=== PATIENT | female | born 1995 | race African-American/Black ===

== ENCOUNTER 2020-04-15 09:07 | Emergency (ER) | payer BC, SELFPAY ==
[2020-04-15] VITALS (15 sets, daily range): BP systolic 110–142; BP diastolic 50–79; PULSE 89–113; RESP 14–20; TEMP 36.5–37.2; O2SAT 96–100; BMI 39.8
--- NOTE | 2020-04-15 09:27 | ED_ITS ---
HPI - Dizziness General Chief Complaint: Syncope Time Seen by Provider: 04/15/20 09:17 Source: patient Mode of arrival: ambulatory Limitations: no limitations History of Present Illness HPI Narrative: 24 yo female with past medical history of PCOS, endometriosis here with 2 episodes of feeling lightheaded and she might pass out at home. She tells me she was moving around at work and coworkers told her she looked pale and then she felt lightneaded. Sat down and felt improved but second episode occcurred with standing. +vaginal bleeding for 1.5 months, varies day by day. 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 Intermittent lower abdominal cramping. Has tried multiple oral BCP but has side effects of abdominal pain and GI upset and stopped these. Tried patch but did not help with heavy bleeding so stopped that. She is currently not on any control. Has [facility] WORKER in [facility] but does not remember his name. Last saw approximately one year ago. H/o heavy bleeding requiring blood transfusion (last august/2019). MD elicited complaint: lightheadedness Onset (ago): day(s) (1 day) Timing: intermittent and episodic Severity: mild Description: lightheadedness Context: change in medication History of similar symptoms: Yes Exacerbating factors: change in body position Relieving factors: lying down Associated symptoms: abnormal vaginal bleeding Related Data Previous Rx's Medication Instructions Recorded norgestimate-ethinyl estradiol 1 tab PO DAILY #28 tab 04/15/20 [Sprintec (28)] Allergies Allergy/AdvReac Type Severity Reaction Status Date / Time acetaminophen [Percocet] Allergy Unknown Verified 06/06/17 00:00 quetiapine [From SEROQUEL] Allergy Unknown ANAPHYLAXIS Unverified 03/02/20 18:37 oxycodone [From PERCOCET] AdvReac Unknown UNKNOWN Unverified 03/02/20 18:37 percocet Allergy Unknown sweating, Uncoded 08/18/17 00:00 rapid heart beat Review of Systems Review of Systems: Yes all other systems are reviewed and are negative Constitutional: Constitutional: Reports no additional constitutional complaints, Denies body ache(s), Denies chills, Denies fever(s), Denies headache(s) and Denies weakness Eyes: Eyes: Reports no additional eye complaints and Denies change in vision ENT: Reports system reviewed and no additional complaints, except as documented, Reports dizziness, Denies headache(s), Denies nasal congestion, Denies nasal discharge and Denies neck pain Cardiovascular: Cardiovascular: Reports no additional cardiovascular complaints, Denies chest pain, Denies leg edema and Denies dyspnea Respiratory: Respiratory: Reports no additional respiratory complaints, Denies cough and Denies dyspnea Gastrointestinal: Gastrointestinal: Reports no additional gastrointestinal complaints, Denies abdominal pain, Denies diarrhea, Denies nausea and Denies vomiting Genitourinary: Genitourinary: Reports no additional female genitourinary complaints, Reports menorrhagia and Denies urinary incontinence Musculoskeletal: Musculoskeletal: Reports no additional musculoskeletal complaints, Denies back pain, Denies arthralgias, Denies joint swelling, Denies neck pain, Denies numbness and Denies tingling Integumentary/Breasts: Skin/Breast: Reports system reviewed and no additional complaints, except as docu and Denies rash Neurologic: Reports system reviewed and no additional complaints, except as documented, Denies Abnormal speech present, Reports dizziness, Denies headache(s), Denies numbness, Denies tingling and Denies weakness PMFSH Past Medical History Attestation statement: The following information was validated with the patient. Source: old records reviewed, obtained from family and nursing notes reviewed Medical History No known health problems Social History Social History Alcohol intake: never Smoking Status: Never smoker Use of substances other than those prescribed or required for medical reasons: No Advance Directives: No Advance Directives Information Provided: No Physical Exam Vital Signs: Vital Signs: Vital Signs Temp Pulse Resp BP Pulse Ox 04/15/20 17:01 98.8 F 91 16 120/72 04/15/20 16:58 98.8 F 91 16 120/72 04/15/20 15:19 98.6 F 90 18 112/64 04/15/20 15:08 98.3 F 96 14 110/62 98 04/15/20 14:34 98.3 F 96 16 117/50 L 04/15/20 14:19 97.7 F 113 H 16 142/74 H 04/15/20 11:47 98.2 F 93 14 117/64 96 04/15/20 11:04 97 04/15/20 10:53 106 H 118/74 04/15/20 10:52 100 128/76 04/15/20 09:19 98.9 F 103 H 18 124/77 100 Body Mass Index 39.8 Const: General: cooperative, healthy appearing, comfortable and no acute distress Orientation/consciousness: patient oriented x3 Limitations: no limitations HENMT: Head: Yes normal to inspection Ears: hearing grossly normal bilaterally General nose exam: Normal external nose present Face and sinus: Yes normal facial exam Mouth: Normal oral and palatal mucosa present Throat: Yes posterior oropharynx normal Eyes: General: appearance normal, both eyes and all related structures Pupils: Equal, round and reactive pupils present Neck: Neck: Yes normal visual inspection Chest: Chest palpation & inspection: normal inspection of the chest Resp: Effort & Inspection: normal respiratory effort Auscultation: clear to auscultation bilaterally Cardio: Rate: regular rate Rhythm: regular rhythm Peripheral pulses: Peripheral pulses 2+ throughout GI: Inspection: Yes normal to inspection Palpation (GI): Soft to palpation and nontender Auscultation: normal bowel sounds Back/Spine/Pelvis: Thoracic/Lumbar Spine: thoracic and lumbar spine normal to inspection Skin: General skin exam: no rashes or lesions noted Neuro: General: patient oriented x3, no focal motor deficits and normal sensation to monofilament Cranial nerves: Yes Equal, round and reactive pupils present Cognition (Neuro): normal cognition Speech: No Abnormal speech present Gait exam (Neuro): Normal gait present Motor exam (neuro): 5/5 motor strength present throughout Extrem: General: Yes normal to inspection Course Course Course Narrative: Pt here with 1.5 months of heavy vaginal bleeding, h/o same requiring blood transfusion with 2 episodes today of near syncope while working. Will need labs, UA, ur , orthostatics and pelvic exam. 1045-Hgb 6.3. Last 9.9 02/08/20. Type and screen ordered. Blood consent done. p elvic exam shows small amounts of bleeding, one clot evacuated. Pending additional labs, orthostatics. Will transfuse, d/w with [employer] WORK[employer]. 1050-Additional labs unremarkable. Orthostatics (no changes in heart rate, 15 point drop in systolic blood pressure). 1100-Discussed with Dr Cardoza, recommended hematology consult outpatient, O[employer] WORKER f/u in 1 week, starl on oral monophasic BCP. 1700-Sign out to Ysabel RAMOS pending re-check CBC post blood and discharge home. MDM - Dizziness MDM Narrative Medical decision making narrative: Considered dysfunctional uterine bleeding, ectopic , SAB, anemia, orthostatic hypotension. Medical Records Attestation: I reviewed the patient's medical records. Lab Data Attestation: I reviewed the patient's lab results. Result diagrams: 04/15/20 09:59 04/15/20 09:59 Labs: Lab Results 04/15/20 04/15/20 04/15/20 Range/Units 09:33 09:33 09:59 WBC 6.8 (4.8-10.8) X10*3/uL RBC 3.02 L (4.20-5.50) X10*6/uL Hgb 6.3 L* (12.0-16.0) g/dl Hct 22.0 L (37-47) % MCV 72.8 L (80-98) fL MCH 20.9 L (27.0-33.0) pg MCHC 28.6 L (31.0-35.0) g/dl RDW 19.0 H (11.0-16.0) % Plt Count 345 (160-400) X10*3/uL MPV 10.7 (9.4-12.3) fL Immature Gran % (Auto) 0.4 (0.0-0.4) % Neut % (Auto) 71.2 (45-73) % Lymph % (Auto) 24.3 (20-40) % [place]ke[place] % (Auto) 3.2 (2-11) % Eos % (Auto) 0.6 (0-4) % Baso % (Auto) 0.3 (0-2) % Lymph # (Auto) 1.7 (1.2-4.9) X10*3/uL [place] # (Auto) 0.2 (0.1-1.2) X10*3/uL Eos # (Auto) 0.0 (0.0-0.4) X10*3/uL Baso # (Auto) 0.0 (0.0-0.2) X10*3/uL Abs Immat Gran (auto) 0.03 (0.00-0.03) X10*3/uL Absolute Neuts (auto) 4.8 (2.0-8.3) X10*3/uL Absolute Nucleated RBC 0.000 (0.0-0.012) X10*3/uL Nucleated RBC % (auto) 0.0 (0.0-0.2) /100WBC PT (10.8-13.0) SEC INR (0.9-1.1) Sodium (135-145) mmol/L Potassium (3.3-5.1) mmol/l Chloride (96-108) mmol/L Carbon Dioxide (22-29) mmol/L Anion Gap (12-20) BUN (9-16) mg/dL Creatinine (0.5-1.4) mg/dL Estim Creat Clear Calc Estimated GFR Random Glucose (60-115) mg/dL Calcium (8.4-10.2) mg/dL Urine Color STRAW Urine Appearance CLEAR Urine pH 6.0 (5.0-8.0) Ur Specific [place] <= 1.005 (1.005-1.025) Urine Protein NEG (NEG-TRACE) MG/DL Urine Glucose (UA) NEG (NEG) MG/DL Urine Ketones NEG (NEG) MG/DL Urine Blood 3+ H (NEG) Urine Nitrite NEG (NEG) Ur Leukocyte Esterase NEG (NEG) Urine RBC 0-2 (0) /HPF Urine WBC 0-2 (0-4) /HPF Ur Squamous Epith Cells TRACE /LPF Urine Bacteria NONE /LPF Urine Test NEGATIVE (NEGATIVE) Blood Type Antibody Screen Crossmatch 04/15/20 04/15/20 04/15/20 Range/Units 09:59 09:59 11:00 WBC (4.8-10.8) X10*3/uL RBC (4.20-5.50) X10*6/uL Hgb (12.0-16.0) g/dl Hct (37-47) % MCV (80-98) fL MCH (27.0-33.0) pg MCHC (31.0-35.0) g/dl RDW (11.0-16.0) % Plt Count (160-400) X10*3/uL MPV (9.4-12.3) fL Immature Gran % (Auto) (0.0-0.4) % Neut % (Auto) (45-73) % Lymph % (Auto) (20-40) % [place]ke[place] % (Auto) (2-11) % Eos % (Auto) (0-4) % Baso % (Auto) (0-2) % Lymph # (Auto) (1.2-4.9) X10*3/uL [place] # (Auto) (0.1-1.2) X10*3/uL Eos # (Auto) (0.0-0.4) X10*3/uL Baso # (Auto) (0.0-0.2) X10*3/uL Abs Immat Gran (auto) (0.00-0.03) X10*3/uL Absolute Neuts (auto) (2.0-8.3) X10*3/uL Absolute Nucleated RBC (0.0-0.012) X10*3/uL Nucleated RBC % (auto) (0.0-0.2) /100WBC PT 11.9 (10.8-13.0) SEC INR 1.0 (0.9-1.1) Sodium 136 (135-145) mmol/L Potassium 4.2 (3.3-5.1) mmol/l Chloride 106 (96-108) mmol/L Carbon Dioxide 22 (22-29) mmol/L Anion Gap 12 (12-20) BUN 12 (9-16) mg/dL Creatinine 0.85 (0.5-1.4) mg/dL Estim Creat Clear Calc 119.6 Estimated GFR > 60 Random Glucose 104 (60-115) mg/dL Calcium 8.0 L (8.4-10.2) mg/dL Urine Color Urine Appearance Urine pH (5.0-8.0) Ur Specific [place] (1.005-1.025) Urine Protein (NEG-TRACE) MG/DL Urine Glucose (UA) (NEG) MG/DL Urine Ketones (NEG) MG/DL Urine Blood (NEG) Urine Nitrite (NEG) Ur Leukocyte Esterase (NEG) Urine RBC (0) /HPF Urine WBC (0-4) /HPF Ur Squamous Epith Cells /LPF Urine Bacteria /LPF Urine Test (NEGATIVE) Blood Type B Positive Antibody Screen NEGATIVE Crossmatch See Detail ECG Data Attestation: I personally reviewed and interpreted this ECG as follows: ECG interpretation date: 04/15/20 ECG interpretation time: 09:56 Interpretation: NSR, Normal AR, Normal QRS, Normal ST Discharge Plan Discharge Clinical Impression: Near syncope, DUB (dysfunctional uterine bleeding), Anemia Patient Disposition: Home, Self-Care Instructions: Dysfunctional Uterine Bleeding (ED), Near Syncope (ED), Anemia (ED) Additional Instructions: Follow-up with ODD JOBS DAY WORKER ( you may see your own ODD JOBS DAY WORKER or see our ODD JOBS DAY WORKER. I have attached the number for Dr Cardoza here). See them in one week. Follow-up with hematology. You need to call to make appointment. You may see [facility] for other control options but you NEED to see a OB doctor as well. See attached list for tapestry. Start control pack per recommendations. Prescriptions: New norgestimate-ethinyl estradiol [Sprintec (28)] 0.25-35 mg-mcg tablet 1 tab PO DAILY Qty: 28 RF: 0 Referrals: Jaclyn Rios MD [Physician] - 2 days Physician,None [Primary Care Provider] - 2 days Jose Cardoza MD [Physician] - 2 days Stand Alone Forms: Work/School Release Sign Out Sign Out Data: Sign Out Comment: pending repeat cbc post prbc infusion. Last updated by Verónica Driscoll NP at 04/15/20 17:17
[2020-04-15 09:41] LABS: Glucose Urine UA NEG (NEG); Leukocyte Esterase Urine NEG (NEG); Nitrite Urine NEG (NEG); Specific Gravity - Urine <= 1.005 (1.005-1.025); Urine Blood 3+ (NEG); Urine Ketones NEG (NEG); Urine Protein NEG (NEG-TRACE)
[2020-04-15 09:43] LABS: Appearance Urine CLEAR; Color Urine STRAW
[2020-04-15 09:44] LABS: UPreg QC Valid YES; Urine Pregnancy NEGATIVE (NEGATIVE)
[2020-04-15 09:50] LABS: RBC Urine 0-2 /HPF (0); Squamous Epithelial Cell Urine TRACE /LPF; WBC Urine 0-2 /HPF (0-4)
[2020-04-15 10:08] LABS: MANUAL DIFF FLAG NO
[2020-04-15 10:36] LABS: Basophils Percent Auto 0.3 % (0-2); Eosinophils Percent Auto 0.6 % (0-4); Imm Gran Abs Auto 0.03 X10*3/uL (0.00-0.03); Imm Gran Pct Auto 0.4 % (0.0-0.4); Lymphocytes Absolute Auto 1.7 X10*3/uL (1.2-4.9); Lymphocytes Percent Auto 24.3 % (20-40); Mean Corpuscular HGB Conc 28.6 g/dl (31.0-35.0); Mean Corpuscular Hemoglobin 20.9 pg (27.0-33.0); Mean Corpuscular Volume 72.8 fL (80-98); Mean Platelet Volume 10.7 fL (9.4-12.3); Monocytes Absolute Auto 0.2 X10*3/uL (0.1-1.2); Monocytes Percent Auto 3.2 % (2-11); Neutrophils Absolute Auto 4.8 X10*3/uL (2.0-8.3); Neutrophils Percent Auto 71.2 % (45-73); Platelet Count 345 X10*3/uL (160-400); Red Blood Count 3.02 X10*6/uL (4.20-5.50); White Blood Count 6.8 X10*3/uL (4.8-10.8)
[2020-04-15 10:40] LABS: Hemoglobin 6.3 g/dl (12.0-16.0); Prothrombin Time 11.9 SEC (10.8-13.0)
[2020-04-15 10:51] LABS: Anion Gap 12 (12-20); Blood Urea Nitrogen 12 mg/dL (9-16); Carbon Dioxide 22 mmol/L (22-29); Chloride 106 mmol/L (96-108); Creatinine Clr Calc Pharmacy 119.6; Estimated Glomerular Filt Rate > 60; Glucose Random 104 mg/dL (60-115); Potassium 4.2 mmol/l (3.3-5.1); Sodium 136 mmol/L (135-145)
--- NOTE | 2020-04-15 11:01 | ED_ITS ---
HPI - Female Genitourinary General Chief complaint: Syncope Time Seen by Provider: 04/15/20 09:17 Source: patient Mode of arrival: ambulatory Limitations: no limitations History of Present Illness HPI Narrative: Was called by Americo Sanches PA regarding this patient because of a month and a half history of heavy vaginal bleeding. Patient came in with near syncope to the emergency room. Her Menstrual flow today is mild. Patient has a history of blood transfusion in August of 2019. 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 No other symptoms Severity: mild Related Data Allergies Allergy/AdvReac Type Severity Reaction Status Date / Time acetaminophen [Percocet] Allergy Unknown Verified 06/06/17 00:00 quetiapine [From SEROQUEL] Allergy Unknown ANAPHYLAXIS Unverified 03/02/20 18:37 oxycodone [From PERCOCET] AdvReac Unknown UNKNOWN Unverified 03/02/20 18:37 percocet Allergy Unknown sweating, Uncoded 08/18/17 00:00 rapid heart beat Review of Systems Review of Systems: Yes all other systems are reviewed and are negative Constitutional: Constitutional: Denies headache(s) and Denies weakness ENT: Reports dizziness and Denies headache(s) Cardiovascular: Cardiovascular: Denies chest pain, Denies irregular heart rhythm, Denies dyspnea and Denies dyspnea on exertion Respiratory: Respiratory: Reports no additional respiratory complaints, Denies cough, Denies dyspnea and Denies dyspnea on exertion Gastrointestinal: Gastrointestinal: Reports no additional gastrointestinal complaints, Denies abdominal pain, Denies change in bowel habits, Denies nausea and Denies vomiting Genitourinary: Genitourinary: Reports no additional female genitourinary complaints Musculoskeletal: Musculoskeletal: Denies numbness and Denies tingling Neurologic: Reports system reviewed and no additional complaints, except as documented, Denies Abnormal speech present, Reports dizziness, Denies headache(s), Denies numbness, Denies tingling and Denies weakness PMFSH Past Medical History Medical History No known health problems Social History Social History Alcohol intake: never Smoking Status: Never smoker Use of substances other than those prescribed or required for medical reasons: No Advance Directives: No Advance Directives Information Provided: No Physical Exam Vital Signs: Vital Signs: Vital Signs Temp Pulse Resp BP Pulse Ox 04/15/20 11:04 97 04/15/20 10:53 106 H 118/74 04/15/20 10:52 100 128/76 04/15/20 09:19 98.9 F 103 H 18 124/77 100 Body Mass Index 39.8 No exam done, per RICHARD More vital signs showed orthostatic changes, pelvic exam showed mild bleeding no any evidence of active bleeding, otherwise negative Neuro: Speech: No Abnormal speech present Course Course Course Narrative: Since the patient is not in active bleeding, test is negative, hemoglobin/hematocrit is 6.3/22, recommended 2 units of packed RBCs, IV hydration, hemodynamically stabilized the patient, monophasic control pill to be started, follow-up with OBGYN early next week, follow-up with Hematology to rule hematologic disorders causing heavy bleeding, instruction to be given to the patient call back if bleeding is heavy. MDM - Female Genitourinary Lab Data Result diagrams: 04/15/20 09:59 04/15/20 09:59 Labs: Lab Results 04/15/20 04/15/20 04/15/20 Range/Units 09:33 09:33 09:59 WBC 6.8 (4.8-10.8) X10*3/uL RBC 3.02 L (4.20-5.50) X10*6/uL Hgb 6.3 L* (12.0-16.0) g/dl Hct 22.0 L (37-47) % MCV 72.8 L (80-98) fL MCH 20.9 L (27.0-33.0) pg MCHC 28.6 L (31.0-35.0) g/dl RDW 19.0 H (11.0-16.0) % Plt Count 345 (160-400) X10*3/uL MPV 10.7 (9.4-12.3) fL Immature Gran % (Auto) 0.4 (0.0-0.4) % Neut % (Auto) 71.2 (45-73) % Lymph % (Auto) 24.3 (20-40) % [place] % (Auto) 3.2 (2-11) % Eos % (Auto) 0.6 (0-4) % Baso % (Auto) 0.3 (0-2) % Lymph # (Auto) 1.7 (1.2-4.9) X10*3/uL [place] # (Auto) 0.2 (0.1-1.2) X10*3/uL Eos # (Auto) 0.0 (0.0-0.4) X10*3/uL Baso # (Auto) 0.0 (0.0-0.2) X10*3/uL Abs Immat Gran (auto) 0.03 (0.00-0.03) X10*3/uL Absolute Neuts (auto) 4.8 (2.0-8.3) X10*3/uL Absolute Nucleated RBC 0.000 (0.0-0.012) X10*3/uL Nucleated RBC % (auto) 0.0 (0.0-0.2) /100WBC PT (10.8-13.0) SEC INR (0.9-1.1) Sodium (135-145) mmol/L Potassium (3.3-5.1) mmol/l Chloride (96-108) mmol/L Carbon Dioxide (22-29) mmol/L Anion Gap (12-20) BUN (9-16) mg/dL Creatinine (0.5-1.4) mg/dL Estim Creat Clear Calc Estimated GFR Random Glucose (60-115) mg/dL Calcium (8.4-10.2) mg/dL Urine Color STRAW Urine Appearance CLEAR Urine pH 6.0 (5.0-8.0) Ur Specific [place] <= 1.005 (1.005-1.025) Urine Protein NEG (NEG-TRACE) MG/DL Urine Glucose (UA) NEG (NEG) MG/DL Urine Ketones NEG (NEG) MG/DL Urine Blood 3+ H (NEG) Urine Nitrite NEG (NEG) Ur Leukocyte Esterase NEG (NEG) Urine RBC 0-2 (0) /HPF Urine WBC 0-2 (0-4) /HPF Ur Squamous Epith Cells TRACE /LPF Urine Bacteria NONE /LPF Urine Test NEGATIVE (NEGATIVE) Crossmatch 04/15/20 04/15/20 04/15/20 Range/Units 09:59 09:59 11:00 WBC (4.8-10.8) X10*3/uL RBC (4.20-5.50) X10*6/uL Hgb (12.0-16.0) g/dl Hct (37-47) % MCV (80-98) fL MCH (27.0-33.0) pg MCHC (31.0-35.0) g/dl RDW (11.0-16.0) % Plt Count (160-400) X10*3/uL MPV (9.4-12.3) fL Immature Gran % (Auto) (0.0-0.4) % Neut % (Auto) (45-73) % Lymph % (Auto) (20-40) % [place] % (Auto) (2-11) % Eos % (Auto) (0-4) % Baso % (Auto) (0-2) % Lymph # (Auto) (1.2-4.9) X10*3/uL [place] # (Auto) (0.1-1.2) X10*3/uL Eos # (Auto) (0.0-0.4) X10*3/uL Baso # (Auto) (0.0-0.2) X10*3/uL Abs Immat Gran (auto) (0.00-0.03) X10*3/uL Absolute Neuts (auto) (2.0-8.3) X10*3/uL Absolute Nucleated RBC (0.0-0.012) X10*3/uL Nucleated RBC % (auto) (0.0-0.2) /100WBC PT 11.9 (10.8-13.0) SEC INR 1.0 (0.9-1.1) Sodium 136 (135-145) mmol/L Potassium 4.2 (3.3-5.1) mmol/l Chloride 106 (96-108) mmol/L Carbon Dioxide 22 (22-29) mmol/L Anion Gap 12 (12-20) BUN 12 (9-16) mg/dL Creatinine 0.85 (0.5-1.4) mg/dL Estim Creat Clear Calc 119.6 Estimated GFR > 60 Random Glucose 104 (60-115) mg/dL Calcium 8.0 L (8.4-10.2) mg/dL Urine Color Urine Appearance Urine pH (5.0-8.0) Ur Specific [place] (1.005-1.025) Urine Protein (NEG-TRACE) MG/DL Urine Glucose (UA) (NEG) MG/DL Urine Ketones (NEG) MG/DL Urine Blood (NEG) Urine Nitrite (NEG) Ur Leukocyte Esterase (NEG) Urine RBC (0) /HPF Urine WBC (0-4) /HPF Ur Squamous Epith Cells /LPF Urine Bacteria /LPF Urine Test (NEGATIVE) Crossmatch See Detail Discharge Plan Discharge Clinical Impression: Syncope due to orthostatic hypotension
[2020-04-15] MEDS: 0.9 % Sodium Chloride 1,000 ML 999 ML IV (11:08)
--- NOTE | 2020-04-15 18:58 | PC.NURSE ---
pt recieved first ordered unit of rbc at 1419, verified by tata perla. pt finished first unit of rbc at 1658. correlating documentation shows all required vital signs which were all within normal limits, no evidence of reaction to tranfusion. at this time, both units transfused. provider aware. repeat cbc ordered and potential dc if wnl.
--- NOTE | 2020-04-15 19:16 | PC.NURSE ---
report received from Lui Darling. pt has received both blood transfusions and post cbc being drawn at this time. pt denies pain. iv sight flushed patent and benign. pt states she is still passing dark red blood. skin warm and dry vitals stable.
[2020-04-15 19:32] LABS: MANUAL DIFF FLAG NO
[2020-04-15 19:41] LABS: Basophils Percent Auto 0.1 % (0-2); Eosinophils Absolute Auto 0.1 X10*3/uL (0.0-0.4); Eosinophils Percent Auto 0.5 % (0-4); Hematocrit 30.6 % (37-47); Hemoglobin 9.3 g/dl (12.0-16.0); Imm Gran Abs Auto 0.03 X10*3/uL (0.00-0.03); Imm Gran Pct Auto 0.3 % (0.0-0.4); Lymphocytes Absolute Auto 2.4 X10*3/uL (1.2-4.9); Lymphocytes Percent Auto 21.7 % (20-40); Mean Corpuscular HGB Conc 30.4 g/dl (31.0-35.0); Mean Corpuscular Volume 78.9 fL (80-98); Mean Platelet Volume 10.7 fL (9.4-12.3); Monocytes Absolute Auto 0.4 X10*3/uL (0.1-1.2); NRBC Pct Auto 0.2 /100WBC (0.0-0.2); Neutrophils Percent Auto 73.4 % (45-73); Platelet Count 264 X10*3/uL (160-400); Red Blood Count 3.88 X10*6/uL (4.20-5.50); Red Cell Distribution Width 22.3 % (11.0-16.0); White Blood Count 10.9 X10*3/uL (4.8-10.8)
--- NOTE | 2020-04-17 | ECG_ITS ---
Test Reason : SYNCOPE Blood Pressure : / mmHG Vent. Rate : 093 BPM Atrial Rate : 093 BPM P-R Int : 140 ms QRS Dur : 078 ms QT Int : 358 ms P-R-T Axes : 024 027 022 degrees QTc Int : 445 ms Normal sinus rhythm Normal ECG When compared with ECG of 06-JUL-2019 01:22, No significant change was found Referred By: Tomasz Scott Electronically Signed By:SANTY PANIAGUA MD
== END 2020-04-15 20:51 | disposition home or self-care (01) ==
PROVIDERS: Nurse Practitioner Family; Physician Assistant; Emergency Provider Emergency Medicine
DX: I95.1 Orthostatic hypotension (principal); Z20.828 Contact with and (suspected) exposure to other viral communicable diseases
CPT/HCPCS: 36415; 36430; 80048; 81001; 81025; 85025; 85060; 85610; 86850; 86900; 86901; 86920; 86923; 93005; 96360; 99285; P9016

== ENCOUNTER 2020-11-16 06:47 | Emergency (ER) | payer BC, SELFPAY ==
--- NOTE | ~2020-11-16 | US_ITS ---
EXAMINATION: US ABDOMEN LIMITED CLINICAL INFORMATION: Right upper quadrant pain, rule out gallbladder abnormality. COMPARISON: CT scan of the abdomen and pelvis and abdominal ultrasound dated 02/08/2020. TECHNIQUE: Real-time imaging of the right upper quadrant abdominal viscera. FINDINGS: PANCREAS: Visualized portions unremarkable. LIVER: Small anechoic cyst adjacent to the gallbladder measures 0.8 cm. GALLBLADDER: Unremarkable. COMMON BILE DUCT: Normal in caliber measuring 0.3 cm in diameter. RIGHT KIDNEY: 9.7 cm. Unremarkable. FREE FLUID: None. US/US abdomen limited IMPRESSION: 1. No significant gallbladder abnormality. 2. Small hepatic cyst adjacent to the gallbladder demonstrates benign features.
--- NOTE | 2020-11-16 07:04 | ED_ITS ---
HPI - Nausea/Vomiting/Diarrhea General Chief complaint: General Medical Stated complaint: nausea/vomiting Time Seen by Provider: 11/16/20 07:04 Source: patient Mode of arrival: ambulatory Limitations: no limitations History of Present Illness MD elicited complaint: nausea, vomiting and abdominal pain Pertinent past history: other (GERD) Onset (ago): day(s) (last night) Associated nausea: Yes Associated abdominal pain: Yes Location of pain: epigastric and RUQ Pain consistency: constant Severity: moderate Quality: stabbing Exacerbating factors: eating Relieving factors: none Context: other (started after eating BBQ and ribs) Associated symptoms: loss of appetite, malaise and nausea/vomiting Treatment prior to arrival: immodium and other OTC medicine Related Data Previous Rx's Medication Instructions Recorded norgestimate-ethinyl estradiol 1 tab PO DAILY #28 tab 04/15/20 [Sprintec (28)] famotidine [Pepcid] 20 mg PO DAILY PRN #30 tab 11/16/20 ondansetron 4 mg PO Q8H PRN #20 tab 11/16/20 Allergies Allergy/AdvReac Type Severity Reaction Status Date / Time acetaminophen [Percocet] Allergy Unknown Verified 06/06/17 00:00 quetiapine [From SEROQUEL] Allergy Unknown ANAPHYLAXIS Unverified 03/02/20 18:37 oxycodone [From PERCOCET] AdvReac Unknown UNKNOWN Unverified 03/02/20 18:37 percocet Allergy Unknown sweating, Uncoded 08/18/17 00:00 rapid heart beat Review of Systems Review of Systems: Constitutional : No Weight loss, No Fever, No Chills ENT/Mouth : No sore throat, No Rhinorrhea Eyes: No Swelling, No Redness Cardiovascular : No Chest Pain, No SOB, NoEdema Respiratory : No Cough, No Sputum, No Wheezing Gastrointestinal : Positive Nausea, Positive Vomiting, no Diarrhea, positive abdominal Pain, No Hematochezia, No Melena Genitourinary : No Dysuria, No Urinary Frequency, No Hematuria, No Urgency Musculoskeletal : No joint pain, No Myalgias, No Joint Swelling Skin : No Skin Lesions, No rash Neuro : No Weakness, No Numbness, No Dizziness, No Headache Psych : No Anxiety/Panic, No Depression Heme/Lymph: No Bruising, No Lymphadenopathy Endocrine : No Polyuria, No Polydipsia All other systems reviewed and are negative. Gastrointestinal: Gastrointestinal: Reports nausea PMFSH Past Medical History Attestation statement: The following information was validated with the patient. Medical History (Updated 11/16/20 @ 09:27 by Kisha Cook DO) Endometriosis No known health problems PCOS (polycystic ovarian syndrome) Social History Social History (Updated 11/16/20 @ 07:19 by Kisha Cook DO) Alcohol intake: never Patient Tobacco Use Status: Never used Tobacco Use of substances other than those prescribed or required for medical reasons: No Advance Directives: Yes Advance Directives Information Provided: No Advance Directives on File: No Patient : No Physical Exam Vital Signs: Vital Signs: Last Vital Signs Temp 98.2 F 11/16/20 09:19 Pulse 80 11/16/20 09:19 Resp 18 11/16/20 09:19 BP 128/84 11/16/20 09:19 Pulse Ox 99 11/16/20 09:19 Body Mass Index 42.9 Appearance: Alert. Oriented X3. No acute distress. Eyes: Pupils equal, round and reactive to light. ENT: Pharynx normal. Neck: Normal inspection. Neck supple. CVS: Normal heart rate and rhythm. Pulses normal. Respiratory: No respiratory distress. Breath sounds normal. Abdomen: Soft and moderate RUQ pain + [place] sign Skin: Skin warm and dry. Normal skin color. Normal skin turgor. Extremities: No lower extremity edema. No calf ttp Neuro: Oriented X 3. No motor deficit. No sensory deficit. Course Course Course Narrative: no acute findings, stable for DC MDM - Nausea/Vomiting/Diarrhea MDM Narrative Medical decision making narrative: 25 yo female with endometriosis/PCOS here with RUQ pain after eating BBQ at this time will need labs, IVF, IV pain medications, US to evaluate gallbadder, dispo per results and findings. Lab Data Result diagrams: 11/16/20 07:32 11/16/20 07:32 Labs: Lab Results 11/16/20 11/16/20 11/16/20 Range/Units 07:32 07:32 07:32 WBC 7.1 (4.8-10.8) X10*3/uL RBC 4.77 D (4.20-5.50) X10*6/uL Hgb 10.4 L (12.0-16.0) g/dl Hct 34.3 L (37-47) % MCV 71.9 L (80-98) fL MCH 21.8 L (27.0-33.0) pg MCHC 30.3 L (31.0-35.0) g/dl RDW 18.7 H (11.0-16.0) % Plt Count 373 D (160-400) X10*3/uL MPV 10.4 (9.4-12.3) fL Immature Gran % (Auto) 0.3 (0.0-0.4) % Neut % (Auto) 67.8 (45-73) % Lymph % (Auto) 27.1 (20-40) % [place] % (Auto) 3.7 (2-11) % Eos % (Auto) 0.8 (0-4) % Baso % (Auto) 0.3 (0-2) % Lymph # (Auto) 1.9 (1.2-4.9) X10*3/uL [place] # (Auto) 0.3 (0.1-1.2) X10*3/uL Eos # (Auto) 0.1 (0.0-0.4) X10*3/uL Baso # (Auto) 0.0 (0.0-0.2) X10*3/uL Abs Immat Gran (auto) 0.02 (0.00-0.03) X10*3/uL Absolute Neuts (auto) 4.8 (2.0-8.3) X10*3/uL Absolute Nucleated RBC 0.000 (0.0-0.012) X10*3/uL Nucleated RBC % (auto) 0.0 (0.0-0.2) /100WBC Hold Blue Top SEE NOTE Sodium 138 (135-145) mmol/L Potassium 4.4 (3.3-5.1) mmol/L Chloride 107 (96-108) mmol/L Carbon Dioxide 22 (22-29) mmol/L Anion Gap 13 (12-20) BUN 18 H (9-16) mg/dL Creatinine 0.97 (0.5-1.4) mg/dL Estim Creat Clear Calc 108.5 Estimated GFR > 60 Random Glucose 110 (60-115) mg/dL Calcium 9.1 D (8.4-10.2) mg/dL Magnesium 2.1 (1.6-2.6) mg/dL Total Bilirubin 0.6 (0.0-1.0) mg/dL Direct Bilirubin 0.2 (0.0-0.5) mg/dL AST 17 (5-31) U/L ALT 15 (0-31) U/L Alkaline Phosphatase 74 (39-117) U/L Total Protein 8.0 (6.5-8.0) g/dL Albumin 4.2 (3.5-5.0) g/dL Lipase 19 (8-78) U/L Discharge Plan Discharge Clinical Impression: Gastritis Qualifiers: Gastritis type: unspecified gastritis Chronicity: acute Gastritis bleeding: without bleeding Qualified Code(s): K29.00 - Acute gastritis without bleeding Patient Disposition: Home, Self-Care Instructions: Gastritis (ED) Additional Instructions: return to ED for any worsening symptoms or concerns Prescriptions: New famotidine [Pepcid] 20 mg tablet 20 mg PO DAILY PRN (Reason: abdominal discomfort) Qty: 30 RF: 0 ondansetron 4 mg tablet,disintegrating 4 mg PO Q8H PRN (Reason: nausea and vomiting) Qty: 20 RF: 0 No Action norgestimate-ethinyl estradiol [Sprintec (28)] 0.25-35 mg-mcg tablet 1 tab PO DAILY Qty: 28 RF: 0 Stand Alone Forms: Work/School Release
[2020-11-16 07:11] VITALS: BP 128/84; PULSE 98; RESP 16; TEMP 36.9; O2SAT 97; BMI 42.9
[2020-11-16] MEDS: 0.9 % Sodium Chloride 1,000 ML 999 ML IVCONT (07:29)
[2020-11-16] MEDS: Famotidine/PF 20 MG/2 ML VIAL IVPUSH (07:35)
[2020-11-16] MEDS: ondansetron HCL 4 MG/2 ML VIAL IVPUSH (07:35)
[2020-11-16] MEDS: Ketorolac Tromethamine 30 MG/ML VIAL IVPUSH (07:35)
[2020-11-16 07:36] LABS: MANUAL DIFF FLAG NO
[2020-11-16 07:41] LABS: Basophils Percent Auto 0.3 % (0-2); Eosinophils Absolute Auto 0.1 X10*3/uL (0.0-0.4); Eosinophils Percent Auto 0.8 % (0-4); Hematocrit 34.3 % (37-47); Hemoglobin 10.4 g/dl (12.0-16.0); Imm Gran Abs Auto 0.02 X10*3/uL (0.00-0.03); Imm Gran Pct Auto 0.3 % (0.0-0.4); Lymphocytes Absolute Auto 1.9 X10*3/uL (1.2-4.9); Lymphocytes Percent Auto 27.1 % (20-40); Mean Corpuscular HGB Conc 30.3 g/dl (31.0-35.0); Mean Corpuscular Hemoglobin 21.8 pg (27.0-33.0); Mean Corpuscular Volume 71.9 fL (80-98); Mean Platelet Volume 10.4 fL (9.4-12.3); Monocytes Absolute Auto 0.3 X10*3/uL (0.1-1.2); Monocytes Percent Auto 3.7 % (2-11); Neutrophils Absolute Auto 4.8 X10*3/uL (2.0-8.3); Neutrophils Percent Auto 67.8 % (45-73); Platelet Count 373 X10*3/uL (160-400); Red Blood Count 4.77 X10*6/uL (4.20-5.50); Red Cell Distribution Width 18.7 % (11.0-16.0); White Blood Count 7.1 X10*3/uL (4.8-10.8)
[2020-11-16 08:09] LABS: Alanine Aminotransferase 15 U/L (0-31); Albumin Level 4.2 g/dL (3.5-5.0); Alkaline Phosphatase 74 U/L (39-117); Anion Gap 13 (12-20); Aspartate Amino Transferase 17 U/L (5-31); Bilirubin Direct 0.2 mg/dL (0.0-0.5); Bilirubin Total 0.6 mg/dL (0.0-1.0); Blood Urea Nitrogen 18 mg/dL (9-16); Calcium 9.1 mg/dL (8.4-10.2); Carbon Dioxide 22 mmol/L (22-29); Chloride 107 mmol/L (96-108); Creatinine Clr Calc Pharmacy 108.5; Estimated Glomerular Filt Rate > 60; Glucose Random 110 mg/dL (60-115); Lipase 19 U/L (8-78); Magnesium 2.1 mg/dL (1.6-2.6); Potassium 4.4 mmol/L (3.3-5.1); Sodium 138 mmol/L (135-145)
[2020-11-16 09:19] VITALS: BP 128/84; PULSE 80; RESP 18; TEMP 36.8; O2SAT 99
[2020-11-16 09:29] LABS: Glucose Urine UA NEG (NEG); Leukocyte Esterase Urine NEG (NEG); Nitrite Urine NEG (NEG); Specific Gravity - Urine <= 1.005 (1.005-1.025); Urine Blood TRACE (NEG); Urine Ketones NEG (NEG); Urine Protein NEG (NEG-TRACE)
[2020-11-16 09:31] LABS: Appearance Urine CLEAR; Color Urine STRAW
[2020-11-16 09:32] LABS: UPreg QC Valid YES; Urine Pregnancy NEGATIVE (NEGATIVE)
[2020-11-16 09:40] LABS: Bacteria Urine TRACE /LPF; RBC Urine 0-2 /HPF (0); Squamous Epithelial Cell Urine TRACE /LPF; WBC Urine 0-2 /HPF (0-4)
== END 2020-11-16 09:41 | disposition home or self-care (01) ==
PROVIDERS: Emergency Provider Emergency Medicine
DX: K29.00 Acute gastritis without bleeding (principal); R10.11 Right upper quadrant pain
CPT/HCPCS: 36415; 76705; 80048; 80076; 81001; 81025; 83690; 83735; 85025; 96361; 96374; 96375; 99284; J1885; J2405

== ENCOUNTER 2020-12-11 10:09 | Emergency (ER) | payer BC, SELFPAY ==
[2020-12-11 10:24] VITALS: BP 125/68; PULSE 101; RESP 14; TEMP 37.1; O2SAT 100; BMI 42.9
--- NOTE | 2020-12-11 10:53 | ED_ITS ---
HPI - Weakness General Chief complaint: Weakness Stated complaint: weakness Time Seen by Provider: 12/11/20 10:52 Source: patient and family Mode of arrival: ambulatory Limitations: no limitations History of Present Illness HPI Narrative: 25 yo female with past medical history of PCOS, endometriosis here with feeling lightheaded and she might pass out at home since waking this morning. she has a history of irregular and heavy vaginal bleeding. She did have her menses this weekend but is unable to quantify how many pads or tampons she use. This morning her bleeding seems improved. Of note, she was seen here in this emergency department March 2020 for similar and was found to be anemic requiring 2 units of PRBCs and was discharged home on a monophasic control pill with recommendation to follow up with van owner operator and Hematology for bleeding workup. patient tells me that she did follow-up with gamma ray operator in [facility] (unknown name) and was taking a control pill till approximately 3 months ago. She discontinued this due to side effects of abdominal pain and GI upset. she has not followed up with Hematology due to concern for COVID with exposure. She did receive moderna vaccine with her 2nd injection 10/26. Related Data Previous Rx's Medication Instructions Recorded norgestimate-ethinyl estradiol 1 tab PO DAILY #28 tab 04/15/20 [Sprintec (28)] famotidine [Pepcid] 20 mg PO DAILY PRN #30 tab 11/16/20 ondansetron 4 mg PO Q8H PRN #20 tab 11/16/20 Allergies Allergy/AdvReac Type Severity Reaction Status Date / Time acetaminophen [Percocet] Allergy Unknown Verified 06/06/17 00:00 quetiapine [From SEROQUEL] Allergy Unknown ANAPHYLAXIS Unverified 03/02/20 18:37 oxycodone [From PERCOCET] AdvReac Unknown UNKNOWN Unverified 03/02/20 18:37 percocet Allergy Unknown sweating, Uncoded 08/18/17 00:00 rapid heart beat Review of Systems Review of Systems: Yes all other systems are reviewed and are negative Constitutional: Constitutional: Reports no additional constitutional complaints, Denies body ache(s), Denies chills, Denies fever(s), Denies headache(s) and Reports weakness Eyes: Eyes: Reports no additional eye complaints and Denies change in vision ENT: Reports system reviewed and no additional complaints, except as documented, Reports dizziness, Denies headache(s), Denies nasal congestion, Denies nasal discharge and Denies neck pain Cardiovascular: Cardiovascular: Reports no additional cardiovascular complaints, Denies chest pain, Denies leg edema and Denies dyspnea Respiratory: Respiratory: Reports no additional respiratory complaints, Denies cough and Denies dyspnea Gastrointestinal: Gastrointestinal: Reports no additional gastrointestinal complaints, Denies abdominal pain, Reports hematochezia, Denies diarrhea, Denies nausea and Denies vomiting Genitourinary: Genitourinary: Reports no additional female genitourinary complaints, Reports abnormal vaginal bleeding and Denies urinary incontinence Musculoskeletal: Musculoskeletal: Reports no additional musculoskeletal c omplaints, Denies back pain, Denies arthralgias, Denies joint swelling, Denies neck pain, Denies numbness and Denies tingling Integumentary/Breasts: Skin/Breast: Reports system reviewed and no additional complaints, except as docu and Denies rash Neurologic: Reports system reviewed and no additional complaints, except as documented, Denies Abnormal speech present, Reports dizziness, Denies headache(s), Denies numbness, Denies tingling and Reports weakness PMFSH Past Medical History Attestation statement: The following information was validated with the patient. Source: old records reviewed and nursing notes reviewed Medical History Endometriosis No known health problems PCOS (polycystic ovarian syndrome) Social History Social History Alcohol intake: never Patient Tobacco Use Status: Never used Tobacco Advance Directives: No Advance Directives Information Provided: No Patient : No Physical Exam Vital Signs: Vital Signs: Last Vital Signs Temp 98.2 F 12/11/20 12:33 Pulse 90 12/11/20 12:37 Resp 15 12/11/20 12:33 BP 137/86 12/11/20 12:37 Pulse Ox 100 12/11/20 12:33 Body Mass Index 42.9 Const: General: cooperative, healthy appearing, comfortable and no acute distress Orientation/consciousness: patient oriented x3 Limitations: no limitations HENMT: Head: Yes normal to inspection Ears: hearing grossly normal bilaterally General nose exam: Normal external nose present Face and sinus: Yes normal facial exam Mouth: Normal oral and palatal mucosa present Throat: Yes posterior oropharynx normal Eyes: General: appearance normal, both eyes and all related structures Pupils: Equal, round and reactive pupils present Neck: Neck: Yes normal visual inspection Chest: Chest palpation & inspection: normal inspection of the chest Resp: Effort & Inspection: normal respiratory effort Auscultation: clear to auscultation bilaterally Cardio: Rate: regular rate Rhythm: regular rhythm Peripheral pulses: Peripheral pulses 2+ throughout GI: Inspection: Yes normal to inspection Palpation (GI): Soft to palpation and nontender Auscultation: normal bowel sounds : Other: Mild amount of bright red bleeding from the cervical os. Bimanual exam- vagina & uterus: normal bimanual exam Bimanual Exam- Adnexa, other: normal adnexae Back/Spine/Pelvis: Thoracic/Lumbar Spine: thoracic and lumbar spine normal to inspection Skin: General skin exam: no rashes or lesions noted Neuro: General: patient oriented x3, no focal motor deficits and normal sensation to monofilament Cranial nerves: Yes Equal, round and reactive pupils present Cognition (Neuro): normal cognition Speech: No Abnormal speech present Gait exam (Neuro): Normal gait present Motor exam (neuro): 5/5 motor strength present throughout Extrem: General: Yes normal to inspection Course Course Course Narrative: 25-year-old female here with complaints of feeling lightheaded, dizzy with position changes for 24 hours. Does have history of heavy and irregular vaginal bleeding and had her menses over the weekend with heavy bleeding. She tells the bleeding has improved this morning but now she is concerned that she may be anemic. Will need labs, UA, urine , orthostatics vital signs, EKG, pelvic exam 1600- labs show a mild microcytic anemia of 9.3/31.9. patient baseline 10.4/34.3. pelvic exam shows a mild amount of bright red bleeding. Patient tells me she has changed her pad once while being here in the emergency department. Due to her dysfunctional uterine bleeding with anemia we discussed restarting a monophasic control but the patient tells me she is unable to tolerate this due to multiple side effects. She tells me this problem has been ongoing for quite some time and she has been seen by gamma ray operator at [facility], [facility] and [facility]. Her vitals are stable. Her orthostatics are negative. Her anemia is not much worsened from baseline and she has only a little bit of bleeding on exam. We discussed she can follow up outpatient with gynecology. She previously had been referred to hematology for workup for her bleeding. She is requesting a new referral. Reviewed worrisome signs and symptoms and when to return to the emergency department. Comfortable discharge home. MDM - Weakness Differential Diagnosis Differential diagnosis: Likely anemia Medical Records Attestation: I reviewed the patient's medical records. Lab Data Attestation: I reviewed the patient's lab results. Result diagrams: 12/11/20 12:29 12/11/20 12:29 Labs: Lab Results 12/11/20 12/11/20 12/11/20 Range/Units 12: 12: 12:46 WBC 9.6 (4.8-10.8) X10*3/uL RBC 4.29 (4.20-5.50) X10*6/uL Hgb 9.3 L (12.0-16.0) g/dl Hct 31.9 L (37-47) % MCV 74.4 L (80-98) fL MCH 21.7 L (27.0-33.0) pg MCHC 29.2 L (31.0-35.0) g/dl RDW 19.6 H (11.0-16.0) % Plt Count 331 (160-400) X10*3/uL MPV 10.0 (9.4-12.3) fL Immature Gran % (Auto) 0.3 (0.0-0.4) % Neut % (Auto) 73.1 H (45-73) % Lymph % (Auto) 23.1 (20-40) % [place] % (Auto) 3.1 (2-11) % Eos % (Auto) 0.2 (0-4) % Baso % (Auto) 0.2 (0-2) % Lymph # (Auto) 2.2 (1.2-4.9) X10*3/uL [place] # (Auto) 0.3 (0.1-1.2) X10*3/uL Eos # (Auto) 0.0 (0.0-0.4) X10*3/uL Baso # (Auto) 0.0 (0.0-0.2) X10*3/uL Abs Immat Gran (auto) 0.03 (0.00-0.03) X10*3/uL Absolute Neuts (auto) 7.0 (2.0-8.3) X10*3/uL Absolute Nucleated RBC 0.000 (0.0-0.012) X10*3/uL Nucleated RBC % (auto) 0.0 (0.0-0.2) /100WBC Sodium 140 (135-145) mmol/L Potassium 4.8 (3.3-5.1) mmol/L Chloride 108 (96-108) mmol/L Carbon Dioxide 26 (22-29) mmol/L Anion Gap 11 L (12-20) BUN 8 L D (9-16) mg/dL Creatinine 0.82 (0.5-1.4) mg/dL Estim Creat Clear Calc 128.3 Estimated GFR > 60 Random Glucose 95 (60-115) mg/dL Calcium 9.1 (8.4-10.2) mg/dL Total Bilirubin < 0.2 (0.0-1.0) mg/dL Direct Bilirubin < 0.2 (0.0-0.5) mg/dL AST 15 (5-31) U/L ALT 11 (0-31) U/L Alkaline Phosphatase 67 (39-117) U/L Total Protein 7.5 (6.5-8.0) g/dL Albumin 4.1 (3.5-5.0) g/dL Urine Color PINK Urine Appearance HAZY Urine pH 7.0 (5.0-8.0) Ur Specific [place] 1.010 (1.005-1.025) Urine Protein NEG (NEG-TRACE) MG/DL Urine Glucose (UA) NEG (NEG) MG/DL Urine Ketones NEG (NEG) MG/DL Urine Blood 3+ H (NEG) Urine Nitrite NEG (NEG) Ur Leukocyte Esterase NEG (NEG) Urine RBC 50-75 H (0) /HPF Urine WBC 0 (0-4) /HPF Ur Squamous Epith Cells 1+ /LPF Urine Bacteria NONE /LPF Urine Test (NEGATIVE) 12/11/20 Range/Units 12:46 WBC (4.8-10.8) X10*3/uL RBC (4.20-5.50) X10*6/uL Hgb (12.0-16.0) g/dl Hct (37-47) % MCV (80-98) fL MCH (27.0-33.0) pg MCHC (31.0-35.0) g/dl RDW (11.0-16.0) % Plt Count (160-400) X10*3/uL MPV (9.4-12.3) fL Immature Gran % (Auto) (0.0-0.4) % Neut % (Auto) (45-73) % Lymph % (Auto) (20-40) % [place] % (Auto) (2-11) % Eos % (Auto) (0-4) % Baso % (Auto) (0-2) % Lymph # (Auto) (1.2-4.9) X10*3/uL [place] # (Auto) (0.1-1.2) X10*3/uL Eos # (Auto) (0.0-0.4) X10*3/uL Baso # (Auto) (0.0-0.2) X10*3/uL Abs Immat Gran (auto) (0.00-0.03) X10*3/uL Absolute Neuts (auto) (2.0-8.3) X10*3/uL Absolute Nucleated RBC (0.0-0.012) X10*3/uL Nucleated RBC % (auto) (0.0-0.2) /100WBC Sodium (135-145) mmol/L Potassium (3.3-5.1) mmol/L Chloride (96-108) mmol/L Carbon Dioxide (22-29) mmol/L Anion Gap (12-20) BUN (9-16) mg/dL Creatinine (0.5-1.4) mg/dL Estim Creat Clear Calc Estimated GFR Random Glucose (60-115) mg/dL Calcium (8.4-10.2) mg/dL Total Bilirubin (0.0-1.0) mg/dL Direct Bilirubin (0.0-0.5) mg/dL AST (5-31) U/L ALT (0-31) U/L Alkaline Phosphatase (39-117) U/L Total Protein (6.5-8.0) g/dL Albumin (3.5-5.0) g/dL Urine Color Urine Appearance Urine pH (5.0-8.0) Ur Specific [place] (1.005-1.025) Urine Protein (NEG-TRACE) MG/DL Urine Glucose (UA) (NEG) MG/DL Urine Ketones (NEG) MG/DL Urine Blood (NEG) Urine Nitrite (NEG) Ur Leukocyte Esterase (NEG) Urine RBC (0) /HPF Urine WBC (0-4) /HPF Ur Squamous Epith Cells /LPF Urine Bacteria /LPF Urine Test NEGATIVE (NEGATIVE) ECG Data Attestation: I personally reviewed and interpreted this ECG as follows: ECG interpretation date: 12/11/20 ECG interpretation time: 11:30 Interpretation: normal sinus rhythm with a rate of 82, normal OR, normal QRS, normal QT Discharge Plan Discharge Clinical Impression: Vaginal bleeding, Anemia Patient Disposition: Home, Self-Care Instructions: Dysfunctional Uterine Bleeding (ED), Anemia (ED) Prescriptions: No Action famotidine [Pepcid] 20 mg tablet 20 mg PO DAILY PRN (Reason: abdominal discomfort) Qty: 30 RF: 0 ondansetron 4 mg tablet,disintegrating 4 mg PO Q8H PRN (Reason: nausea and vomiting) Qty: 20 RF: 0 norgestimate-ethinyl estradiol [Sprintec (28)] 0.25-35 mg-mcg tablet 1 tab PO DAILY Qty: 28 RF: 0 Referrals: Gordo Lerma MD [Physician] - 2 days Jose Cardoza MD [Physician] - 2 days Interventions: ED Discharge Assessment Last Done: 12/11/20 15:26 Discharge Date/Time: 12/11/20 15:00
--- NOTE | 2020-12-11 11:03 | ECG_ITS ---
Test Reason : WEAKNESS Blood Pressure : / mmHG Vent. Rate : 082 BPM Atrial Rate : 082 BPM P-R Int : 142 ms QRS Dur : 074 ms QT Int : 366 ms P-R-T Axes : 029 017 013 degrees QTc Int : 427 ms Normal sinus rhythm Normal ECG When compared to the previous EKG of No significant changes seen Referred By: Verónica Driscoll Electronically Signed By:MEGAN WELDON MD
[2020-12-11 12:33] VITALS: BP 127/80; PULSE 80; PULSE 81; RESP 15; TEMP 36.8; O2SAT 100
[2020-12-11 12:35] LABS: MANUAL DIFF FLAG NO
[2020-12-11 12:36] VITALS: BP 130/83; PULSE 81
[2020-12-11 12:37] VITALS: BP 137/86; PULSE 90
[2020-12-11 12:37] LABS: Basophils Percent Auto 0.2 % (0-2); Eosinophils Percent Auto 0.2 % (0-4); Hematocrit 31.9 % (37-47); Hemoglobin 9.3 g/dl (12.0-16.0); Imm Gran Abs Auto 0.03 X10*3/uL (0.00-0.03); Imm Gran Pct Auto 0.3 % (0.0-0.4); Lymphocytes Absolute Auto 2.2 X10*3/uL (1.2-4.9); Lymphocytes Percent Auto 23.1 % (20-40); Mean Corpuscular HGB Conc 29.2 g/dl (31.0-35.0); Mean Corpuscular Hemoglobin 21.7 pg (27.0-33.0); Mean Corpuscular Volume 74.4 fL (80-98); Monocytes Absolute Auto 0.3 X10*3/uL (0.1-1.2); Monocytes Percent Auto 3.1 % (2-11); Neutrophils Percent Auto 73.1 % (45-73); Platelet Count 331 X10*3/uL (160-400); Red Blood Count 4.29 X10*6/uL (4.20-5.50); Red Cell Distribution Width 19.6 % (11.0-16.0); White Blood Count 9.6 X10*3/uL (4.8-10.8)
[2020-12-11 12:55] LABS: Glucose Urine UA NEG (NEG); Leukocyte Esterase Urine NEG (NEG); Nitrite Urine NEG (NEG); Urine Blood 3+ (NEG); Urine Ketones NEG (NEG); Urine Protein NEG (NEG-TRACE)
[2020-12-11 13:00] LABS: Urine Pregnancy NEGATIVE (NEGATIVE)
[2020-12-11 13:01] LABS: Appearance Urine HAZY; Color Urine PINK; UPreg QC Valid YES
[2020-12-11 13:12] LABS: Anion Gap 11 (12-20)
[2020-12-11 13:13] LABS: Alanine Aminotransferase 11 U/L (0-31); Albumin Level 4.1 g/dL (3.5-5.0); Alkaline Phosphatase 67 U/L (39-117); Aspartate Amino Transferase 15 U/L (5-31); Bilirubin Direct < 0.2 mg/dL (0.0-0.5); Bilirubin Total < 0.2 mg/dL (0.0-1.0); Blood Urea Nitrogen 8 mg/dL (9-16); Calcium 9.1 mg/dL (8.4-10.2); Carbon Dioxide 26 mmol/L (22-29); Chloride 108 mmol/L (96-108); Creatinine Clr Calc Pharmacy 128.3; Estimated Glomerular Filt Rate > 60; Glucose Random 95 mg/dL (60-115); Potassium 4.8 mmol/L (3.3-5.1); Sodium 140 mmol/L (135-145); Total Protein 7.5 g/dL (6.5-8.0)
[2020-12-11 13:16] LABS: RBC Urine 50-75 /HPF (0); Squamous Epithelial Cell Urine 1+ /LPF; WBC Urine 0 /HPF (0-4)
--- NOTE | 2020-12-11 13:55 | MHC.CM.ED ---
Patient remains in ER. Per Tanesha, patient's insurance will change to Medicare/[employer] on 12/14. Spoke with Sally at [facility]. Her business office will run patient's insurance. If Medicare/As Seen on TV is active on 12/14 they have a bed to offer patient. Continue to monitor for d/c needs.
== END 2020-12-11 15:00 | disposition home or self-care (01) ==
PROVIDERS: Nurse Practitioner Family; Emergency Provider Emergency Medicine Emergency Medical Services
DX: D64.9 Anemia, unspecified (principal); N93.8 Other specified abnormal uterine and vaginal bleeding
CPT/HCPCS: 36415; 80048; 80076; 81001; 81003; 81025; 85025; 93005; 99284

== ENCOUNTER → 2020-12-13 08:39 | Outpatient (BNV) | payer BC, OTHER, SELFPAY | PROVIDERS: Visit Provider Internal Medicine | DX: D50.9 Iron deficiency anemia, unspecified (principal); Z33.1 Pregnant state, incidental | CPT/HCPCS: 99203; 99212; 99213; 99214; G2211 ==

== ENCOUNTER 2020-12-19 12:06 | Emergency (ER) | payer BC, SELFPAY ==
--- NOTE | ~2020-12-19 | US_ITS ---
EXAMINATION: PELVIC ULTRASOUND CLINICAL INFORMATION: Vaginal bleeding COMPARISON: CT abdomen pelvis 02/08/2020 and pelvic ultrasound 10/01/2017 TECHNIQUE: Both transabdominal and endovaginal scanning was performed. FINDINGS: An anteverted anteflexed uterus is present measuring 6.8 x 3.7 x 4.3 cm. A small mural uterine fibroid is present in the posterior uterine body measuring 1.1 x 1.1 x 1.0 cm (previously 1.7 x 1.2 x 1.4 cm). The fibroid does not abut the endometrial canal. The uterus otherwise appears normal. No fluid is seen in the endometrial cavity which appears normal measuring 9 mm in thickness. The right ovary measures 3.5 x 2.9 x 2.5 cm for a volume of 13.3 mL and appears unremarkable. The left ovary measures 3.5 x 2.0 x 2.2 cm for a volume of 8.1 mL and appears unremarkable. No free fluid is present in the cul-de-sac US/US pelvic and transvaginal IMPRESSION: Small mural uterine fibroid which has decreased in size since the prior exam. An etiology for the patient's vaginal bleeding has not been found.
[2020-12-19 12:49] VITALS: BP 122/67; PULSE 100; RESP 18; TEMP 36.6; O2SAT 100; BMI 41.1
[2020-12-19 16:36] LABS: MANUAL DIFF FLAG NO
[2020-12-19 16:41] LABS: Basophils Percent Auto 0.2 % (0-2); Eosinophils Absolute Auto 0.1 X10*3/uL (0.0-0.4); Eosinophils Percent Auto 0.5 % (0-4); Hematocrit 27.4 % (37-47); Hemoglobin 8.1 g/dl (12.0-16.0); Imm Gran Abs Auto 0.04 X10*3/uL (0.00-0.03); Imm Gran Pct Auto 0.4 % (0.0-0.4); Lymphocytes Absolute Auto 2.4 X10*3/uL (1.2-4.9); Lymphocytes Percent Auto 23.8 % (20-40); Mean Corpuscular HGB Conc 29.6 g/dl (31.0-35.0); Mean Corpuscular Hemoglobin 21.5 pg (27.0-33.0); Mean Corpuscular Volume 72.9 fL (80-98); Monocytes Absolute Auto 0.3 X10*3/uL (0.1-1.2); Monocytes Percent Auto 2.9 % (2-11); Neutrophils Absolute Auto 7.3 X10*3/uL (2.0-8.3); Neutrophils Percent Auto 72.2 % (45-73); Platelet Count 388 X10*3/uL (160-400); Red Blood Count 3.76 X10*6/uL (4.20-5.50); Red Cell Distribution Width 19.4 % (11.0-16.0); White Blood Count 10.2 X10*3/uL (4.8-10.8)
[2020-12-19 17:08] LABS: Alanine Aminotransferase 10 U/L (0-31); Albumin Level 4.2 g/dL (3.5-5.0); Alkaline Phosphatase 77 U/L (39-117); Anion Gap 15 (12-20); Aspartate Amino Transferase 12 U/L (5-31); Bilirubin Total 0.6 mg/dL (0.0-1.0); Blood Urea Nitrogen 7 mg/dL (9-16); Calcium 9.3 mg/dL (8.4-10.2); Carbon Dioxide 22 mmol/L (22-29); Chloride 106 mmol/L (96-108); Creatinine Clr Calc Pharmacy 115.4; Estimated Glomerular Filt Rate > 60; Glucose Random 96 mg/dL (60-115); Potassium 4.2 mmol/L (3.3-5.1); Sodium 139 mmol/L (135-145); Total Protein 7.9 g/dL (6.5-8.0)
--- NOTE | 2020-12-19 17:26 | ED_ITS ---
HPI - Female Genitourinary General Chief complaint: Vaginal Bleeding Stated complaint: vaginal bleeding Time Seen by Provider: 12/19/20 12:52 Source: patient Mode of arrival: ambulatory Limitations: no limitations History of Present Illness HPI Narrative: 25-year-old female with past medical history of dysfunctional uterine bleeding requiring blood transfusion, blood loss anemia presents with 2 weeks of heavy vaginal, shortness of breath on exertion, pallor, and fatigue. She states that this is the worst that she has felt over the past few months. She does have an appointment with OBGYN however she feels like her symptoms are so severe that she cannot wait for that appointment. She does report palpitati ons, abdominal cramping, and changes her pad approximately once an hour today. Over the past few days she has been changing her pad several times per hour. Did not have any concerns about sexually transmitted infections, denies vaginal trauma, sexual assault, chest pain or pressure, abdominal distention, dysuria, hematuria, nausea, vomiting, diarrhea, diaphoresis, and edema. MD elicited complaint: vaginal bleeding Onset (ago): week(s) Location of symptoms: vaginal Severity: severe Quality of pain: cramping Consistency: intermittent Vaginal bleeding: heavy, bright red and clots Exacerbating factors: movement Relieving factors: none Associated symptoms: shortness of breath Treatment prior to arrival: none Sexual activity: Yes Patient : No Related Data Previous Rx's Medication Instructions Recorded famotidine [Pepcid] 20 mg PO DAILY PRN #30 tab 11/16/20 Allergies Allergy/AdvReac Type Severity Reaction Status Date / Time acetaminophen [Percocet] Allergy Unknown Verified 06/06/17 00:00 quetiapine [From SEROQUEL] Allergy Unknown ANAPHYLAXIS Unverified 03/02/20 18:37 oxycodone [From PERCOCET] AdvReac Unknown UNKNOWN Unverified 03/02/20 18:37 percocet Allergy Unknown sweating, Uncoded 08/18/17 00:00 rapid heart beat Review of Systems Review of Systems: Constitutional: Positive pallor, positive fatigue, No Fever, No Chills ENT/Mouth: No sore throat, No Rhinorrhea Eyes: No Eye Pain, No Redness Cardiovascular: No Chest Pain, positive SOB on minimal exertion Respiratory: No Cough, No Sputum, No Wheezing Gastrointestinal: no Nausea, No Vomiting, No Diarrhea, positive abdominal pain, Genitourinary: positive irregular bleeding, No Dysuria, No Urinary Frequency, positive pelvic pain Musculoskeletal: No Myalgias Skin: No rash Neuro: No Weakness, No Headache Psych: No Anxiety/Panic, No Depression Heme/Lymph: No bruising, No Lymphadenopathy Endocrine: No Polyuria, No Polydipsia Yes all other systems are reviewed and are negative [facility] Past Medical History Attestation statement: The following information was validated with the patient. Source: old records reviewed Medical History Endometriosis No known health problems PCOS (polycystic ovarian syndrome) Family History Family History Mother Anemia Asthma Sister Anemia Maternal Grandmother Stroke Asthma Family/Other Heart attack Brother Asthma Maternal Aunt Asthma Paternal Grandfather Diabetes Paternal Grandmother Dementia Social History Social History Alcohol intake: former Patient Tobacco Use Status: Never used Tobacco Advance Directives: No Advance Directives Information Provided: No Patient : No Physical Exam Vital Signs: Vital Signs: Last Vital Signs Temp 98.4 F 12/19/20 21:35 Pulse 93 12/19/20 21:35 Resp 16 12/19/20 21:35 BP 113/63 12/19/20 21:35 Pulse Ox 100 12/19/20 21:35 Body Mass Index 41.1 Appearance: Alert. Oriented X3. moderate distress. pale. Eyes: Pupils equal, round and reactive to light. Conjunctiva pale. ENT: Pharynx normal. Moist mucous membranes. Neck: Normal inspection. Neck supple. CVS: tachycardic heart rate and rhythm. pulses normal. Respiratory: No respiratory distress at rest. dyspnea on exertion. Breath sounds normal. Abdomen: Soft and nontender. Skin: Skin warm and dry. Normal skin color. Normal skin turgor. Extremities: No lower extremity edema. Neuro: No motor deficit. No sensory deficit. : Speculum Exam - Vagina: normal appearance of the vagina and vaginal bleeding Speculum Exam - Cervix: normal appearance of the cervix and Cervical os closed Bimanual exam- vagina & uterus: normal bimanual exam Bimanual Exam- Adnexa, other: normal adnexae OB/external & speculum: vaginal bleeding Course Course Course Narrative: 25-year-old female with past medical history of dysfunctional uterine bleeding presents with 2 weeks of abnormal vaginal bleed ing, shortness of breath, dyspnea on exertion, and pallor. Lab values were drawn while patient was waiting in the emergency department waiting room, H&H is 8.1/27.4, prior lab values have been as low as 6. I feel at this time because of patient's presentation, she is symptomatic for anemia with shortness of breath, tachycardia, and pallor I feel that treating her with 1 packed unit would be the best plan of action. She did consent to blood transfusion and understands the risk. Pelvic ultrasound is negative for acute findings, a small uterine cyst/ Fibroid is noted. patient was advised to follow-up with her OBGYN. Patient verbalized understanding of and agrees to plan of care discharge home. MDM - Female Genitourinary Differential Diagnosis Differential diagnosis: Likely ruptured ovarian cyst and dysmenorrhea Medical Records Attestation: I reviewed the patient's medical records. Lab Data Attestation: I reviewed the patient's lab results. Result diagrams: 12/19/20 16:30 12/19/20 16:30 Labs: Lab Results 12/19/20 12/19/20 12/19/20 Range/Units 16:30 16:30 18:19 WBC 10.2 (4.8-10.8) X10*3/uL RBC 3.76 L (4.20-5.50) X10*6/uL Hgb 8.1 L (12.0-16.0) g/dl Hct 27.4 L (37-47) % MCV 72.9 L (80-98) fL MCH 21.5 L (27.0-33.0) pg MCHC 29.6 L (31.0-35.0) g/dl RDW 19.4 H (11.0-16.0) % Plt Count 388 (160-400) X10*3/uL MPV 10.0 (9.4-12.3) fL Immature Gran % (Auto) 0.4 (0.0-0.4) % Neut % (Auto) 72.2 (45-73) % Lymph % (Auto) 23.8 (20-40) % [place] % (Auto) 2.9 (2-11) % Eos % (Auto) 0.5 (0-4) % Baso % (Auto) 0.2 (0-2) % Lymph # (Auto) 2.4 (1.2-4.9) X10*3/uL [place] # (Auto) 0.3 (0.1-1.2) X10*3/uL Eos # (Auto) 0.1 (0.0-0.4) X10*3/uL Baso # (Auto) 0.0 (0.0-0.2) X10*3/uL Abs Immat Gran (auto) 0.04 H (0.00-0.03) X10*3/uL Absolute Neuts (auto) 7.3 (2.0-8.3) X10*3/uL Absolute Nucleated RBC 0.000 (0.0-0.012) X10*3/uL Nucleated RBC % (auto) 0.0 (0.0-0.2) /100WBC Sodium 139 (135-145) mmol/L Potassium 4.2 (3.3-5.1) mmol/L Chloride 106 (96-108) mmol/L Carbon Dioxide 22 (22-29) mmol/L Anion Gap 15 (12-20) BUN 7 L (9-16) mg/dL Creatinine 0.89 (0.5-1.4) mg/dL Estim Creat Clear Calc 115.4 Estimated GFR > 60 Random Glucose 96 (60-115) mg/dL Calcium 9.3 (8.4-10.2) mg/dL Total Bilirubin 0.6 (0.0-1.0) mg/dL AST 12 (5-31) U/L ALT 10 (0-31) U/L Alkaline Phosphatase 77 (39-117) U/L Total Protein 7.9 (6.5-8.0) g/dL Albumin 4.2 (3.5-5.0) g/dL Beta HCG, Quant < 2 mIU/mL Blood Type B Positive Antibody Screen NEGATIVE Crossmatch See Detail Imaging Data Pelvic ultrasound: Attestation: I personally reviewed and interpreted this imaging study as follows: Radiologist's impression: EXAMINATION: PELVIC ULTRASOUND CLINICAL INFORMATION: Vaginal bleeding COMPARISON: CT abdomen pelvis 02/08/2020 and pelvic ultrasound 10/01/2017 TECHNIQUE: Both transabdominal and endovaginal scanning was performed. FINDINGS: An anteverted anteflexed uterus is present measuring 6.8 x 3.7 x 4.3 cm. A small mural uterine fibroid is present in the posterior uterine body measuring 1.1 x 1.1 x 1.0 cm (previously 1.7 x 1.2 x 1.4 cm). The fibroid does not abut the endometrial canal. The uterus otherwise appears normal. No fluid is seen in the endometrial cavity which appears normal measuring 9 mm in thickness. The right ovary measures 3.5 x 2.9 x 2.5 cm for a volume of 13.3 mL and appears unremarkable. The left ovary measures 3.5 x 2.0 x 2.2 cm for a volume of 8.1 mL and appears unremarkable. No free fluid is present in the cul-de-sac US/US pelvic and transvaginal IMPRESSION: Small mural uterine fibroid which has decreased in size since the prior exam. An etiology for the patient's vaginal bleeding has not been found. Critical Care Time Critical Care Time Critical Care Time: Yes Total Critical Care Time: 35 Attestation: I have personally provided critical care time exclusive of time spent on separately billable procedures. Time includes review of laboratory data, radiology results, discussion with consultants, and monitoring for potential d ecompensation. Interventions were performed as documented. Discharge Plan Discharge Clinical Impression: Vaginal bleeding, Acute blood loss anemia Patient Disposition: Home, Self-Care Instructions: Dysfunctional Uterine Bleeding (ED), Blood Transfusion Reactions (ED), Anemia (ED), Blood Transfusion (DC) Additional Instructions: you were evaluated for dysfunctional vaginal bleeding. We transfused 1 unit of packed red blood cells for blood loss anemia. You must follow-up with your OBGYN and primary care physician As scheduled. Thank you for choosing this emergency department for evaluation. Please follow-up with primary care physician as needed. Return to the emergency depart ment for any new, concerning, or worsening symptoms. Prescriptions: No Action famotidine [Pepcid] 20 mg tablet 20 mg PO DAILY PRN (Reason: abdominal discomfort) Qty: 30 RF: 0 Interventions: ED Discharge Assessment Last Done: 12/19/20 21:35 Discharge Date/Time: 12/19/20 21:36
[2020-12-19 17:55] LABS: HCG Quantitative < 2 mIU/mL
--- NOTE | 2020-12-19 19:00 | PC.NURSE ---
pt off to ultrasound
[2020-12-19 19:23] VITALS: BP 104/46; PULSE 87; RESP 16; TEMP 37; O2SAT 99
[2020-12-19 19:46] VITALS: BP 100/57; PULSE 91; RESP 16; TEMP 37
[2020-12-19 20:04] VITALS: BP 123/43; PULSE 91; RESP 16; TEMP 36.9
[2020-12-19 21:30] VITALS: BP 113/63; PULSE 93; RESP 16; TEMP 36.9
[2020-12-19 21:35] VITALS: BP 113/63; PULSE 93; RESP 16; TEMP 36.9; O2SAT 100
== END 2020-12-19 21:36 | disposition home or self-care (01) ==
PROVIDERS: Nurse Practitioner Family; Emergency Provider Emergency Medicine
DX: N93.8 Other specified abnormal uterine and vaginal bleeding (principal); D62 Acute posthemorrhagic anemia
CPT/HCPCS: 36415; 36430; 76830; 76856; 80053; 84702; 85025; 86850; 86900; 86901; 86923; 99283; 99291; P9016

== ENCOUNTER 2020-12-25 08:58 | Outpatient (REF) | payer BC, SELFPAY ==
[2020-12-25 11:52] LABS: Hematocrit 29.6 % (37-47); Hemoglobin 8.7 g/dl (12.0-16.0); Mean Corpuscular HGB Conc 29.4 g/dl (31.0-35.0); Mean Corpuscular Hemoglobin 22.4 pg (27.0-33.0); Mean Corpuscular Volume 76.3 fL (80-98); Mean Platelet Volume 10.4 fL (9.4-12.3); Platelet Count 361 X10*3/uL (160-400); Red Blood Count 3.88 X10*6/uL (4.20-5.50); Red Cell Distribution Width 19.5 % (11.0-16.0); White Blood Count 8.7 X10*3/uL (4.8-10.8)
[2020-12-25 12:25] LABS: HCG Quantitative < 2 mIU/mL; TSH reflex Free T4 1.73 uIU/mL (0.32-4.0)
[2020-12-25 15:24] LABS: CT PCR NOT DETECTED (Not Detect.); NG PCR NOT DETECTED (Not Detect.)
[2020-12-29 12:01] LABS: Ristocetin Cofactor 147 % NORMAL (42-200); Von Willebrand Factor Antigen 162 % (50-217)
[2020-12-29 12:31] LABS: Factor VIII Activity 263 % normal (50-180)
[2021-01-02 16:11] LABS: Factor VIII Activity Clotting 284 % normal (50-180); PTT, Activated 20 sec (23-32); Ristocetin Cofactor 200 % normal (42-200)
== END 2020-12-25 08:59 | disposition home or self-care (01) ==
LOC: HO.LAB 08:58
PROVIDERS: Visit Provider Obstetrics & Gynecology
DX: Z30.430 Encounter for insertion of intrauterine contraceptive device (principal); N92.1 Excessive and frequent menstruation with irregular cycle
CPT/HCPCS: 36415; 58100; 58300; 84443; 84702; 85027; 85240; 85245; 85246; 85247; 85730; 87491; 87591; 88142; 88305; J7298

== ENCOUNTER 2020-12-28 07:58 | Outpatient (REF) | payer BC, SELFPAY | END 2020-12-28 07:59 | disposition home or self-care (01) | LOC: HO.MDS 07:58 | PROVIDERS: Visit Provider Internal Medicine | DX: D50.9 Iron deficiency anemia, unspecified (principal) | CPT/HCPCS: 96365; 96366; J1200; J1750; Q0163 ==

== ENCOUNTER 2021-01-08 10:55 | Outpatient (REF) | payer BC, SELFPAY ==
--- NOTE | ~2021-01-08 | US_ITS ---
EXAMINATION: PELVIC ULTRASOUND CLINICAL INFORMATION: Abnormal bleeding COMPARISON: Previous exam most recent 12/19/2020 TECHNIQUE: Transabdominal and transvaginal pelvic ultrasound. Transvaginal exam was performed for better visualization of the uterus and ovaries. FINDINGS: The uterus is anteverted and measures 9.7 4.3 x 5.2 cm in dimension. No focal uterine lesion is seen. Previously identified 1 cm posterior uterine body fibroid is not appreciated. There is an IUD in the uterus in satisfactory position. The endometrium is normal in thickness measuring 1 cm. The ovaries are normal-appearing. The right ovary measures 2.2 x 2.9 x 2.8 cm and the left ovary measures 2.6 x 2.6 x 2.1 cm. There is no fluid in the pelvis. US/US pelvic and transvaginal IMPRESSION: New IUD in the uterus in satisfactory position.
== END 2021-01-08 10:56 | disposition home or self-care (01) ==
LOC: HO.US 10:55
PROVIDERS: Visit Provider Obstetrics & Gynecology
DX: R10.2 Pelvic and perineal pain (principal); N93.9 Abnormal uterine and vaginal bleeding, unspecified
CPT/HCPCS: 76830; 76856

== ENCOUNTER 2021-01-08 14:53 | Outpatient (REF) | payer BC, SELFPAY ==
[2021-01-09 05:24] LABS: CT PCR NOT DETECTED (Not Detect.); NG PCR NOT DETECTED (Not Detect.)
== END 2021-01-08 14:54 | disposition home or self-care (01) ==
LOC: HO.LAB 14:53
PROVIDERS: Visit Provider Obstetrics & Gynecology
DX: Z11.3 Encounter for screening for infections with a predominantly sexual mode of transmission (principal); R10.2 Pelvic and perineal pain
CPT/HCPCS: 87491; 87591

== ENCOUNTER → 2021-01-15 14:41 | Outpatient (BNVA) | payer BC, SELFPAY | PROVIDERS: Visit Provider Obstetrics & Gynecology ==

== ENCOUNTER → 2021-01-17 13:45 | Outpatient (BNVA) | payer BC, SELFPAY | PROVIDERS: Visit Provider Obstetrics & Gynecology | DX: Z30.432 Encounter for removal of intrauterine contraceptive device (principal); T83.32XA Displacement of intrauterine contraceptive device, initial encounter; N92.1 Excessive and frequent menstruation with irregular cycle | CPT/HCPCS: 58301 ==

== ENCOUNTER → 2021-02-01 12:47 | Outpatient (BNVA) | payer BC, SELFPAY | PROVIDERS: Visit Provider Surgery ==

== ENCOUNTER → 2021-02-07 08:03 | Outpatient (BNVA) | payer BC, SELFPAY | PROVIDERS: Visit Provider Surgery ==

== ENCOUNTER → 2021-02-09 07:15 | Outpatient (BNVA) | payer BC, SELFPAY | PROVIDERS: Visit Provider Surgery ==

== ENCOUNTER 2021-02-16 09:43 | Outpatient (REF) | payer BC, SELFPAY ==
--- NOTE | ~2021-02-16 | XR_ITS ---
EXAMINATION: XR CHEST CLINICAL INFORMATION: Obesity COMPARISON: None TECHNIQUE: 2 views of the chest were obtained. FINDINGS: No significant abnormality is noted involving the heart, lungs, mediastinum, bony thorax or soft tissues. XR/XR chest 2V IMPRESSION: Unremarkable examination.
--- NOTE | 2021-02-16 09:50 | ECG_ITS ---
Test Reason : E66.01 Blood Pressure : / mmHG Vent. Rate : 073 BPM Atrial Rate : 073 BPM P-R Int : 140 ms QRS Dur : 076 ms QT Int : 398 ms P-R-T Axes : -04 024 014 degrees QTc Int : 438 ms Normal sinus rhythm Normal ECG When compared with ECG of 11-DEC-2020 11:31, No significant change was found Referred By: Willem Veras Electronically Signed By:KATHYA MOSS
[2021-02-16 10:29] LABS: MANUAL DIFF FLAG NO
[2021-02-16 10:36] LABS: Basophils Percent Auto 0.3 % (0-2); Eosinophils Percent Auto 0.5 % (0-4); Hematocrit 41.1 % (37-47); Hemoglobin 13.6 g/dl (12.0-16.0); Imm Gran Abs Auto 0.02 X10*3/uL (0.00-0.03); Imm Gran Pct Auto 0.3 % (0.0-0.4); Lymphocytes Percent Auto 24.9 % (20-40); Mean Corpuscular HGB Conc 33.1 g/dl (31.0-35.0); Mean Corpuscular Hemoglobin 28.3 pg (27.0-33.0); Mean Corpuscular Volume 85.4 fL (80-98); Monocytes Absolute Auto 0.3 X10*3/uL (0.1-1.2); Monocytes Percent Auto 3.6 % (2-11); Neutrophils Absolute Auto 5.5 X10*3/uL (2.0-8.3); Neutrophils Percent Auto 70.4 % (45-73); Platelet Count 303 X10*3/uL (160-400); Red Blood Count 4.81 X10*6/uL (4.20-5.50); White Blood Count 7.9 X10*3/uL (4.8-10.8)
[2021-02-16 10:48] LABS: Estimated Average Glucose 91 mg/dL; Hemoglobin A1c % 4.8 %
[2021-02-16 11:09] LABS: Ferritin 51 ng/mL (10-122); TSH reflex Free T4 1.87 uIU/mL (0.32-4.0); Vitamin D 25-OH Total 7.3 ng/mL (>30)
[2021-02-16 11:21] LABS: Alanine Aminotransferase 122 U/L (0-31); Albumin Level 4.3 g/dL (3.5-5.0); Alkaline Phosphatase 76 U/L (39-117); Anion Gap 15 (12-20); Aspartate Amino Transferase 51 U/L (5-31); Bilirubin Total 0.4 mg/dL (0.0-1.0); Blood Urea Nitrogen 16 mg/dL (9-16); Calcium 9.7 mg/dL (8.4-10.2); Carbon Dioxide 20 mmol/L (22-29); Chloride 107 mmol/L (96-108); Cholesterol 202 mg/dL; Estimated Glomerular Filt Rate > 60; Glucose Random 94 mg/dL (60-115); HDL Cholesterol 42 mg/dL; Iron 47 mcg/dL (30-160); LDL Cholesterol Calculated 144 mg/dl; Percent Iron Saturation 14 % (15-50); Potassium 4.6 mmol/L (3.3-5.1); Sodium 137 mmol/L (135-145); Total Iron Binding Capacity 343 mcg/dL (228-428); Total Protein 7.6 g/dL (6.5-8.0); Triglycerides 83 mg/dL; Unsaturated Iron Binding 296 ug/dL
[2021-02-16 11:51] LABS: Folate 14.3 ng/mL (> or = 4.0); Vitamin B12 283 pg/mL (200-900)
[2021-02-20 16:02] LABS: Vitamin B1 7 nmol/L (8-30)
[2021-02-20 16:31] LABS: Zinc 72 mcg/dL (60-130)
[2021-02-20 16:41] LABS: Insulin Level Total 12.2 uIU/mL
[2021-02-21 18:42] LABS: Vitamin A 58 mcg/dL (38-98)
[2021-02-24 13:21] LABS: Calcium (PTHI) 9.9 mg/dL (8.6-10.2); PTHI 39 pg/mL (14-64)
== END 2021-02-16 09:44 | disposition home or self-care (01) ==
LOC: HO.XRAY 09:43
PROVIDERS: Visit Provider Surgery
DX: E66.01 Morbid (severe) obesity due to excess calories (principal); K21.9 Gastro-esophageal reflux disease without esophagitis
CPT/HCPCS: 36415; 71046; 80053; 80061; 82306; 82607; 82728; 82746; 83036; 83525; 83540; 83970; 84425; 84443; 84590; 84630; 85025; 86140; 93005

== ENCOUNTER 2021-02-26 15:30 | Outpatient (REF) | payer BC, SELFPAY ==
[2021-02-27 01:50] LABS: CT PCR NOT DETECTED (Not Detect.); NG PCR NOT DETECTED (Not Detect.)
== END 2021-02-26 15:31 | disposition home or self-care (01) ==
LOC: HO.LAB 15:30
PROVIDERS: Visit Provider Obstetrics & Gynecology
DX: N92.1 Excessive and frequent menstruation with irregular cycle (principal)
CPT/HCPCS: 81025; 87491; 87591

== ENCOUNTER 2021-03-01 08:46 | Outpatient (REF) | payer BC, SELFPAY ==
[2021-03-02 15:25] LABS: H Pylori Breath Test Negative (Negative)
== END 2021-03-01 08:47 | disposition home or self-care (01) ==
LOC: CF 08:46
PROVIDERS: Surgery; Visit Provider Physician Assistant
DX: E66.01 Morbid (severe) obesity due to excess calories (principal); K21.9 Gastro-esophageal reflux disease without esophagitis
CPT/HCPCS: 36415; 83013

== ENCOUNTER → 2021-03-05 08:31 | Outpatient (BNVA) | payer BC, SELFPAY | PROVIDERS: Visit Provider Surgery ==

== ENCOUNTER → 2021-03-07 08:12 | Outpatient (BNVA) | payer BC, SELFPAY | PROVIDERS: Visit Provider Surgery ==

== ENCOUNTER → 2021-03-08 08:09 | Outpatient (BNVA) | payer BC, SELFPAY | PROVIDERS: Visit Provider Dietitian, Registered | DX: E66.01 Morbid (severe) obesity due to excess calories (principal) | CPT/HCPCS: 97802 ==

== ENCOUNTER 2021-03-15 08:25 | Outpatient (REF) | payer BC, SELFPAY ==
--- NOTE | ~2021-03-15 | US_ITS ---
EXAMINATION: US COMPLETE ABDOMEN WITH LIVER ELASTOGRAPHY CLINICAL INFORMATION: Morbid and severe obesity. COMPARISON: None. TECHNIQUE: Real-time imaging of the abdominal viscera. Noninvasive ultrasound liver fibrosis assessment is performed using [employer] ElastPQ point quantification shear wave elastography (pSWE) with a C5-2 MHz transducer. Multiple elastography samples are obtained. FINDINGS: PANCREAS: There is limited visualization of the pancreas with the body of the pancreas appearing homogeneous in echotexture. ABDOMINAL AORTA: The proximal, middle, and distal aortic segments are normal in caliber. INFERIOR VENA CAVA: Visualized portions are normal. LIVER: The liver demonstrates normal size, contour and increased echogenicity. No focal lesion or intrahepatic biliary duct dilatation. The right lobe measures 13.7 cm in length. The left lobe measures 10.9 cm in length. Portal flow is hepatopedal. Shear wave liver elastography median stiffness is 1.53 m/s (reference: normal median stiffness is 1.3 m/s or less). IQR/median stiffness to assess sampling precision is 0.16 (reference: good quality data set is IQR/median stiffness of 0.15 or less). GALLBLADDER: Normal. The gallbladder is physiologically distended without evidence of stones, sludge, polyps, wall thickening, or pericholecystic fluid. COMMON BILE DUCT: Normal in caliber measuring 0.3 cm in diameter. RIGHT KIDNEY: Normal. No hydronephrosis. No renal calculi or focal parenchymal lesions. The kidney measures 8.5 cm in maximum dimension. LEFT KIDNEY: Normal. No hydronephrosis. No renal calculi or focal parenchymal lesions. The kidney measures 9.4 cm in maximum dimension. SPLEEN: Normal. The spleen measures 10.6 cm in maximum dimension. FREE FLUID: None. US/US abdomen comp w elastography IMPRESSION: 1. Hepatic steatosis without focal lesion. 2. Liver elastography: The median stiffness is 1.53. This is suggestive of cACLD ruled out. REFERENCE: Society of Radiologists in Ultrasound Liver Stiffness Thresholds (2020): LIVER STIFFNESS THRESHOLDS: *Liver Stiffness equal or less than 1.3 m/s: High probability of being normal. *Liver Stiffness less than 1.7 m/s: In the absence of other known clinical signs, rules out compensated advanced chronic liver disease. *Liver Stiffness 1.7-2.1 m/s: Suggestive of compensated advanced chronic liver disease but need further test for confirmation. *Liver Stiffness over 2.1 m/s: Rules in compensated advanced chronic liver disease. *Liver Stiffness over 2.4 m/s: Suggestive of clinically significant portal hypertension. QUALITY OF DATA SET: *IQR/Median value equal or less than 0.15 implies a quality data set. *IQR/Median value over 0.15 implies a poor quality data set. SIGNIFICANT CHANGE FROM PRIOR EXAM: Significant change if liver stiffness measurement is 10% or greater from prior exam. OTHER CONSIDERATIONS: The stage of liver fibrosis may be overestimated in the setting of acute hepatitis, liver inflammation, elevated liver function tests, hepatic vascular congestion, obstructive cholestasis, non-fasting state, and infiltrative diseases such as amyloidosis and lymphoma. In some patients with NAFLD, the liver stiffness thresholds for compensated advanced chronic liver disease may be lower. In causes other than viral hepatitis and NAFLD, liver stiffness thresholds are not well established.
--- NOTE | ~2021-03-15 | US_ITS ---
EXAMINATION: US PELVIS CLINICAL INFORMATION: Abnormal uterine/vaginal bleeding COMPARISON: Ultrasound pelvis 01/08/2021 TECHNIQUE: Ultrasound of the pelvis is performed using both transabdominal and transvaginal transducers along with Doppler. Transvaginal imaging is performed due to inadequate visualization transabdominally. FINDINGS: Uterus: The uterus is anteverted and measures 7.8 x 4.0 x 5.3 cm. The double wall endometrial thickness is 7 mm. The uterus is smooth in contour and has normal myometrial echogenicity. No visible fibroid. Adnexa: Both ovaries are visualized. There is normal color flow to the adnexa. There is no ovarian torsion. There is no pelvic ascites or fluid collection. Right ovary measures 3.4 x 2.2 x 1.9 cm cm. 7.3 mL venous the right ovary measured 3.2 x 2.9 x 2.8 cm Left ovary measures 2.8 x 1.8 x 2.0 cm. 5.1. Previously left ovary measured 2.6 x 2.6 x 2.1 cm. US/US pelvic and transvaginal IMPRESSION: Previously visualized IUD has been removed. The ovaries and uterus appear unremarkable.
--- NOTE | ~2021-03-15 | FL_ITS ---
EXAMINATION: XR GI SERIES CLINICAL INFORMATION: Obesity COMPARISON: None TECHNIQUE: Upper GI was performed using thin and thick barium and effervescent granules FINDINGS: Esophageal motility is normal. There is a small sliding-type hiatal hernia. There is mild gastroesophageal reflux. The stomach and duodenum are normal-appearing. No fold thickening, mass, ulcer or stricture is seen. FLUOROSCOPY TIME: 0.5 minutes DOSE AREA PRODUCT: 5 lala per centimeter squared. 19 fluoroscopic images. FL/FL upper GI series IMPRESSION: Small sliding-type hiatal hernia and mild gastroesophageal reflux.
== END 2021-03-15 08:26 | disposition home or self-care (01) ==
LOC: HO.US 08:25
PROVIDERS: Visit Provider Surgery
DX: Z01.818 Encounter for other preprocedural examination (principal); K21.9 Gastro-esophageal reflux disease without esophagitis; E66.01 Morbid (severe) obesity due to excess calories; N93.9 Abnormal uterine and vaginal bleeding, unspecified
CPT/HCPCS: 74240; 76705; 76830; 76856; 76981

== ENCOUNTER 2021-03-22 18:13 | Emergency (ER) | payer BC, SELFPAY ==
--- NOTE | 2021-03-22 19:41 | PC.NURSE ---
PT NOT PRESENT IN WR.
== END 2021-03-22 19:39 | disposition left against medical advice (07) ==
PROVIDERS: Emergency Provider Emergency Medicine
DX: R10.9 Unspecified abdominal pain (principal); R11.0 Nausea

== ENCOUNTER → 2021-03-27 08:01 | Outpatient (BNVA) | payer BC, SELFPAY | PROVIDERS: Referring Provider Surgery; Visit Provider Dietitian, Registered | DX: E66.01 Morbid (severe) obesity due to excess calories (principal) | CPT/HCPCS: 97803 ==

== ENCOUNTER 2021-03-27 13:59 | Emergency (ER) | payer BC, SELFPAY ==
--- NOTE | ~2021-03-27 | CT_ITS ---
EXAMINATION: CT ABDOMEN AND PELVIS WITH CONTRAST CLINICAL INFORMATION: Abdominal pain. COMPARISON: CT abdomen/pelvis dated from 11/08/2019. TECHNIQUE: Multidetector volumetric images were obtained from the superior aspect of the liver through the pubic symphysis following administration 85 mL of Omnipaque 350 intravenous contrast. Sagittal and coronal reformatted images were obtained on the technologist's workstation. Oral contrast: No This CT examination was performed using dose optimization techniques as appropriate, variously including the following: *Automated exposure control *Adjustment of mA and/or kV according to patient size (this includes techniques or standardized protocols for targeted exams where dose is matched to indication/reason for exam; i.e. extremities or head) *Use of iterative reconstruction technique DLP: 831 mGy-cm FINDINGS: LUNG BASES: The visualized lung bases are unremarkable. LIVER, GALLBLADDER, AND BILIARY TREE: The liver is normal in size, shape, and attenuation. No focal hepatic lesion or biliary ductal dilatation is present. The gallbladder is unremarkable with no evidence of radiopaque gallstones, gallbladder wall thickening, or obvious pericholecystic inflammatory changes. PANCREAS: Unremarkable. SPLEEN: Unremarkable. ADRENAL GLANDS: Unremarkable. KIDNEYS AND URETERS: The kidneys are normal in size, shape, and attenuation. No hydronephrosis, hydroureter, or calculi seen. No perinephric stranding. BLADDER: Decompressed and therefore suboptimally assessed. No perivesical fat stranding. GASTROINTESTINAL TRACT: The stomach and the small bowel are nondilated. Normal appendix. No pericolic inflammatory changes. No bowel obstruction. ABDOMINAL WALL: No significant hernia is appreciated. LYMPH NODES: A few prominent periportal and mesenteric lymph nodes are unchanged since 2019 and of uncertain significance. No lymphadenopathy by size criteria. VASCULAR: Unremarkable. PELVIC VISCERA: Functional follicles in both ovaries. Trace amount of free fluid, which is likely physiologic. OSSEOUS STRUCTURES: No acute or aggressive osseous findings. CT/CT abdomen pelvis w con IMPRESSION: No acute abnormalities to explain the patient's symptoms.
[2021-03-27 14:14] VITALS: PULSE 76; RESP 18; TEMP 36.8; O2SAT 100; BMI 40.7
[2021-03-27 14:43] LABS: MANUAL DIFF FLAG NO
[2021-03-27 14:46] LABS: Basophils Percent Auto 0.2 % (0-2); Eosinophils Absolute Auto 0.1 X10*3/uL (0.0-0.4); Eosinophils Percent Auto 0.6 % (0-4); Hematocrit 39.4 % (37-47); Hemoglobin 13.5 g/dl (12.0-16.0); Imm Gran Abs Auto 0.02 X10*3/uL (0.00-0.03); Imm Gran Pct Auto 0.2 % (0.0-0.4); Lymphocytes Absolute Auto 2.2 X10*3/uL (1.2-4.9); Lymphocytes Percent Auto 27.2 % (20-40); Mean Corpuscular HGB Conc 34.3 g/dl (31.0-35.0); Mean Corpuscular Hemoglobin 29.9 pg (27.0-33.0); Mean Corpuscular Volume 87.2 fL (80-98); Monocytes Absolute Auto 0.3 X10*3/uL (0.1-1.2); Neutrophils Absolute Auto 5.5 X10*3/uL (2.0-8.3); Neutrophils Percent Auto 67.8 % (45-73); Platelet Count 270 X10*3/uL (160-400); Red Blood Count 4.52 X10*6/uL (4.20-5.50); Red Cell Distribution Width 14.4 % (11.0-16.0); White Blood Count 8.2 X10*3/uL (4.8-10.8)
[2021-03-27 15:07] LABS: Alanine Aminotransferase 115 U/L (0-31); Albumin Level 4.1 g/dL (3.5-5.0); Alkaline Phosphatase 67 U/L (39-117); Anion Gap 10 (12-20); Aspartate Amino Transferase 53 U/L (5-31); Bilirubin Total 0.2 mg/dL (0.0-1.0); Blood Urea Nitrogen 10 mg/dL (9-16); Calcium 9.4 mg/dL (8.4-10.2); Carbon Dioxide 23 mmol/L (22-29); Chloride 109 mmol/L (96-108); Creatinine Clr Calc Pharmacy 114.5; Estimated Glomerular Filt Rate > 60; Glucose Random 108 mg/dL (60-115); Potassium 4.2 mmol/L (3.3-5.1); Sodium 138 mmol/L (135-145); Total Protein 7.4 g/dL (6.5-8.0)
--- NOTE | 2021-03-27 18:31 | ED.ABDPAIN ---
HPI - Abdominal Pain General Chief Complaint: Abdominal Pain Stated Complaint: abd pain Time Seen by Provider: 03/27/21 18:30 History of Present Illness HPI narrative: Patient is 25 years old presented with having abdominal pain. The pain initially was epigastric now moved to left lower quadrant. Patient claims she might have eaten a meat loaf that was undercooked. Complaining that was strings in sided she was worried that it was parasites. Patient denies any nausea vomiting. No diarrhea. Patient from home. No abdominal surgery in the past. Was at urgent care center for further evaluation in emergency department no history of abdominal surgery in the past. No pain on urination. Patient has irregular periods she has polycystic ovary disease and endometriosis. Related Data Home Medications Medication Instructions Recorded Confirmed acetaminophen-pamabrom 500 mg-25 1 tab PO Q6H PRN 02/01/21 02/09/21 mg tablet (Midol) ibuprofen 400 mg tablet 400 mg PO TID 02/26/21 Previous Rx's Medication Instructions Recorded famotidine 20 mg tablet (Pepcid) 20 mg PO DAILY PRN #30 tab 11/16/20 L norgest/E estradiol-E estrad 1 tab PO DAILY 84 Days #84 ea 01/17/21 0.15 mg-30 mcg (84)/10 mcg(7) tabs,3mos (Seasonique) cholecalciferol (vitamin D3) 125 125 mcg PO DAILY #30 cap 03/07/21 mcg (5,000 unit) capsule pantoprazole 40 mg tablet,delayed 40 mg PO DAILY #14 tab 03/27/21 release (Protonix) Allergies Allergy/AdvReac Type Severity Reaction Status Date / Time quetiapine [From SEROQUEL] Allergy Severe ANAPHYLAXIS Verified 03/27/21 14:13 oxycodone [From PERCOCET] AdvReac Unknown UNKNOWN Verified 03/27/21 14:13 percocet Allergy Intermediate sweating, Uncoded 03/27/21 14:13 rapid heart beat Review of Systems Review of Systems No fever no chills no chest pain Yes all other systems are reviewed and are negative Physical Exam Vital Signs: Vital Signs: Last Vital Signs Temp 98.1 F 03/27/21 20:00 Pulse 79 03/27/21 20:00 Resp 18 03/27/21 20:00 BP 123/78 03/27/21 20:00 Pulse Ox 100 03/27/21 20:00 Body Mass Index 40.7 Appearance: Alert. Oriented X3. No acute distress. Eyes: Pupils equal, round and reactive to light. ENT: Pharynx normal. Neck: Normal inspection. Neck supple. No lymph nodes noted. No crepitus CVS: Normal heart rate and rhythm. Pulses normal. Normal S1 and S2 Respiratory: No respiratory distress. Breath sounds normal. No Wheezing. No rales Abdomen: Soft and nontender. No rigidity. No distention. good BS x4 Skin: Skin warm and dry. Normal skin color. Normal skin turgor. Extremities: No lower extremity edema. Neurovascular intact to all extremities. No Lacerations. No Rash Neuro: Oriented X 3. No motor deficit. No sensory deficit. Moving all extermities. No slurred speech MDM - Abdominal Pain MDM Narrative Medical decision making narrative: CT scan showed no acute abscess perforation. No appendicitis. No diverticulitis. Will discharge patient home. Question gastritis. Will start patient on a PPI. Close follow-up on an outpatient basis. test is negative unlikely be ectopic. Urine negative for infection. stable condition with discharge home Lab Data Result diagrams: 03/27/21 14:35 03/27/21 14:35 Labs: Lab Results 03/27/21 03/27/21 03/27/21 Range/Units 14:35 14:35 18:42 WBC 8.2 (4.8-10.8) X10*3/uL RBC 4.52 (4.20-5.50) X10*6/uL Hgb 13.5 (12.0-16.0) g/dl Hct 39.4 (37-47) % MCV 87.2 (80-98) fL MCH 29.9 (27.0-33.0) pg MCHC 34.3 (31.0-35.0) g/dl RDW 14.4 (11.0-16.0) % Plt Count 270 (160-400) X10*3/uL MPV 11.0 (9.4-12.3) fL Immature Gran % (Auto) 0.2 (0.0-0.4) % Neut % (Auto) 67.8 (45-73) % Lymph % (Auto) 27.2 (20-40) % [place] % (Auto) 4.0 (2-11) % Eos % (Auto) 0.6 (0-4) % Baso % (Auto) 0.2 (0-2) % Lymph # (Auto) 2.2 (1.2-4.9) X10*3/uL [place] # (Auto) 0.3 (0.1-1.2) X10*3/uL Eos # (Auto) 0.1 (0.0-0.4) X10*3/uL Baso # (Auto) 0.0 (0.0-0.2) X10*3/uL Abs Immat Gran (auto) 0.02 (0.00-0.03) X10*3/uL Absolute Neuts (auto) 5.5 (2.0-8.3) X10*3/uL Absolute Nucleated RBC 0.000 (0.0-0.012) X10*3/uL Nucleated RBC % (auto) 0.0 (0.0-0.2) /100WBC Sodium 138 (135-145) mmol/L Potassium 4.2 (3.3-5.1) mmol/L Chloride 109 H (96-108) mmol/L Carbon Dioxide 23 (22-29) mmol/L Anion Gap 10 L (12-20) BUN 10 (9-16) mg/dL Creatinine 0.86 (0.5-1.4) mg/dL Estim Creat Clear Calc 114.5 Estimated GFR > 60 Random Glucose 108 (60-115) mg/dL Calcium 9.4 (8.4-10.2) mg/dL Total Bilirubin 0.2 (0.0-1.0) mg/dL AST 53 H (5-31) U/L ALT 115 H (0-31) U/L Alkaline Phosphatase 67 (39-117) U/L Total Protein 7.4 (6.5-8.0) g/dL Albumin 4.1 (3.5-5.0) g/dL Urine Color YELLOW Urine Appearance CLEAR Urine pH 6.5 (5.0-8.0) Ur Specific [place] 1.020 (1.005-1.025) Urine Protein NEG (NEG-TRACE) MG/DL Urine Glucose (UA) NEG (NEG) MG/DL Urine Ketones 5 (NEG) MG/DL Urine Blood 3+ H (NEG) Urine Nitrite NEG (NEG) Ur Leukocyte Esterase NEG (NEG) Urine RBC 5-9 H (0) /HPF Urine WBC 0 (0-4) /HPF Ur Squamous Epith Cells 1+ /LPF Urine Bacteria TRACE /LPF Urine Mucus 1+ /LPF Urine Test (NEGATIVE) 03/27/21 Range/Units 18:42 WBC (4.8-10.8) X10*3/uL RBC (4.20-5.50) X10*6/uL Hgb (12.0-16.0) g/dl Hct (37-47) % MCV (80-98) fL MCH (27.0-33.0) pg MCHC (31.0-35.0) g/dl RDW (11.0-16.0) % Plt Count (160-400) X10*3/uL MPV (9.4-12.3) fL Immature Gran % (Auto) (0.0-0.4) % Neut % (Auto) (45-73) % Lymph % (Auto) (20-40) % [place] % (Auto) (2-11) % Eos % (Auto) (0-4) % Baso % (Auto) (0-2) % Lymph # (Auto) (1.2-4.9) X10*3/uL [place] # (Auto) (0.1-1.2) X10*3/uL Eos # (Auto) (0.0-0.4) X10*3/uL Baso # (Auto) (0.0-0.2) X10*3/uL Abs Immat Gran (auto) (0.00-0.03) X10*3/uL Absolute Neuts (auto) (2.0-8.3) X10*3/uL Absolute Nucleated RBC (0.0-0.012) X10*3/uL Nucleated RBC % (auto) (0.0-0.2) /100WBC Sodium (135-145) mmol/L Potassium (3.3-5.1) mmol/L Chloride (96-108) mmol/L Carbon Dioxide (22-29) mmol/L Anion Gap (12-20) BUN (9-16) mg/dL Creatinine (0.5-1.4) mg/dL Estim Creat Clear Calc Estimated GFR Random Glucose (60-115) mg/dL Calcium (8.4-10.2) mg/dL Total Bilirubin (0.0-1.0) mg/dL AST (5-31) U/L ALT (0-31) U/L Alkaline Phosphatase (39-117) U/L Total Protein (6.5-8.0) g/dL Albumin (3.5-5.0) g/dL Urine Color Urine Appearance Urine pH (5.0-8.0) Ur Specific [place] (1.005-1.025) Urine Protein (NEG-TRACE) MG/DL Urine Glucose (UA) (NEG) MG/DL Urine Ketones (NEG) MG/DL Urine Blood (NEG) Urine Nitrite (NEG) Ur Leukocyte Esterase (NEG) Urine RBC (0) /HPF Urine WBC (0-4) /HPF Ur Squamous Epith Cells /LPF Urine Bacteria /LPF Urine Mucus /LPF Urine Test NEGATIVE (NEGATIVE) Discharge Plan Discharge Clinical Impression: Abdominal pain Patient Disposition: Home, Self-Care Instructions: Abdominal Pain (ED) Additional Instructions: Please hold the Pepcid(Famotidine). Start taking the Protonix. Prescriptions: New pantoprazole [Protonix] 40 mg tablet,delayed release (DR/EC) 40 mg PO DAILY Qty: 14 RF: 0 No Action famotidine [Pepcid] 20 mg tablet 20 mg PO DAILY PRN (Reason: abdominal discomfort) Qty: 30 RF: 0 L norgest/e.estradiol-e.estrad [Seasonique] 0.15 mg-30 mcg (84)/10 mcg (7) tablets,dose pack,3 month 1 tab PO DAILY 84 Days Qty: 84 RF: 0 Midol 500-25 mg tablet 1 tab PO Q6H PRNRF: 0 cholecalciferol (vitamin D3) 125 mcg (5,000 unit) capsule 125 mcg PO DAILY Qty: 30 RF: 2 ibuprofen 400 mg tablet 400 mg PO TID RF: 0 Referrals: Physician,None [Primary Care Provider] - 2 days [facility] Past Medical History Attestation statement: The following information was validated with the patient. Medical History Anxiety Endometriosis GERD (gastroesophageal reflux disease) Morbid obesity No known health problems PCOS (polycystic ovarian syndrome) Surgical History Hx of wisdom tooth extraction Family History Family History Mother Anemia Asthma Sister Anemia Maternal Grandmother Stroke Asthma Family/Other Heart attack Brother Asthma Maternal Aunt Asthma Paternal Grandfather Diabetes Paternal Grandmother Dementia Father No problems noted. Social History Social History Alcohol intake: former Patient Tobacco Use Status: Never used Tobacco
[2021-03-27 18:37] VITALS: BP 117/68; PULSE 74; RESP 14; TEMP 36.3; O2SAT 100
[2021-03-27 18:51] LABS: Appearance Urine CLEAR; Color Urine YELLOW; Glucose Urine UA NEG (NEG); Leukocyte Esterase Urine NEG (NEG); Nitrite Urine NEG (NEG); PH 6.5 (5.0-8.0); UACC Culture Trigger NO; Urine Blood 3+ (NEG); Urine Ketones 5 MG/DL (NEG); Urine Protein NEG (NEG-TRACE)
[2021-03-27 18:56] LABS: Mucus Urine 1+ /LPF; Squamous Epithelial Cell Urine 1+ /LPF
[2021-03-27 18:57] LABS: Bacteria Urine TRACE /LPF; WBC Urine 0 /HPF (0-4)
[2021-03-27 19:14] LABS: UPreg QC Valid YES; Urine Pregnancy NEGATIVE (NEGATIVE)
[2021-03-27] MEDS: iohexoL 350 MG/ML 100 ML INFUS..BTL IV (19:40)
[2021-03-27 20:00] VITALS: BP 123/78; PULSE 79; RESP 18; TEMP 36.7; O2SAT 100
== END 2021-03-27 21:01 | disposition home or self-care (01) ==
PROVIDERS: Internal Medicine; Emergency Provider Emergency Medicine Emergency Medical Services
DX: R10.32 Left lower quadrant pain (principal); N92.6 Irregular menstruation, unspecified; Z79.899 Other long term (current) drug therapy
CPT/HCPCS: 36415; 74177; 80053; 81001; 81025; 85025; 99284; Q9967

== ENCOUNTER → 2021-03-29 08:10 | Outpatient (BNVA) | payer BC, SELFPAY | PROVIDERS: Visit Provider Surgery ==

== ENCOUNTER → 2021-04-03 11:30 | Outpatient (BNVA) | payer BC, SELFPAY | PROVIDERS: Visit Provider Obstetrics & Gynecology ==

== ENCOUNTER → 2021-04-09 07:41 | Outpatient (BNVA) | payer BC, SELFPAY | PROVIDERS: Visit Provider Surgery ==

== ENCOUNTER 2021-05-01 14:09 | Outpatient (REF) | payer BC, SELFPAY ==
[2021-05-02 08:45] LABS: BV Int Neg Control Negative (Negative); BV Int Pos Control Positive (Positive)
[2021-05-02 09:41] LABS: CT PCR NOT DETECTED (Not Detect.); NG PCR NOT DETECTED (Not Detect.)
== END 2021-05-01 14:10 | disposition home or self-care (01) ==
LOC: HO.LAB 14:09
PROVIDERS: Visit Provider Obstetrics & Gynecology
DX: Z11.3 Encounter for screening for infections with a predominantly sexual mode of transmission (principal); R31.29 Other microscopic hematuria; N93.9 Abnormal uterine and vaginal bleeding, unspecified
CPT/HCPCS: 87480; 87491; 87510; 87591; 87660

== ENCOUNTER → 2021-05-08 08:02 | Outpatient (BNVA) | payer BC, SELFPAY | PROVIDERS: Referring Provider Surgery; Visit Provider Dietitian, Registered ==

== ENCOUNTER 2021-05-09 07:27 | Emergency (ER) | payer BC, SELFPAY ==
[2021-05-09 07:33] VITALS: BP 137/75; PULSE 85; RESP 18; TEMP 36.7; O2SAT 99; BMI 38.0
--- NOTE | 2021-05-09 08:08 | ED.GENADULT ---
HPI - General Adult General Chief complaint: General Medical Stated complaint: sore throat, headache, weakness Time Seen by Provider: 05/09/21 08:08 Source: patient Mode of arrival: ambulatory Limitations: no limitations History of Present Illness HPI narrative: sore throat, headache and tired for the second day. patient with laryngitis Onset (ago): day(s) Location: head Severity: mild Pain Consistency: constant Associated symptoms: headaches and malaise Related Data Home Medications Medication Instructions Recorded Confirmed acetaminophen-pamabrom 500 mg-25 1 tab PO Q6H PRN 02/01/21 04/11/21 mg tablet (Midol) ibuprofen 400 mg tablet 400 mg PO TID 02/26/21 04/11/21 Previous Rx's Medication Instructions Recorded famotidine 20 mg tablet (Pepcid) 20 mg PO DAILY PRN #30 tab 11/16/20 cholecalciferol (vitamin D3) 125 125 mcg PO DAILY #30 cap 03/07/21 mcg (5,000 unit) capsule pantoprazole 40 mg tablet,delayed 40 mg PO DAILY #14 tab 03/27/21 release (Protonix) mecobalamin (vitamin B12) 1,000 1,000 mcg SUBLINGUAL DAILY #30 tab 03/29/21 mcg disintegrating tablet,sublingual thiamine HCl (vitamin B1) 100 mg 100 mg PO DAILY #30 tab 03/29/21 tablet L norgest/E estradiol-E estrad 1 tab PO DAILY 84 Days #84 ea 04/03/21 0.15 mg-30 mcg (84)/10 mcg(7) tabs,3mos (Seasonique) Allergies Allergy/AdvReac Type Severity Reaction Status Date / Time quetiapine [From SEROQUEL] Allergy Severe ANAPHYLAXIS Verified 04/11/21 09:47 oxycodone [From PERCOCET] AdvReac Unknown UNKNOWN Verified 04/11/21 09:47 percocet Allergy Intermediate sweating, Uncoded 04/11/21 09:47 rapid heart beat Review of Systems Constitutional: Constitutional: Reports no additional constitutional complaints Eyes: Eyes: Reports no additional eye complaints ENT: Denies dizziness Cardiovascular: Cardiovascular: Reports no additional cardiovascular complaints Respiratory: Respiratory: Reports as per HPI Gastrointestinal: Gastrointestinal: Reports no additional gastrointestinal complaints Genitourinary: Genitourinary: Reports no additional female genitourinary complaints Musculoskeletal: Musculoskeletal: Reports no additional musculoskeletal complaints Integumentary/Breasts: Skin/Breast: Denies rash Neurologic: Reports system reviewed and no additional complaints, except as documented, Denies dizziness and Denies Sensory deficit (Neuro) Psychiatric: Psychiatric: Denies anxiety [facility] Past Medical History Medical History Anxiety Endometriosis GERD (gastroesophageal reflux disease) Morbid obesity No known health problems PCOS (polycystic ovarian syndrome) Surgical History Hx of wisdom tooth extraction Family History Family History Mother Anemia Asthma Sister Anemia Maternal Grandmother Stroke Asthma Family/Other Heart attack Brother Asthma Maternal Aunt Asthma Paternal Grandfather Diabetes Paternal Grandmother Dementia Father No problems noted. Social History Social History Alcohol intake: former Patient Tobacco Use Status: Never used Tobacco Advance Directives: No Advance Directives Information Provided: No Physical Exam Vital Signs: Vital Signs: Last Vital Signs Temp 98.9 F 05/09/21 11:00 Pulse 82 05/09/21 11:00 Resp 14 05/09/21 11:00 BP 112/74 05/09/21 11:00 Pulse Ox 99 05/09/21 11:00 Body Mass Index 38.0 Const: General: healthy appearing Nutritional Appearance: average body habitus Orientation/consciousness: oriented to person and patient oriented x3 Limitations: no limitations HENMT: Other: pharynx with erythema, swollen tonsills and exudate Head: Yes normal to inspection Ears: external ears normal General nose exam: Normal external nose present Throat: Yes posterior oropharynx normal Eyes: General: appearance normal, both eyes and all related structures Neck: Other: supple Neck: Yes normal visual inspection Chest: Chest palpation & inspection: normal inspection of the chest Resp: Auscultation: clear to auscultation bilaterally Cardio: Jugular venous distension: no JVD Rate: regular rate Rhythm: regular rhythm Heart sounds: S1 normal heart sound present and S2 normal heart sound present GI: Inspection: Yes normal to inspection Palpation (GI): Soft to palpation, nontender and No hepatosplenomegaly present Auscultation: normal bowel sounds : General: Yes no CVA tenderness Back/Spine/Pelvis: Back: no CVA tenderness Skin: General skin exam: no rashes or lesions noted Neuro: General: oriented to person and patient oriented x3 Cranial nerves: Yes CN's II-XII intact bilaterally Motor exam (neuro): 5/5 motor strength present throughout Sensory Exam: No Sensory deficit (Neuro) Extrem: General: Yes normal to inspection Psych: Appearance: grossly normal Course Reevaluation(s) Reevaluation #1: strep and mono negative, likely viral pharyngitis. Given decadron will dc home on tylenol and motrin Time: 11:56 Medical Decision Making Lab Data Labs: Lab Results 05/09/21 05/09/21 05/09/21 Range/Units 07:40 08:41 10:04 Monoscreen Negative (Negative) Influenza Type A (PCR) NEGATIVE (Negative) Influenza Type B (PCR) NEGATIVE (Negative) RSV RNA Qual (PCR) NEGATIVE (Negative) SARS-CoV-2 RNA (RT-PCR) NEGATIVE (Negative) S. pyogenes GrpA DAREK Negative (Negative) Discharge Plan Discharge Clinical Impression: Acute viral pharyngitis Patient Disposition: Home, Self-Care Instructions: Pharyngitis (ED) Prescriptions: No Action thiamine HCl (vitamin B1) 100 mg tablet 100 mg PO DAILY Qty: 30 RF: 2 mecobalamin (vitamin B12) 1,000 mcg tablet,disintegrating 1,000 mcg sublingual DAILY Qty: 30 RF: 2 famotidine [Pepcid] 20 mg tablet 20 mg PO DAILY PRN (Reason: abdominal discomfort) Qty: 30 RF: 0 pantoprazole [Protonix] 40 mg tablet,delayed release (DR/EC) 40 mg PO DAILY Qty: 14 RF: 0 Midol 500-25 mg tablet 1 tab PO Q6H PRN (Reason: Pain) RF: 0 cholecalciferol (vitamin D3) 125 mcg (5,000 unit) capsule 125 mcg PO DAILY Qty: 30 RF: 2 ibuprofen 400 mg tablet 400 mg PO TID RF: 0 L norgest/e.estradiol-e.estrad [Seasonique] 0.15 mg-30 mcg (84)/10 mcg (7) tablets,dose pack,3 month 1 tab PO DAILY 84 Days Qty: 84 RF: 0 Referrals: Physician,None [Primary Care Provider] - 1 week
[2021-05-09 08:21] LABS: Influenza A PCR NEGATIVE (Negative); Influenza B PCR NEGATIVE (Negative); Resp Syncy Virus RNA Qual PCR NEGATIVE (Negative); SARS COV2 PCR INHOUSE NEGATIVE (Negative)
[2021-05-09 09:13] VITALS: BP 115/69; PULSE 73; RESP 16; TEMP 36.1; O2SAT 100
[2021-05-09 09:24] LABS: Monotest Negative (Negative)
[2021-05-09] MEDS: dexAMETHasone sod phosphate 10 MG/ML VIAL IM (09:39)
[2021-05-09 10:22] LABS: Strep A Nucleic Acid Negative (Negative)
[2021-05-09 10:23] LABS: IDNOW Serial# 9DD0AD1C
[2021-05-09 11:00] VITALS: BP 112/74; PULSE 82; RESP 14; TEMP 37.2; O2SAT 99
--- NOTE | 2021-05-09 12:03 | PC.NURSE ---
patient a&ox3, vss, pt c/o headache, notified provider- awaiting orders, will continue to monitor
== END 2021-05-09 12:28 | disposition home or self-care (01) ==
PROVIDERS: Emergency Provider Emergency Medicine
DX: J02.8 Acute pharyngitis due to other specified organisms (principal); R51.9 Headache, unspecified; Z79.899 Other long term (current) drug therapy; Z20.822 Contact with and (suspected) exposure to COVID-19
CPT/HCPCS: 0241U; 36415; 86308; 87651; 96372; 99284; J1100

== ENCOUNTER → 2021-05-14 08:06 | Outpatient (BNVA) | payer BC, SELFPAY | PROVIDERS: Visit Provider Dietitian, Registered | DX: E66.9 Obesity, unspecified (principal) | CPT/HCPCS: 97803 ==

== ENCOUNTER → 2021-05-21 08:36 | Outpatient (BNVA) | payer BC, SELFPAY | PROVIDERS: Visit Provider Surgery ==

== ENCOUNTER → 2021-06-11 07:49 | Outpatient (BNVA) | payer BC, SELFPAY | PROVIDERS: Visit Provider Surgery ==

== ENCOUNTER → 2021-06-21 08:16 | Outpatient (BNVA) | payer BC, SELFPAY | PROVIDERS: Visit Provider Surgery ==

== ENCOUNTER → 2021-06-22 13:30 | Outpatient (BNVA) | payer BC, SELFPAY | PROVIDERS: Visit Provider Physician Assistant ==

== ENCOUNTER 2021-06-26 09:56 | Outpatient (REF) | payer BC, SELFPAY ==
[2021-06-26 10:32] LABS: MANUAL DIFF FLAG NO
[2021-06-26 11:02] LABS: Basophils Percent Auto 0.2 % (0-2); Eosinophils Percent Auto 0.2 % (0-4); Hematocrit 41.3 % (37.0-47.0); Hemoglobin 13.9 g/dl (12.0-16.0); Imm Gran Abs Auto 0.02 X10*3/uL (0.00-0.03); Imm Gran Pct Auto 0.2 % (0.0-0.4); Lymphocytes Absolute Auto 1.8 X10*3/uL (1.2-4.9); Lymphocytes Percent Auto 22.6 % (20-40); Mean Corpuscular HGB Conc 33.7 g/dl (31.0-35.0); Mean Corpuscular Hemoglobin 29.9 pg (27.0-33.0); Mean Corpuscular Volume 88.8 fL (80.0-98.0); Mean Platelet Volume 11.4 fL (9.4-12.3); Monocytes Absolute Auto 0.4 X10*3/uL (0.1-1.2); Monocytes Percent Auto 4.4 % (2-11); Neutrophils Absolute Auto 5.9 x10*3/uL (2.0-8.3); Neutrophils Percent Auto 72.4 % (45-73); Platelet Count 293 X10*3/uL (160-400); Red Blood Count 4.65 X10*6/uL (4.20-5.50); Red Cell Distribution Width 13.1 % (11.0-16.0); White Blood Count 8.1 X10*3/uL (4.8-10.8)
[2021-06-26 11:17] LABS: Prothrombin Time 11.7 SEC (9.9-13.0)
[2021-06-26 11:20] LABS: Partial Thromboplastin Time 32.3 SEC (24.1-38.0)
[2021-06-26 11:23] LABS: Alanine Aminotransferase 22 U/L (0-31); Albumin Level 4.5 g/dL (3.5-5.0); Alkaline Phosphatase 68 U/L (39-117); Anion Gap 16 (12-20); Aspartate Amino Transferase 18 U/L (5-31); Bilirubin Total 0.7 mg/dL (0.0-1.0); Blood Urea Nitrogen 16 mg/dL (9-16); C Reactive Protein 1.77 mg/dL (< or = 0.50); Calcium 10.4 mg/dL (8.4-10.2); Carbon Dioxide 24 mmol/L (22-29); Chloride 104 mmol/L (96-108); Cholesterol 179 mg/dL; Estimated Glomerular Filt Rate > 60; Glucose Random 83 mg/dL (60-115); HDL Cholesterol 54 mg/dL; LDL Cholesterol Calculated 114 mg/dl; Potassium 4.9 mmol/L (3.3-5.1); Sodium 139 mmol/L (135-145); Total Protein 8.2 g/dL (6.5-8.0); Triglycerides 57 mg/dL
[2021-06-26 11:35] LABS: Estimated Average Glucose 103 mg/dL; Hemoglobin A1c % 5.2 %
[2021-06-26 11:45] LABS: Insulin 9 uU/mL (2-29); TSH reflex Free T4 1.38 uIU/mL (0.32-4.0)
== END 2021-06-26 09:57 | disposition home or self-care (01) ==
LOC: HO.LAB 09:56
PROVIDERS: Absent Provider Obstetrics & Gynecology; Visit Provider Surgery
DX: E66.9 Obesity, unspecified (principal); Z68.37 Body mass index [BMI] 37.0-37.9, adult
CPT/HCPCS: 36415; 80053; 80061; 83036; 83525; 84443; 85025; 85610; 85730; 86140

== ENCOUNTER 2021-07-04 09:07 | Inpatient (IN) | payer BC, SELFPAY ==
[2021-06-28 11:23] VITALS: BMI 35.7
--- NOTE | 2021-06-30 22:32 | MHC.SHP ---
Pre-Procedural Eval Section A Date of Service: 06/30/21 The patient is an INPATIENT: Yes The History & Physical has been completed within 30 days and I have reviewed it.: No Section B Chief Complaint: obesity Relevant Family History (Specify if Yes): Yes Relevant Social History: None Present Medications: None Medical History: No relevant PMH History of Previous Operations: No relevant previous surgery Allergies: Allergies Allergy/AdvReac Type Severity Reaction Status Date / Time quetiapine [From SEROQUEL] Allergy Severe ANAPHYLAXIS Verified 06/28/21 11:01 oxycodone [From PERCOCET] AdvReac Unknown tachycardia, Verified 06/28/21 11:01 sweating Review of Systems Sugical H&P ROS: Negative: Constitution, Cardiovascular, Respiratory, Neurological, Psychiatric, Hem-Onc, Allergic/Immunologic, Gastrointestinal, Genitourinary, Musculoskeletal, Integumentary, Endocrine and Eyes/Ears/Nose/Throat Exam Surgical H&P Exam: Normal: HEENT, Normal: Heart, Normal: Lungs, Normal: Extremities, Normal: Abdomen, Normal: Skin and Normal: Neurological Plan Diagnosis/Plan: Unchanged I have reviewed the history and physical and performed a pertinent physical examination on my patient. No changes have occurred unless specified.
--- NOTE | 2021-07-03 10:35 | HO.ANESPROP2 ---
Documented by User: Fernanda Montoya NP 07/03/21 10:36 HPI - Anesthesia Eval Consult details Narrative: 25yo F for Gastrectomy Sleeve,EGD,poss diaphragmatic hernia,poss ventral hernnia,poss open PMFSH Active Problems Active Problems: All Active Problems (Updated 06/28/21 @ 11:28 by Bibiana Guerin RN) Iron deficiency anemia (Chronic) Menometrorrhagia (Acute) Pelvic pain (Acute) Pelvic cramping (Acute) Malpositioned IUD (Acute) Encounter for IUD removal (Acute) Hx of anorexia nervosa (Acute) Moderately severe recurrent major depression (Acute) Chronic post-traumatic stress disorder (PTSD) (Acute) Vitamin B1 deficiency (Acute) Vitamin D deficiency (Acute) Vitamin B12 deficiency (Acute) Gastritis (Acute) Binge eating disorder (Acute) Abdominal pain (Acute) Vitamin B1 deficiency (Acute) Vitamin B12 deficiency (Acute) Obesity (Acute) BMI 39.0-39.9,adult (Acute) Microscopic hematuria (Acute) Abnormal uterine bleeding (AUB) (Acute) Screen for STD (sexually transmitted disease) (Acute) BMI 37.0-37.9, adult (Acute) Anxiety (Acute) GERD (gastroesophageal reflux disease) (Acute) Morbid obesity (Acute) Past Medical History Medical History Anxiety Depression Endometriosis GERD (gastroesophageal reflux disease) History of anemia Migraines Morbid obesity No known health problems PCOS (polycystic ovarian syndrome) PTSD (post-traumatic stress disorder) Family History Family History Mother Anemia Asthma Sister Anemia Maternal Grandmother Stroke Asthma Family/Other Heart attack Brother Asthma Maternal Aunt Asthma Paternal Grandfather Diabetes Paternal Grandmother Dementia Father No problems noted. Surgical History Surgical History Hx of wisdom tooth extraction Social History Social History Are you a primary career development consultant to a significant other at home: No Do you presently have visiting nurse or other home services: No Alcohol intake: former Patient Tobacco Use Status: Never used Tobacco Use of substances other than those prescribed or required for medical reasons: Yes Substance Use Type: Marijuana Substance Use Type Other:: Edibles -daily stopped 06/21/21 Have you been hit, kicked, punched, or otherwise hurt by someone within the past year? If so, by whom?: No Are you DNR?: No Advance Directives: No Advance Directives Information Provided: Yes (Mailed with preop instructions) Advance Directives on File: No Recently lost weight without trying: Yes How much weight loss: 24-33 pounds Eating poorly because of decreased appetite: No Nutrition screen score: 5 Nutrition Risks: No Nutritional Risk Patient : No FDLMP: 06/15/21 : No Poor oral hygiene: No Meds Allergies Allergy/AdvReac Type Severity Reaction Status Date / Time quetiapine [From SEROQUEL] Allergy Severe ANAPHYLAXIS Verified 06/28/21 11:01 oxycodone [From PERCOCET] AdvReac Unknown tachycardia, Verified 06/28/21 11:01 sweating Home Medications Medication Instructions Recorded Confirmed Last Taken Type acetaminophen-pamabrom 500 mg-25 1 tab PO Q6H PRN 02/01/21 06/28/21 Unknown History mg tablet (Midol) ibuprofen 400 mg tablet 400 mg PO TID PRN 02/26/21 06/28/21 06/21/21 History Exam Exam Date and Time: July 03, 2021 1035 Height,Weight and Vital Signs: Height 5 ft 3.5 in Weight 92.986 kg Pertinent Lab Results Pertinent Lab Results: Laboratory Tests 06/26/21 10:24 Blood Type B Positive Antibody Screen NEGATIVE Laboratory Tests 06/26/21 06/26/21 10:31 10:31 WBC 8.1 Hgb 13.9 Hct 41.3 Plt Count 293 Sodium 139 Potassium 4.9 Chloride 104 Carbon Dioxide 24 BUN 16 Creatinine 1.01 Narrative Narrative: EKG 02/2021 Vent. Rate : 073 BPM ? ? Atrial Rate : 073 BPM ?? P-R Int : 140 ms? QRS Dur : 076 ms ? ? QT Int : 398 ms ? ? ? P-R-T Axes : -04 024 014 degrees ?? QTc Int : 438 ms ? Normal sinus rhythm Normal ECG When compared with ECG of 11-DEC-2020 11:31, No significant change was found Assessment and Plan Assessment Anesthesia Assessment: Chart Reviewed Documented by User: Dee Dee Villanueva MD 07/04/21 10:11 PMF Past Medical History Medical History Anxiety Depression Endometriosis GERD (gastroesophageal reflux disease) History of anemia Migraines Morbid obesity No known health problems PCOS (polycystic ovarian syndrome) PTSD (post-traumatic stress disorder) Family History Family History Mother Anemia Asthma Sister Anemia Maternal Grandmother Stroke Asthma Family/Other Heart attack Brother Asthma Maternal Aunt Asthma Paternal Grandfather Diabetes Paternal Grandmother Dementia Father No problems noted. Family history of problems with anesthesia: No Surgical History Surgical History Hx of wisdom tooth extraction History of Problems with Anesthesia: No Social History Social History Are you a primary career development consultant to a significant other at home: No Do you presently have visiting nurse or other home services: No Alcohol intake: former Patient Tobacco Use Status: Never used Tobacco Use of substances other than those prescribed or required for medical reasons: Yes Substance Use Type: Marijuana Substance Use Type Other:: Edibles -daily stopped 06/21/21 Have you been hit, kicked, punched, or otherwise hurt by someone within the past year? If so, by whom?: No Are you DNR?: No Advance Directives: No Advance Directives Information Provided: Yes (Mailed with preop instructions) Advance Directives on File: No Recently lost weight without trying: Yes How much weight loss: 24-33 pounds Eating poorly because of decreased appetite: No Nutrition screen score: 5 Nutrition Risks: No Nutritional Risk Patient : No FDLMP: 06/15/21 : No Poor oral hygiene: No Meds Allergies Allergy/AdvReac Type Severity Reaction Status Date / Time quetiapine [From SEROQUEL] Allergy Severe ANAPHYLAXIS Verified 06/28/21 11:01 oxycodone [From PERCOCET] AdvReac Unknown tachycardia, Verified 06/28/21 11:01 sweating Home Medications Medication Instructions Recorded Confirmed Last Taken Type acetaminophen-pamabrom 500 mg-25 1 tab PO Q6H PRN 02/01/21 06/28/21 Unknown History mg tablet (Midol) ibuprofen 400 mg tablet 400 mg PO TID PRN 02/26/21 06/28/21 06/21/21 History Exam Height,Weight and Vital Signs: Height 5 ft 3.5 in Weight 92.986 kg Vital Signs Temp Pulse Resp BP Pulse Ox 07/04/21 09:09 98.7 F 105 H 16 118/79 97 Pertinent Lab Results Pertinent Lab Results: Laboratory Tests 06/26/21 10:24 Blood Type B Positive Antibody Screen NEGATIVE Laboratory Tests 06/26/21 06/26/21 10:31 10:31 WBC 8.1 Hgb 13.9 Hct 41.3 Plt Count 293 Sodium 139 Potassium 4.9 Chloride 104 Carbon Dioxide 24 BUN 16 Creatinine 1.01 Lab Results 06/26/21 07/03/21 07/04/21 Range/Units 10:24 12:20 08:39 Urine Test NEGATIVE (NEGATIVE) COVID-19 ([facility]) Negative (Negative) COVID-19 Clin Com See Note Blood Type B Positive Antibody Screen NEGATIVE Airway Mallampati Class: II TM Dist: >3cm Neck ROM: Full Loose/Missing/Broken Teeth: Yes (Missing wisdom teeth) Heart: RRR Lungs: CTAB Assessment and Plan Assessment Anesthesia Assessment: Anesthesia Plan Discussed Final Anesthetic Review Family History of Problems with Anesthesia: No History of Problems with Anesthesia: No NPO: Yes ASA Class: III Final Preanesthetic Review: No Changes in Pt Med Stat, Meds/Allgs Chart Reviewed, Consent Obtained/Reviewed and Anes Risks/Benef Reviewed Patient Risk: Intermediate Procedure Risk: Intermediate Assessment/Block/Sedation in SS: Assess/Block/Sedation-SS Anesthetic Plan Anesthetic Plan: GA Disposition: Standard PACU and Inp. Admit - Standard Bed
[2021-07-03 12:55] LABS: COVID-19 Test Negative (Negative)
[2021-07-04] VITALS (20 sets, daily range): BP systolic 118–145; BP diastolic 68–90; PULSE 83–106; RESP 16–20; TEMP 36.1–37.1; O2SAT 91–99
[2021-07-04 09:10] LABS: UPreg QC Valid YES; Urine Pregnancy NEGATIVE (NEGATIVE)
[2021-07-04] MEDS: Lactated Ringers 1,000 ML 999 ML IV (09:16)
[2021-07-04] MEDS: Lactated Ringers 1,000 ML 100 ML IVCONT (09:20)
--- NOTE | 2021-07-04 10:50 | PM.PNGS ---
Subjective Subjective Date of Service: 07/05/21 Interval history: Patient has mild incisional pain, but was able to ambulate and use the incentive spirometer. She is tolerating phase 1 bariatric diet Physical Exam Vital Signs: Vital Signs: Last Vital Signs Temp 98.7 F 07/04/21 09:09 Pulse 105 H 07/04/21 09:09 Resp 16 07/04/21 09:09 BP 118/79 07/04/21 09:09 Pulse Ox 97 07/04/21 09:09 BMI result Body Mass Index 35.7 GI: Inspection: Yes normal to inspection, Yes incision (clean, dry and intact) and Yes obesity Extrem: Right lower extremity: normal to inspection (no calf tenderness) Left lower extremity: normal to inspection (no calf tenderness) Objective Data Active Medications Fentanyl (Fentanyl Citrate/Pf 100 Mcg/2 Ml Vial) 25 mcg IVPUSH Q5M PRN; Protocol PRN Reason: Pain, Moderate (Pain Scale 4-6 Hydromorphone HCl (Hydromorphone Hcl 0.5 Mg/0.5 Ml Syringe) 0.25 mg IVPUSH Q5M PRN; Protocol PRN Reason: Pain, Severe (Pain Scale 7-10) Lactated Ringer's (Lr) 1,000 mls @ 100 mls/hr IVCONT .Q10H OPAL Last Admin: 07/04/21 09:20 Dose: 100 mls/hr Documented by: MICHAEL Promethazine HCl 6.25 mg/ (Sodium Chloride) 50.25 mls @ 201 mls/hr IV ONCE PRN PRN Reason: Nausea and Vomiting Ondansetron HCl (Ondansetron Hcl 4 Mg/2 Ml Vial) 4 mg IVPUSH ONCE PRN PRN Reason: Nausea and Vomiting Labs CBC & Chem 7: 07/05/21 04:10 07/05/21 04:10 Labs: Laboratory Results - last 24 hr 07/03/21 07/04/21 12:20 08:39 Urine Test NEGATIVE COVID-19 ([facility]) Negative COVID-19 Clin Com See Note Procedures Date of Service Date of Service: 07/05/21 Progress Note: A&P Assessment and plan (1) Obesity: Status: Acute Assessment and Plan: s/p laparoscopic sleeve gastrectomy, lysis of adhesions repair of diaphragmatic hernia, and gastropexy Doing well Check am labs. If OK, will discharge home? (2) BMI 37.0-37.9, adult: Status: Acute (3) GERD (gastroesophageal reflux disease): Status: Acute (4) Anxiety: Status: Acute Fall Risk Details Current Medications: Current Medications Fentanyl (Fentanyl Citrate/Pf 100 Mcg/2 Ml Vial) 25 mcg IVPUSH Q5M PRN; Protocol PRN Reason: Pain, Moderate (Pain Scale 4-6 Hydromorphone HCl (Hydromorphone Hcl 0.5 Mg/0.5 Ml Syringe) 0.25 mg IVPUSH Q5M PRN; Protocol PRN Reason: Pain, Severe (Pain Scale 7-10) Lactated Ringer's (Lr) 1,000 mls @ 100 mls/hr IVCONT .Q10H OPAL Last Admin: 07/04/21 09:20 Dose: 100 mls/hr Documented by: Promethazine HCl 6.25 mg/ (Sodium Chloride) 50.25 mls @ 201 mls/hr IV ONCE PRN PRN Reason: Nausea and Vomiting Ondansetron HCl (Ondansetron Hcl 4 Mg/2 Ml Vial) 4 mg IVPUSH ONCE PRN PRN Reason: Nausea and Vomiting Time Spent With Patient Time: Total time spent is greater than 50% in coordination of care (as documented) at patient's floor/unit and/or counseling patient: Time with patient: less than 15 minutes Quality Stroke Does the patient have a stroke diagnosis?: No VTE Prior VTE?: No VTE Risk Level:: Surgical - moderate VTE Device Contraindication: N/A - Device Ordered VTE Drug Contraindication: Treatment Not Indicated
--- NOTE | 2021-07-04 10:56 | P.BOP_ITS ---
Brief Operative Note Date of Service: 07/04/21 Pre-op diagnosis: Severe obesity and comorbidities (see below) Post-op diagnosis: same Procedure: INITIAL PATIENT BMI ON PRESENTATION AT OUR OFFICE: 41.7 Kg/m2 LAST BMI BEFORE SURGERY: 37.2 kg/m2 COMORBIDITIES: GERD, PCOS, liver steatosis, anxiety ?The patient presented to the Weight Management Program with significant obesity that was negatively impacting the patient's comorbidities as listed above.? The program is a phased program with a special focus on preoperative medical weight management to promote substantial weight loss and prepare the patients for the second phase of the program: bariatric surgery. The patient participated in an intensive weekly lifestyle ?intervention and exercise program during which the patient ?has lost between the initial office visit and the last preoperative visit 29.4lbs, or 12.4% of initial actual body weight. It was deemed appropriate for the patient to now have bariatric surgery. In light of the current Covid-19 pandemic and the well documented strong association of obesity and increased risk of worse outcomes if infected with Covid-19 (REFERENCES: https://pubmed.ncbi.nlm.nih.gov/30920691/ ,? https://pubmed .ncbi.nlm.nih.gov/76572197/ ), any delay in undergoing bariatric surgery may lead to the patient's worsening health condition and increased?risk of more severe Covid-19 disease if infected. In addition a recent?study from [facility] published in [employer] on 06/11/2021 ([email or web address]) found that, among patients with obesity, substantial weight loss achieved with surgery was associated with improved outcomes of COVID-19 infection. The findings suggest that obesity can be a modifiable risk factor for the severity of COVID-19 infection. In addition, the patient met the BMI-criteria for bariatric surgery based on the BMI on initial presentation. The patient should not be penalized for achieving s uch weight loss because ?it is not sustainable long-term without surgical intervention and it was achieved in preparation for bariatric surgery ?under my direction and based on my published research ( [email or web address]).[email or web address] and? https://www.soard.org/article/V0387-7250(11)16295-X/pdf ) ?that a 10% preoperative weight loss improves long-term weight loss after surgery and reduces perioperative complications.? Insurance carriers such as [facility] have endorsed my recommendations ?and have included in their policies criteria to include a 10% preoperative weight loss requirement. PROCEDURE: Esophago-gastroscopy, laparoscopic sleeve gastrectomy and laparoscopic gastropexy INDICATIONS: This is a 25 year-old female who was electively scheduled for laparoscopic, possibly open sleeve gastrectomy. The risks and complications of the procedure were discussed with the patient in advance, particularly the possibility of ; pulmonary embolism; staple line leak; bleeding; GERD; cardiac, pulmonary, or renal complications; as well as long-term problems such as insufficient weight loss, vitamin deficiency, strictures, or ulcers. The patient understood all the risks, and was in agreement to proceed with surgery. DESCRIPTION OF PROCEDURE: After informed consent was obtained from the patient, the patient was given preoperative antibiotics, and was transferred to the operating room. After successful induction of general anesthesia, pneumatic compression devices were placed on both lower extremities. An upper endoscopy was performed next. The oropharynx and esophagus appeared to be within normal limits. There was no diaphragmatic hernia present. The stomach was entered. Then after all fluid and air were suctioned and the stomach was fu lly decompressed, the scope was withdrawn and secured in the mid esophagus. The patient was then prepped and draped in the usual sterile manner, and abdominal access was established at the right upper quadrant with the Leda technique. A 12 mm blunt port was inserted, and the abdomen was insufflated with CO2 to a pressure of 15 mmHg. Under direct visualization, additional ports were placed, specifically two 5 mm Versi-step ports to the left upper quadrant, and a 5 mm Versi-Step port to the right upper quadrant. 1% lidocaine plain was used to infiltrate all port sites as well as all fascia defects. Following that, the patient was placed in a steep reverse Trendelenburg position. An additional 5 mm port was placed to the right flank for the Mediflex retractor that was used to retract the left lobe of the liver. The gastro-esophageal fat pad was opened with the ultrasonic device (Thsteffenerbeat, Olympus) and the anterior esophagus and hiatus were exposed. The angle of His was opened with the ultrasonic device the fundus of the stomach from any diaphragmatic and splenic attachments. I then opened the gastrocolic ligament between the transverse colon and the greater curvature of the stomach with the ultrasonic device to enter the lesser sac and facilitate the ligation of the short gastric vessels. I started at a mid-point along the greater curvature and using the Thunderbeat, all short gastric vessels were divided all the way to the angle of His until the left crystal was completely dissected at its entirety. I then divided the gastro-colic ligament distally to a distance of about 3-4 cm proximal to the esophagus. The stomach was then divided transversely with one Endo COLLIN-45 purple, one COLLIN- 45 orange load and three COLLIN-60 articulating orange loads using the AEON stapler and loads. Every effort was made that the gastric sleeve had a tubular shape and an even caliber throughout. Once the sleeve resection was completed, the staple line of the gastric sleeve was reinforced with Hemoclips. The resected stomach was retrieved without difficulty from the Leda port. A gastropexy was then performed in order to prevent postoperative GERD and partial gastric volvulus. Several interrupted 2.0 Surgidac sutures were placed between the sleeve's staple line and the previously divided greater omentum and gastro-colic ligament using the Endo-Stitch device. ?An upper endoscopy was performed. There was no narrowing at the GE junction. The scope was easily advanced all the way to the pylorus which was clearly visualized. There was no narrowing anywhere and the sleeve's caliber was even throughout. The sleeve's staple line was inspected and there was no evidence of ischemia, bleeding or dehiscence. At that point the gastroscope was withdrawn from the patient?s mouth while we were decompressing the bowel and the stomach from any remaining air. I looked into the lesser sac to see how the sleeve was situating and it was situating well. There was no bleeding from the staple line, spleen, or short gastric vessels. The Mediflex retractor was removed, and the undersurface of the liver was inspected and there was no bleeding. The patient was placed in supine position. I closed the fascial defect of the 12 mm port site with a figure of eight #1 Polysorb suture. Then 100 cc 0.25 % Marcaine plain with 10 mg of Dexamethasone were used to infiltrate the fascial closure as well as all skin incisions. At this point, the abdomen was deflated, all ports were removed under direct vision, and no bleeding was noted from any of the port sites. The skin incisions were irrigated with saline and were closed with 4-0 absorbable monofilament sutures. Steri-Strips and OpSites were used to cover all incisions. The patient was extubated and was transferred in stable condition to the recovery room for further care. I was present and performed all shannon parts of the procedure. Mr Snow was the certified surgical tech/first assistant. There were no residents to assist with this case. Paramjit Veras MD, PhD, FACS ReplyForward Surgeon: Willem Veras MD Anesthesia: GETA, local and other (TAP block) Was an Angio Technologist used for this Procedure?: No Angio Technologist: Francois Snow Estimated blood loss (mL): 10 IV fluids (mL): 3,000 Urine output (mL): 0 (No Membreno to record) Pathology: other (Stomach) Condition: stable Disposition: PACU
--- NOTE | 2021-07-04 13:32 | P.DS_ITS ---
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 DISCHARGE DIAGNOSIS: same, s/p laparoscopic sleeve gastrectomy ? PAST SURGICAL HISTORY: [place] tooth extraction ? PROCEDURE: upper endoscopy, laparoscopic sleeve gastrectomy ? DISCHARGE SUMMARY: ? History of Present Illness: ? The patient is a?25 year-old woman with a BMI of?41.6 kg/m2 and associated co- morbidities as described above. The patient had extensive work-up,lost?26.6 lbs preoperatively and was electively scheduled for laparoscopic, possible open sleeve gastrectomy and gastropexy. Risks and complications of the surgery were discussed with the patient in advance, particularly the possibility of , pulmonary embolism, anastomotic leak, bleeding, bowel injury, GERD, cardiac, renal or pulmonary complications. The patient understood all the risks and was in agreement with the surgical plan. ? Hospital Course: ? The patient underwent an uneventful laparoscopic sleeve gastrectomy with gastropexy on the day of admission. Postoperatively, the patient was transferred to the surgical floor. The patient received IV Acetaminophen and IV dilaudid for pain control. Patient was started on bariatric phase 1 diet POD #0. On postoperative day one, the patient was feeling well without nausea, vomiting, fevers, or tachycardia. The patient had some mild incisional pain and the abdomen was soft. ? On the morning of postoperative day one, the patient was continued on 1 ounce of water or ice every half hour. During the day, the patient did fairly well, having some incisional pain, but able to ambulate adequately and to tolerate liquids well. ? Since the patient is doing well, we decided that the patient was ready to be discharged. The patient was given instructions to follow-up with me next week and to call my office for any fever over 101, persistent abdominal pain, nausea, vomiting, GERD, symptoms of DVT such as calf tenderness, or leg swelling, or pulmonary embolism such as chest pain or shortness of breath. The patient was also instructed to drink 40-60 ounces of liquids per day using the 1-ounce cups. The patient had been given prescriptions for Tylenol for pain, Zofran prn for nausea, and pantoprazole and carafate previously. The patient was encouraged to ambulate and use the incentive spirometer. The patient was allowed to shower, but no baths, and encouraged to stay active at home. All of these instructions were given to the patient personally. All questions were answered and the patient understood all instructions, the instructions were also given to the patient in print. Time Spent with Patient Time attestation: Total time spent providing and/or coordinating discharge services: Discharge coordination time: Less than 30 minutes Quality: Stroke Does the patient have a stroke diagnosis?: No Physical Exam Vital Signs: Vital Signs: Last Vital Signs Temp 97.8 F 07/04/21 13:25 Pulse 106 H 07/04/21 13:25 Resp 18 07/04/21 13:25 BP 119/68 07/04/21 13:25 Pulse Ox 93 07/04/21 13:25 BMI result Body Mass Index 35.7 DS: Data Data Completed and Pending Pending studies at discharge: Pending at discharge 07/04/21 12:27 Surgical [PTH] Routine Labs on day of discharge: Laboratory Results - last 24 hr 07/04/21 08:39 Urine Test NEGATIVE Discharge Plan Discharge Patient Disposition: Home, Self-Care Discharge Diagnosis: s/p laparoscopic sleeve gastrectomy Referrals: Physician,Unknown J [Primary Care Provider] - 1 Week Discharge Medications: Continued pantoprazole 40 mg tablet,delayed release (DR/EC) 40 mg PO DAILY Qty: 30 RF: 2 sucralfate 100 mg/mL suspension 10 ml PO BID Qty: 400 RF: 2 ondansetron HCl 4 mg tablet 4 mg PO BID Qty: 20 RF: 0 Held L norgest/e.estradiol-e.estrad [Seasonique] 0.15 mg-30 mcg (84)/10 mcg (7) tablets,dose pack,3 month 1 tab PO DAILY 84 Days Qty: 84 RF: 0 Hold Instructions: until discuss with Dr Veras Discontinued thiamine HCl (vitamin B1) 100 mg tablet 100 mg PO DAILY Qty: 30 RF: 2 mecobalamin (vitamin B12) 1,000 mcg tablet,disintegrating 1,000 mcg sublingual DAILY Qty: 30 RF: 2 famotidine [Pepcid] 20 mg tablet 20 mg PO DAILY PRN (Reason: abdominal discomfort) Qty: 30 RF: 0 Midol 500-25 mg tablet 1 tab PO Q6H PRN (Reason: Pain) RF: 0 cholecalciferol (vitamin D3) 125 mcg (5,000 unit) capsule 125 mcg PO DAILY Qty: 30 RF: 2 ibuprofen 400 mg tablet 400 mg PO TID PRN (Reason: Pain) RF: 0 polyethylene glycol 3350 [Miralax] 17 gram powder in packet 17 g PO DAILY Qty: 14 RF: 0 Discharge Orders: Discharge Order (Routine); Ordered 07/05/21 Ordered By: Willem Veras Diet: other Activity on Discharge: No heavy lifting Stand Alone Forms: Patient Portal Discharge page Care Plan Goals: weight loss Health Concerns: morbid obesity Plan of Treatment: No tub baths, sex or returning to work until discussed at first post op appointment. No exercise, alcohol, tobacco or illegal drug use. Continue to use incentive spirometer hourly while awake. Walk in home for 5- 10 minutes every 2 hours during the first week. Follow all instructions in the bariatric handbook and call with any questions.Discharge Instructions 1. Please call your doctor or come back to the emergency room should any new sy mptoms arise. 2. You will receive a courtesy call from [facility] 24-48 hours after discharge. 3. Activity: abstain from alcohol, practice limited stair climbing, no bending, no driving, no exercise, no illicit substances, no lifting, no sex, no tub bath, no work. 4. Diet: continue as discussed with Dr. Veras. 5. Dressing Change/Wound Care: Your incision is covered by clear bandages and guaze underneath. If the area is tender, you may apply an ice pack for short intervals (no more than 20 minutes on, followed by at least 20 minutes off). Do not apply heat. Do not use creams, lotions, or topical antibiotics unless instructed to do so by your surgeon. These can cause infection or allergic reaction. 6. Call your doctor if: - Your temperature exceeds 101.5 F - You experience excessive pain or swelling - You have an unexpected reaction to medication - You have excessive bleeding - You experience continued vomiting/nausea - Your incision begins to separate - Your incision shows signs of infection such as increased redness, swelling, excessive pain, heat, or drainage (light blood or clear fluid is normal) 7. General instructions: No lifting greater than 5 lbs for the next 4 weeks[address] within 24 hours of taking narcotic pain medications. If you do not move your bowels in the next 2 days, please take milk of magnesia over the counter. Please follow the post op diet and do not advance your diet until you are seen in the office in about 2 weeks. Please walk around your home every hour or two to prevent blood clots from forming in your legs. You do not need to wake from sleeping to walk. Please sleep in a bed or couch to prevent kinking at the hips and knees. Please take your incentive spirometer (your lung active directory architect) home with you and use it for the next few days to prevent pneumonias. You may shower, no hot tubs, baths or swimming pools. Please call the office with any questions or concerns such as increasing abdominal pain, fever, chills, shortness of breath, chest pain, leg pain or swelling, or redness or drainage from your incisions. Please stay on stage 3 diet which includes sugar free clear liquids such as ice pops and jello and broth and crystal light. Avoid all carbonation. Please drink 3 protein shakes with at least 25-30 grams of protein daily or 3 of the Celebrate 4:1 shakes which can be purchased in our office. The Celebrate shakes have all of the bariatric vitamins you need if you consume these shakes. If you are drinking other protein shakes, you will need to purchase the Celebrate multivitamins and calcium that we provide in the office (they will provide all the vitamins you need). Please make sure you are consuming at least 40-60 ounces of water in addition to your 3 protein shakes daily. Do not hesitate to contact the office with any questions at . The patient's medical history has been reviewed and they are considered low risk for post op DVT and therefore DVT prophylaxis is not considered necessary. Travel after surgery was reviewed. The patient has not disclosed any travel plans during the first 30 days after surgery and they have been advised that within the first 30 days after surgery any bus, plane, train or car travel over 2 hours in duration is contraindicated due to the possibility of developing blood clots from immobility. Any travel, needs to include periods of ambulation of 10 minutes in duration every 2 hours.? The patient was instructed to discuss any plans for travel during this period with their bariatric surgeon. Assessment: stable s/p laparoscopic sleeve gastrectomy Discharge Date/Time: 07/05/21 10:40
[2021-07-04] MEDS: Lactated Ringers 1,000 ML 150 ML IVCONT ×2 (13:50→21:01)
[2021-07-04 13:56] LABS: Hematocrit 39.4 % (37.0-47.0); Hemoglobin 13.2 g/dl (12.0-16.0)
[2021-07-04] MEDS: ondansetron HCL 4 MG/2 ML VIAL IVPUSH ×2 (15:13→20:55)
[2021-07-04] MEDS: HYDROmorphone HCl 0.5 MG/0.5 ML SYRINGE 0.25 MG IVPUSH (15:16)
[2021-07-04] MEDS: Famotidine/PF 20 MG/2 ML VIAL IVPUSH (15:33)
[2021-07-04] MEDS: Metoclopramide HCl 10 MG/2 ML VIAL IVPUSH ×2 (16:17→22:47)
[2021-07-04] MEDS: ceFAZolin Sodium/Dextrose,Iso 2 GM/50 ML PIGGYBACK IV (17:02)
[2021-07-04 21:14] LABS: Anion Gap 17 (12-20); Blood Urea Nitrogen 6 mg/dL (9-16); Calcium 9.1 mg/dL (8.4-10.2); Carbon Dioxide 19 mmol/L (22-29); Chloride 102 mmol/L (96-108); Creatinine Clr Calc Pharmacy 108.6; Estimated Glomerular Filt Rate > 60; Glucose Random 124 mg/dL (60-115); Potassium 4.4 mmol/L (3.3-5.1); Sodium 134 mmol/L (135-145)
[2021-07-05] MEDS: Famotidine/PF 20 MG/2 ML VIAL IVPUSH ×2 (01:28→08:43)
[2021-07-05 01:48] VITALS: BP 127/77; PULSE 75; RESP 16; TEMP 36.6; O2SAT 98
[2021-07-05] MEDS: Lactated Ringers 1,000 ML 150 ML IVCONT (03:44)
[2021-07-05 04:32] LABS: MANUAL DIFF FLAG NO
[2021-07-05 04:36] LABS: Basophils Percent Auto 0.1 % (0-2); Hematocrit 38.9 % (37.0-47.0); Hemoglobin 12.9 g/dl (12.0-16.0); Imm Gran Abs Auto 0.03 X10*3/uL (0.00-0.03); Imm Gran Pct Auto 0.4 % (0.0-0.4); Lymphocytes Absolute Auto 0.6 X10*3/uL (1.2-4.9); Lymphocytes Percent Auto 8.9 % (20-40); Mean Corpuscular HGB Conc 33.2 g/dl (31.0-35.0); Mean Corpuscular Hemoglobin 28.9 pg (27.0-33.0); Mean Corpuscular Volume 87.2 fL (80.0-98.0); Monocytes Absolute Auto 0.2 X10*3/uL (0.1-1.2); Monocytes Percent Auto 2.3 % (2-11); Neutrophils Absolute Auto 6.2 x10*3/uL (2.0-8.3); Neutrophils Percent Auto 88.3 % (45-73); Platelet Count 256 X10*3/uL (160-400); Red Blood Count 4.46 X10*6/uL (4.20-5.50); Red Cell Distribution Width 12.7 % (11.0-16.0)
[2021-07-05 05:02] LABS: Anion Gap 17 (12-20); Blood Urea Nitrogen 6 mg/dL (9-16); Calcium 9.8 mg/dL (8.4-10.2); Carbon Dioxide 20 mmol/L (22-29); Chloride 105 mmol/L (96-108); Creatinine Clr Calc Pharmacy 111.3; Estimated Glomerular Filt Rate > 60; Glucose Random 115 mg/dL (60-115); Potassium 4.4 mmol/L (3.3-5.1); Sodium 138 mmol/L (135-145)
[2021-07-05] MEDS: ondansetron HCL 4 MG/2 ML VIAL IVPUSH (05:27)
[2021-07-05 06:01] VITALS: BP 143/91; PULSE 80; RESP 20; TEMP 36.6; O2SAT 98
--- NOTE | 2021-07-05 07:19 | PC.NURSE ---
Pt ambuated to bathroom. Gait steady. Pt demonstrates effective splinting.
--- NOTE | 2021-07-05 08:39 | PC.NURSE ---
Report to Bianca Smith and Suzette Bocanegra Rns
[2021-07-05 08:46] VITALS: BP 135/81; PULSE 83; RESP 16; TEMP 37; O2SAT 98
--- NOTE | 2021-07-05 10:06 | PC.NURSE ---
Patient up in chair since voiding, water intake completed and called in OR to report to DR Veras. Per DR orders patient may D/C to home if feeling alright . Patient report some acid reflux but without other complaints and ready to go home. Patient asked to contacts called for shredder picker.
--- NOTE | 2021-07-05 14:08 | HO.POSTANES ---
Post Anesthesia Evaluation Post Anesthesia Evaluation Vital Signs: Vital Signs Temp Pulse Resp BP Pulse Ox 07/05/21 08:46 98.6 F 83 16 135/81 98 07/05/21 06:01 98 F 80 20 143/91 H 98 Anesthesia: General Endotracheal-GETA Mental Status: Awake Pain Control: Satisfactory Nausea/Vomiting: None Hydration: Adequate Anesthesia-Related Issues: No Anes. Related Issues
== END 2021-07-05 10:40 | disposition home or self-care (01) | DRG 403 ==
PROVIDERS: Nurse Practitioner; Physician Assistant Surgical; Admitting Provider Surgery; Visit Provider Surgery
PROC: 0DB64Z3 Excision of Stomach, Percutaneous Endoscopic Approach, Vertical (ICD-10-PCS; CPT 43845; principal; 2021-07-04 10:10)
DX: E66.01 Morbid (severe) obesity due to excess calories (principal); K76.0 Fatty (change of) liver, not elsewhere classified; E28.2 Polycystic ovarian syndrome; K21.9 Gastro-esophageal reflux disease without esophagitis; F41.9 Anxiety disorder, unspecified; Z68.37 Body mass index [BMI] 37.0-37.9, adult
CPT/HCPCS: 36415; 80048; 81025; 85014; 85018; 85025; 86850; 86900; 86901; 87635; 88307; 88342; 99024; A4649; J0131; J0690; J1100; J1170; J2250; J2370; J2405; J2550; J2765; J3010

== ENCOUNTER → 2021-07-09 08:09 | Outpatient (BNVA) | payer BC, SELFPAY | PROVIDERS: Visit Provider Surgery ==

== ENCOUNTER → 2021-08-02 08:54 | Outpatient (BNVA) | payer BC, SELFPAY | PROVIDERS: Visit Provider Physician Assistant Surgical ==

== ENCOUNTER → 2021-08-08 08:04 | Outpatient (BNVA) | payer BC, SELFPAY | PROVIDERS: Visit Provider Surgery ==

== ENCOUNTER → 2021-08-17 12:54 | Outpatient (BNVA) | payer BC, SELFPAY | PROVIDERS: Visit Provider Advanced Practice Midwife | DX: Z32.02 Encounter for pregnancy test, result negative (principal); Z30.09 Encounter for other general counseling and advice on contraception; Z30.011 Encounter for initial prescription of contraceptive pills; N92.1 Excessive and frequent menstruation with irregular cycle; E28.2 Polycystic ovarian syndrome; E66.01 Morbid (severe) obesity due to excess calories; Z68.33 Body mass index [BMI] 33.0-33.9, adult; Z98.84 Bariatric surgery status | CPT/HCPCS: 81025 ==

== ENCOUNTER → 2021-09-18 13:24 | Outpatient (BNVA) | payer BC, SELFPAY | PROVIDERS: Visit Provider Dietitian, Registered | DX: E66.9 Obesity, unspecified (principal); Z68.30 Body mass index [BMI] 30.0-30.9, adult | CPT/HCPCS: 97803 ==

== ENCOUNTER → 2021-10-10 08:07 | Outpatient (BNVA) | payer BC, SELFPAY | PROVIDERS: Referring Provider Surgery; Visit Provider Dietitian, Registered | DX: E66.3 Overweight (principal); Z68.29 Body mass index [BMI] 29.0-29.9, adult | CPT/HCPCS: 97803 ==

== ENCOUNTER → 2021-10-26 08:12 | Outpatient (BNVA) | payer BC, SELFPAY | PROVIDERS: Referring Provider Physician Assistant Surgical; Visit Provider Dietitian, Registered | DX: E66.3 Overweight (principal); Z68.28 Body mass index [BMI] 28.0-28.9, adult | CPT/HCPCS: 97803 ==

== ENCOUNTER → 2021-11-02 07:59 | Outpatient (BNVA) | payer BC, SELFPAY | PROVIDERS: Referring Provider Surgery; Visit Provider Dietitian, Registered | DX: E66.3 Overweight (principal) | CPT/HCPCS: 97803 ==

== ENCOUNTER → 2021-11-23 11:41 | Outpatient (BNVA) | payer MEDICAID, SELFPAY | PROVIDERS: Referring Provider Surgery; Visit Provider Dietitian, Registered | DX: O26.899 Other specified pregnancy related conditions, unspecified trimester (principal); I74.9 Embolism and thrombosis of unspecified artery; O99.210 Obesity complicating pregnancy, unspecified trimester; E66.9 Obesity, unspecified; Z98.84 Bariatric surgery status | CPT/HCPCS: 97803 ==

== ENCOUNTER → 2021-12-21 11:21 | Outpatient (BNVA) | payer OTHER, SELFPAY | PROVIDERS: Referring Provider Surgery; Visit Provider Dietitian, Registered | DX: E66.9 Obesity, unspecified (principal) | CPT/HCPCS: 97803 ==

== ENCOUNTER → 2022-01-21 12:07 | Outpatient (BNVA) | payer OTHER, SELFPAY | PROVIDERS: Referring Provider Surgery; Visit Provider Dietitian, Registered | DX: E66.9 Obesity, unspecified (principal); Z71.3 Dietary counseling and surveillance | CPT/HCPCS: 97803 ==

== ENCOUNTER → 2022-02-15 14:00 | Outpatient (BNVA) | payer OTHER, SELFPAY | PROVIDERS: Visit Provider Dietitian, Registered | DX: O99.212 Obesity complicating pregnancy, second trimester (principal); E66.01 Morbid (severe) obesity due to excess calories; O99.342 Other mental disorders complicating pregnancy, second trimester; F41.8 Other specified anxiety disorders; Z3A.21 21 weeks gestation of pregnancy | CPT/HCPCS: 97803 ==

== ENCOUNTER → 2022-03-14 14:00 | Outpatient (BNVA) | payer OTHER, SELFPAY | PROVIDERS: Visit Provider Counselor Mental Health | DX: O26.892 Other specified pregnancy related conditions, second trimester (principal); F33.1 Major depressive disorder, recurrent, moderate; Z3A.25 25 weeks gestation of pregnancy; Z98.84 Bariatric surgery status | CPT/HCPCS: 90834 ==

== ENCOUNTER → 2022-03-18 14:27 | Outpatient (BNVA) | payer OTHER, SELFPAY | PROVIDERS: Visit Provider Dietitian, Registered | DX: E66.9 Obesity, unspecified (principal); Z68.29 Body mass index [BMI] 29.0-29.9, adult | CPT/HCPCS: 97803 ==

== ENCOUNTER → 2022-03-28 12:45 | Outpatient (BNVA) | payer OTHER, SELFPAY | PROVIDERS: Visit Provider Counselor Mental Health | DX: F33.1 Major depressive disorder, recurrent, moderate (principal); Z98.84 Bariatric surgery status | CPT/HCPCS: 90834 ==

== ENCOUNTER → 2022-04-17 14:00 | Outpatient (BNVA) | payer OTHER, SELFPAY | PROVIDERS: Visit Provider Counselor Mental Health | DX: O99.340 Other mental disorders complicating pregnancy, unspecified trimester (principal); F33.1 Major depressive disorder, recurrent, moderate; Z3A.00 Weeks of gestation of pregnancy not specified; Z98.84 Bariatric surgery status | CPT/HCPCS: 90832 ==

== ENCOUNTER 2022-05-03 10:14 | Emergency (ER) | payer OTHER, SELFPAY ==
--- NOTE | ~2022-05-03 | US_ITS ---
EXAMINATION: US ABDOMEN LIMITED CLINICAL INFORMATION: Right upper quadrant pain. COMPARISON: CT dated 03/27/2021 TECHNIQUE: Real-time imaging of the right upper quadrant abdominal viscera. FINDINGS: PANCREAS: Normal. LIVER: Normal. The liver is normal in size. The liver contour is normal. Parenchymal echogenicity is normal. No focal hepatic lesion. There is no intrahepatic biliary duct dilatation seen. GALLBLADDER: Normal. The gallbladder is physiologically distended without evidence of stones, sludge, polyps, wall thickening or pericholecystic fluid. COMMON BILE DUCT: Normal in caliber measuring 0.3 cm in diameter. RIGHT KIDNEY: Normal. No hydronephrosis. No renal calculi or focal parenchymal lesions. The kidney measures cm in maximum dimension. FREE FLUID: None. US/US abdomen limited IMPRESSION: No definite cholelithiasis. No evidence of cholecystitis.
[2022-05-03 10:19] VITALS: BP 108/71; PULSE 102; RESP 14; TEMP 36.1; O2SAT 100; BMI 30.2
--- NOTE | 2022-05-03 10:39 | ED.ABDPAIN ---
HPI - Abdominal Pain General Chief Complaint: Abdominal Pain Stated Complaint: Stomach Pain Time Seen by Provider: 05/03/22 10:38 Source: patient Mode of arrival: ambulatory Limitations: no limitations History of Present Illness HPI narrative: Patient is a 26-year-old female who presents emergency department today for evaluation of a right upper abdominal pain. Also with associated nausea, vomiting, dizziness, poor p.o. intake. She reports onset of pain to be yesterday, she presented to the emergency department at [facility] was ultimately sent to the OB floor as she is 32 weeks . She states she was monitored there for some hours, that the baby is doing well and there were no concerns. She was ultimately discharged home as her pain had been improving. She states late last night the pain returned again and was very severe, and she went back to [facility] emergency department, she was discharged early this morning with presumably unremarkable workup. Today she went for a routine follow-up appointment with Hematology for chronic iron deficiency anemia, she was still reporting the abdominal pain, advised to come to the emergency department. Related Data Home Medications Medication Instructions Recorded Confirmed Vitamin 110 mcg PO DAILY 12/14/21 05/03/22 Previous Rx's Medication Instructions Recorded ferrous sulfate 325 mg (65 mg 325 mg PO DAILY #60 tabs 12/14/21 iron) tablet (Iron (ferrous sulfate)) B-complex with vitamin C 1 tab PO DAILY #30 tabs 02/15/22 cholecalciferol (vitamin D3) 50 50 mcg PO DAILY #30 caps 02/15/22 mcg (2,000 unit) capsule ondansetron 4 mg disintegrating 4 mg PO Q8H PRN nausea and 05/03/22 tablet vomiting #10 tabs Allergies Allergy/AdvReac Type Severity Reaction Status Date / Time quetiapine [From SEROQUEL] Allergy Severe ANAPHYLAXIS Verified 08/17/21 13:11 oxycodone [From PERCOCET] AdvReac Unknown tachycardia, Verified 08/02/21 09:12 sweating Review of Systems Review of Systems Constitutional: No weight loss. No fever. No chills. No weakness. No fatigue. Eye: No swelling. No redness. ENT: No sore throat. No rhinorrhea. No nasal congestion. No sore throat. No difficulty swallowing. Skin: No rash. No itching. Cardiovascular: No chest pain. No chest pressure. No palpitations. No pedal edema. Respiratory: No shortness of breath. No cough. No sputum production. Gastrointestinal: No anorexia. Positive nausea. Positive vomiting. No diarrhea. Positive abdominal pain. No blood in stool. Genitourinary: No burning micturition. No urinary frequency. No incontinence. No vaginal discharge or vaginal bleeding. No pelvic pain. Neurologic: No headache. Positive dizziness. No pre-syncope/ syncope. Musculoskeletal: No muscle pain. No back pain. No joint pain. No stiffness. Hematologic: No bleeding. No bruising. Lymphatics: No enlarged lymph nodes. Psychiatric:No depression. No anxiety. Yes all other systems are reviewed and are negative PMFSH Past Medical History Attestation statement: The following information was validated with the patient. Source: old records reviewed Medical History Abnormal uterine bleeding (AUB) Anxiety Depression Encounter for IUD removal Endometriosis GERD (gastroesophageal reflux disease) History of anemia Malpositioned IUD Migraines Morbid obesity No known health problems PCOS (polycystic ovarian syndrome) PTSD (post-traumatic stress disorder) Screen for STD (sexually transmitted disease) Steatosis, liver Surgical History Hx of wisdom tooth extraction S/P laparoscopic sleeve gastrectomy Family History Family History Mother Anemia Asthma Sister Anemia Maternal Grandmother Stroke Asthma Family/Other Heart attack Brother Asthma Maternal Aunt Asthma Paternal Grandfather Diabetes Paternal Grandmother Dementia Father No problems noted. Social History Social History Household Members: Significant Other Housing: Apartment Are you a primary daycare director to a significant other at home: No Do you presently have visiting nurse or other home services: No Alcohol intake: former Patient Tobacco Use Status: Never used Tobacco Substance Use Type: Marijuana Advance Directives: No Advance Directives Information Provided: No service: No Current occupational status: employed Physical Exam ED Vital Signs: Vital Signs - 24 hr 05/03/22 10:19 05/03/22 11:54 Temperature 96.9 F 98.4 F Pulse Rate 102 H 94 Respiratory Rate 14 18 Blood Pressure 108/71 113/68 Pulse Oximetry 100 100 Oxygen Delivery Method Room Air Room Air BMI result Body Mass Index 30.2 Appearance: Alert.?Oriented to person, place and time. No acute distress.?Normal affect. Eyes: Pupils equal, round and reactive to light.? No scleral icterus ENT: Pharynx normal.?? Neck: Normal inspection.? Neck supple.?? CVS: Heart sounds normal. Normal heart rate and rhythm.? Pulses normal.?? Respiratory: No respiratory distress.? Lung sounds clear to auscultation bilaterally?? Abdomen: Soft upper quadrant tenderness. Normoactive bowel sounds. No CVA tenderness Skin: Skin warm and dry.? Normal skin color.? No jaundice?? Extremities: No lower extremity edema.? No calf ttp? Neuro: Moves all extremities spontaneously. Sensation intact bilaterally. No focal neuro deficits. Ambulates with normal steady gait. Course Course Course Narrative: Patient is a 26-year-old female with a past medical history of gastric sleeve, anxiety, depression, GERD, iron deficiency anemia, PCOS, hepatic steatosis. Presenting to emergency department today for right upper abdominal pain. Patient is a with due date 06/28/2022 being followed at [facility] for OB care. New patient's records from her online portal indicate testing yesterday in the emergency department to include CBC; anemia, overall unremarkable BMP, negative COVID-19 testing, a normal renal ultrasound, bedside ultrasound performed in ED revealing no gallbladder wall thickening or cholelithiasis. Upon physical examination she appears fatigued, has significant tenderness to the right upper abdomen/lateral abdomen upon palpation. Otherwise unremarkable abdominal exam. Laparoscopic abdominal incisions from gastric sleeve surgery in June 2021 without signs of infection, no visible hernias, tolerating oral intake in the emergency department, moving bowels normally, low suspicion for bowel obstruction. Vital signs overall stable, she is not hypertensive. Patient had outpatient labs obtained this morning very mild leukocytosis at 11.9, a normocytic anemia with hemoglobin 9.5 and hematocrit 28.7, CMP is overall unremarkable, will add on lipase and obtain ultrasound of the right upper quadrant, and obtain urinalysis. Will reach out to patient's OB provider, she may ultimately require transfer back for evaluation continued monitoring for potential of preeclampsia/ labor Reevaluation(s) Reevaluation #1: Urinalysis reveals trace proteinuria, no evidence of urinary infection. Spoke with patient's OB office Dr. Najera, updated on today's findings, did not feel that further OB monitoring was required at this point. Abdominal ultrasound without acute abnormalities. Discussed findings with patient, encouraged oral intake, Tylenol as needed for pain, will send prescription for Zofran to pharmacy, outpatient follow-up with primary care provider, worrisome send symptoms to return back to the emergency department/OB provider for. All questions answered, discharged home in stable condition. Time: 13:21 [facility] - Abdominal Pain Medical Records Attestation: I reviewed the patient's medical records. Lab Data Attestation: I reviewed the patient's lab results. Labs: Lab Results 05/03/22 05/03/22 Range/Units 09:24 11:52 Lipase 23 (8-78) U/L Urine Color Yellow Urine Appearance Clear Urine pH 6.5 (5.0-9.0) Ur Specific [place] 1.025 (1.005-1.025) Urine Protein Trace (Neg-Trace) mg/dL Urine Glucose (UA) Negative (Negative) mg/dL Urine Ketones >=160 (Negative) mg/dL Urine Blood Negative (Negative) Urine Nitrite Negative (Negative) Ur Leukocyte Esterase Small (1+) H (Negative) Urine RBC 0-2 (0-2) /HPF Urine WBC 21-50 H (0-5) /HPF Ur Squamous Epith Cells 6-10 (0-2) /HPF Urine Bacteria 2+ (None Seen) Hyaline Casts 0-2 (0-2) /LPF Imaging Data US - abdomen: Radiologist's impression: US/US abdomen limited IMPRESSION: No definite cholelithiasis. No evidence of cholecystitis. Discharge Plan Discharge Clinical Impression: Abdominal pain Patient Disposition: Home, Self-Care Instructions: Abdominal Pain in (ED) Additional Instructions: Please follow-up with your OB provider as well as your primary care provider Use Zofran as needed for nausea. You can take Tylenol 500 mg, 2 tablets (1,000mg) every 4-6 hours as needed for pain, but not to exceed 3 doses daily (3,000mg).? Return to the emergency department any new or worsening symptoms or concerns Please try and stay well hydrated, eating small frequent meals. Prescriptions: New ondansetron 4 mg tablet,disintegrating 4 mg PO Q8H PRN (Reason: nausea and vomiting) Qty: 10 0RF No Action cholecalciferol (vitamin D3) 50 mcg (2,000 unit) capsule 50 mcg PO DAILY Qty: 30 11RF B-complex with vitamin C Tablet 1 tab PO DAILY Qty: 30 7RF Vitamin 110 mcg PO DAILY ferrous sulfate [Iron (ferrous sulfate)] 325 mg (65 mg iron) Tablet 325 mg PO DAILY Qty: 60 3RF Referrals: Physician,None [Primary Care Provider] - Discharge Date/Time: 05/03/22 13:43
[2022-05-03 11:39] LABS: Lipase 23 U/L (8-78)
[2022-05-03 11:54] VITALS: BP 113/68; PULSE 94; RESP 18; TEMP 36.9; O2SAT 100
[2022-05-03 12:05] LABS: Appearance Urine Clear; Color Urine Yellow; Glucose Urine UA Negative (Negative); Leukocyte Esterase Urine Small (1+) (Negative); Nitrite Urine Negative (Negative); PH 6.5 (5.0-9.0); Specific Gravity - Urine 1.025 (1.005-1.025); UMIC TRIGGER UACC YES; Urine Blood Negative (Negative); Urine Ketones >=160 mg/dL (Negative); Urine Protein Trace mg/dL (Neg-Trace)
[2022-05-03 12:07] LABS: Bacteria Urine 2+ (None Seen); Hyaline Casts Urine 0-2 /LPF (0-2); RBC Urine 0-2 /HPF (0-2); UACC Culture Trigger YES; WBC Urine 21-50 /HPF (0-5)
== END 2022-05-03 13:43 | disposition home or self-care (01) ==
PROVIDERS: Nurse Practitioner Family; Emergency Provider Emergency Medicine Emergency Medical Services
DX: O26.93 Pregnancy related conditions, unspecified, third trimester (principal); Z3A.32 32 weeks gestation of pregnancy; R10.11 Right upper quadrant pain; R42 Dizziness and giddiness; R11.2 Nausea with vomiting, unspecified
CPT/HCPCS: 36415; 76705; 81001; 81003; 83690; 87086; 99283; 99284

== ENCOUNTER 2022-05-07 12:17 | Outpatient (REF) | payer OTHER, SELFPAY | END 2022-05-07 12:18 | disposition home or self-care (01) | LOC: HO.MDS 12:17 | PROVIDERS: Visit Provider Internal Medicine | DX: D50.9 Iron deficiency anemia, unspecified (principal) | CPT/HCPCS: 96365; J2916 ==

== ENCOUNTER → 2022-05-08 14:53 | Outpatient (BNVA) | payer OTHER, SELFPAY | PROVIDERS: Visit Provider Dietitian, Registered | DX: Z90.3 Acquired absence of stomach [part of] (principal) | CPT/HCPCS: 97803 ==

== ENCOUNTER → 2022-05-16 14:45 | Outpatient (BNVA) | payer OTHER, SELFPAY | PROVIDERS: Visit Provider Counselor Mental Health | DX: F33.1 Major depressive disorder, recurrent, moderate (principal); Z34.90 Encounter for supervision of normal pregnancy, unspecified, unspecified trimester; Z98.84 Bariatric surgery status | CPT/HCPCS: 90834 ==

== ENCOUNTER 2022-05-17 12:06 | Outpatient (REF) | payer OTHER, SELFPAY | END 2022-05-17 12:07 | disposition home or self-care (01) | LOC: HO.MDS 12:06 | PROVIDERS: Visit Provider Internal Medicine | DX: D50.9 Iron deficiency anemia, unspecified (principal) | CPT/HCPCS: 96365; J2916 ==

== ENCOUNTER 2022-05-24 12:04 | Outpatient (REF) | payer OTHER, SELFPAY | END 2022-05-24 12:05 | disposition home or self-care (01) | LOC: HO.MDS 12:04 | PROVIDERS: Visit Provider Internal Medicine | DX: D50.9 Iron deficiency anemia, unspecified (principal) | CPT/HCPCS: 96365; J2916 ==

== ENCOUNTER 2022-05-31 12:03 | Outpatient (REF) | payer OTHER, SELFPAY | END 2022-05-31 12:04 | disposition home or self-care (01) | LOC: HO.MDS 12:03 | PROVIDERS: Visit Provider Internal Medicine | DX: D50.9 Iron deficiency anemia, unspecified (principal) | CPT/HCPCS: 96365; J2916 ==

== ENCOUNTER 2022-06-07 11:38 | Outpatient (REF) | payer OTHER, SELFPAY | END 2022-06-07 11:39 | disposition home or self-care (01) | LOC: HO.MDS 11:38 | PROVIDERS: Visit Provider Internal Medicine | DX: D50.9 Iron deficiency anemia, unspecified (principal) | CPT/HCPCS: 96365; J2916 ==

== ENCOUNTER 2022-06-14 12:10 | Outpatient (REF) | payer OTHER, SELFPAY | END 2022-06-14 12:11 | disposition home or self-care (01) | LOC: HO.MDS 12:10 | PROVIDERS: Visit Provider Internal Medicine | DX: O99.013 Anemia complicating pregnancy, third trimester (principal); D50.9 Iron deficiency anemia, unspecified; Z3A.38 38 weeks gestation of pregnancy | CPT/HCPCS: 96365; J2916 ==

== ENCOUNTER → 2022-06-26 15:00 | Outpatient (BNVA) | payer OTHER, SELFPAY | PROVIDERS: Visit Provider Counselor Mental Health | DX: F33.1 Major depressive disorder, recurrent, moderate (principal); Z98.84 Bariatric surgery status | CPT/HCPCS: 90834 ==

== ENCOUNTER → 2022-07-10 13:00 | Outpatient (BNVA) | payer OTHER, SELFPAY | PROVIDERS: Visit Provider Counselor Mental Health | DX: F33.1 Major depressive disorder, recurrent, moderate (principal); O80 Encounter for full-term uncomplicated delivery; Z3A.00 Weeks of gestation of pregnancy not specified; Z98.84 Bariatric surgery status | CPT/HCPCS: 90834 ==

== ENCOUNTER → 2022-07-16 14:48 | Outpatient (BNVA) | payer OTHER, SELFPAY | PROVIDERS: Visit Provider Dietitian, Registered | DX: Z90.3 Acquired absence of stomach [part of] (principal) | CPT/HCPCS: 97803 ==

== ENCOUNTER → 2022-08-13 10:08 | Outpatient (BNVA) | payer OTHER, SELFPAY | PROVIDERS: Visit Provider Dietitian, Registered | DX: Z90.3 Acquired absence of stomach [part of] (principal) | CPT/HCPCS: 97803 ==

== ENCOUNTER → 2022-08-30 15:09 | Outpatient (BNVA) | payer OTHER, SELFPAY | PROVIDERS: Visit Provider Physician Assistant Surgical | DX: E66.3 Overweight (principal); Z98.84 Bariatric surgery status; Z68.27 Body mass index [BMI] 27.0-27.9, adult | CPT/HCPCS: 99212 ==

== ENCOUNTER → 2022-09-03 15:30 | Outpatient (BNVA) | payer OTHER, SELFPAY | PROVIDERS: Visit Provider Counselor Mental Health ==

== ENCOUNTER → 2022-09-19 10:30 | Outpatient (BNVA) | payer OTHER, SELFPAY | PROVIDERS: Visit Provider Counselor Mental Health ==

== ENCOUNTER → 2022-09-23 15:46 | Outpatient (BNVA) | payer OTHER, SELFPAY | PROVIDERS: Visit Provider Dietitian, Registered | DX: E66.3 Overweight (principal) | CPT/HCPCS: 97803 ==

== ENCOUNTER → 2022-10-03 10:30 | Outpatient (BNVA) | payer OTHER, SELFPAY | PROVIDERS: Visit Provider Counselor Mental Health ==

== ENCOUNTER → 2022-10-17 11:00 | Outpatient (BNVA) | payer OTHER, SELFPAY | PROVIDERS: Visit Provider Counselor Mental Health ==

== ENCOUNTER → 2022-10-24 12:30 | Outpatient (BNVA) | payer OTHER, SELFPAY | PROVIDERS: Visit Provider Counselor Mental Health ==

== ENCOUNTER → 2022-11-07 14:00 | Outpatient (BNVA) | payer OTHER, SELFPAY | PROVIDERS: Visit Provider Counselor Mental Health ==

== ENCOUNTER → 2022-11-21 10:30 | Outpatient (BNVA) | payer OTHER, SELFPAY | PROVIDERS: Visit Provider Counselor Mental Health ==

== ENCOUNTER → 2022-11-25 15:13 | Outpatient (BNVA) | payer OTHER, SELFPAY | PROVIDERS: Visit Provider Dietitian, Registered | DX: E66.01 Morbid (severe) obesity due to excess calories (principal) | CPT/HCPCS: 97803 ==

== ENCOUNTER → 2022-12-03 10:30 | Outpatient (BNVA) | payer OTHER, SELFPAY | PROVIDERS: Visit Provider Counselor Mental Health ==

== ENCOUNTER 2022-12-18 12:56 | Outpatient (REF) | payer OTHER, SELFPAY ==
[2022-12-18 15:01] LABS: Alanine Aminotransferase 9 U/L (0-31); Albumin Level 4.4 g/dL (3.5-5.0); Alkaline Phosphatase 48 U/L (39-117); Anion Gap 13 (12-20); Aspartate Amino Transferase 14 U/L (5-31); Bilirubin Total 0.9 mg/dL (0.0-1.0); Blood Urea Nitrogen 12 mg/dL (9-16); C Reactive Protein < 0.10 mg/dL (< or = 0.50); Calcium 9.9 mg/dL (8.4-10.2); Carbon Dioxide 23 mmol/L (22-29); Chloride 109 mmol/L (96-108); Cholesterol 207 mg/dL; Estimated Glomerular Filt Rate > 60; Glucose Random 99 mg/dL (60-115); HDL Cholesterol 66 mg/dL; Iron 40 mcg/dL (30-160); LDL Cholesterol Calculated 131 mg/dl; Percent Iron Saturation 11 % (15-50); Potassium 4.1 mmol/L (3.3-5.1); Sodium 141 mmol/L (135-145); Total Iron Binding Capacity 372 mcg/dL (228-428); Total Protein 7.8 g/dL (6.5-8.0); Triglycerides 51 mg/dL; Unsaturated Iron Binding 332 ug/dL
[2022-12-18 15:18] LABS: Ferritin 7 ng/mL (10-122); Insulin 4 uU/mL (2-29); TSH reflex Free T4 1.92 uIU/mL (0.32-4.0); Vitamin D 25-OH Total 25.7 ng/mL (>30)
[2022-12-22 12:43] LABS: Vitamin B1 13 nmol/L (8-30)
[2022-12-24 22:09] LABS: Vitamin A 55 mcg/dL (38-98)
== END 2022-12-18 12:57 | disposition home or self-care (01) ==
LOC: HO.LAB 12:56
PROVIDERS: Visit Provider Physician Assistant Surgical
DX: Z98.84 Bariatric surgery status (principal)
CPT/HCPCS: 36415; 80053; 80061; 82306; 82607; 82728; 82746; 83036; 83525; 83540; 83970; 84425; 84443; 84590; 84630; 85025; 86140

== ENCOUNTER 2023-02-19 11:12 | Outpatient (REF) | payer OTHER, SELFPAY | END 2023-02-19 11:13 | disposition home or self-care (01) | LOC: HO.MDS 11:12 | PROVIDERS: Visit Provider Internal Medicine | DX: D50.8 Other iron deficiency anemias (principal) | CPT/HCPCS: 96374; J1756 ==

== ENCOUNTER 2023-02-28 08:28 | Outpatient (REF) | payer OTHER, SELFPAY | END 2023-02-28 08:29 | disposition home or self-care (01) | LOC: HO.MDS 08:28 | PROVIDERS: Visit Provider Internal Medicine | DX: D50.8 Other iron deficiency anemias (principal) | CPT/HCPCS: 96365; J1756 ==

== ENCOUNTER 2023-03-07 08:36 | Outpatient (REF) | payer OTHER, SELFPAY | END 2023-03-07 08:37 | disposition home or self-care (01) | LOC: HO.MDS 08:36 | PROVIDERS: Visit Provider Internal Medicine | DX: D50.8 Other iron deficiency anemias (principal) | CPT/HCPCS: 96365; J1756 ==

== ENCOUNTER 2023-03-12 14:03 | Outpatient (AMB) | payer OTHER, SELFPAY ==
--- NOTE | 2023-03-17 15:14 | A.OFFWM_ITS ---
Intake Intake Visit Reasons: VIDEO PO LSG 07/03/21 Allergies quetiapine [From SEROQUEL] Allergy (Severe, Verified 08/30/22 15:14) ANAPHYLAXIS oxycodone [From PERCOCET] Adverse Reaction (Unknown, Verified 08/30/22 15:14) tachycardia, sweating PFSH Medical History Abnormal uterine bleeding (AUB) Anxiety Depression Encounter for IUD removal Endometriosis GERD (gastroesophageal reflux disease) History of anemia Malpositioned IUD Migraines Morbid obesity No known health problems PCOS (polycystic ovarian syndrome) PTSD (post-traumatic stress disorder) Screen for STD (sexually transmitted disease) Steatosis, liver Surgical History Hx of wisdom tooth extraction S/P laparoscopic sleeve gastrectomy Family History Mother Anemia Asthma Sister Anemia Maternal Grandmother Stroke Asthma Family/Other Heart attack Brother Asthma Maternal Aunt Asthma Paternal Grandfather Diabetes Paternal Grandmother Dementia Father No problems noted. Social History Household Members: Significant Other Housing: Apartment Are you a primary critical care clinical nurse specialist to a significant other at home: No Do you presently have visiting nurse or other home services: No Alcohol intake: current Alcohol intake frequency: holidays/special occasions only Patient Tobacco Use Status: Never used Tobacco Substance Use Type: Marijuana service: No Current occupational status: employed Female Reproductive History Menstrual Age of Menarche: 9 Behavioral Health Assessment Weight Management Therapy Therapy Notes Details Patient reported struggling. She had to leave her mother's house with the baby, was never able to get the apartment she applied for due to her income. Cynthia is now again living with her daughters father. She reported that he has stopped drinking currently and things between them have slightly improved but she does not trust him, has low expectations. Presenting Concerns Referral Source provider Reason for referral stress/depression Living Situation Current Living Situation Rent At risk of losing current housing? Yes Satisfied with current living situation? No Comments Pt currently lives in the apartment her daughters father rents. Their relationship has been unstable in the past due to his drinking. Assessment & Plan Assessment & Plan (1) Major depressive disorder, recurrent, moderate: Code(s): F33.1 - Major depressive disorder, recurrent, moderate (2) S/P laparoscopic sleeve gastrectomy: Comment: 07/03/21 Code(s): Z98.84 - Bariatric surgery status (3) Delivery normal: Code(s): O80 - Encounter for full-term uncomplicated delivery Plan Patient is in need of ongoing therapy to help address depression and life stressors. Patient had a baby shortly after gastric sleeve surgery 5 months ago, She is now living with her mother as she is no longer with her babys' father. Pt struggles with going back to the relationship with him which was/is unhealthy. Telehealth Telehealth Location of provider rendering services: practice address Location of patient: other Patient Identification confirmed using: Name, : Yes Telehealth method: video Patient verbally consented to treatment: Yes Patient verbally consented to billing insurance company: Yes Patient informed of any privacy concerns related to visit: Yes Minutes spent on Phone/Video with Pt.: 40 Coding Level of Care Code Tele Psytx 45 mins (04278) Diagnoses Major depressive disorder, recurrent, moderate F33.1 S/P laparoscopic sleeve gastrectomy Z98.84 Delivery normal O80 Time Spent (min) 40
== END 2023-03-17 15:14 | disposition home or self-care (01) ==
PROVIDERS: Visit Provider Counselor Mental Health
DX: F33.1 Major depressive disorder, recurrent, moderate (principal); Z98.84 Bariatric surgery status; O80 Encounter for full-term uncomplicated delivery
CPT/HCPCS: 90834

== ENCOUNTER → 2023-03-12 14:03 | Outpatient (BNVA) | payer OTHER, SELFPAY | PROVIDERS: Visit Provider Counselor Mental Health ==

== ENCOUNTER 2023-04-10 10:47 | Emergency (ER) | payer OTHER, SELFPAY ==
--- NOTE | 2023-04-10 10:50 | ECG_ITS ---
Test Reason : CP Blood Pressure : / mmHG Vent. Rate : 065 BPM Atrial Rate : 065 BPM P-R Int : 136 ms QRS Dur : 074 ms QT Int : 424 ms P-R-T Axes : 003 042 028 degrees QTc Int : 440 ms Normal sinus rhythm Normal ECG When compared with ECG of 16-FEB-2021 10:05, No significant change was found Referred By: Santo Bullock Electronically Signed By:SANTY PANIAGUA MD
[2023-04-10 10:59] VITALS: BP 137/84; PULSE 66; RESP 18; TEMP 36.6; O2SAT 98; BMI 27.2
--- NOTE | 2023-04-10 11:03 | ED.CHESTPAIN ---
HPI - Chest Pain General Chief Complaint: General Medical Stated Complaint: chest pain, dizzy, excessive bleeding Time Seen by Provider: 04/10/23 10:51 Source: patient Mode of arrival: ambulatory Limitations: no limitations History of Present Illness HPI narrative: chest pain, vaginal bleeding feels stressed. Not sleeping and she cant eat. Patient states she has not had a full meal in a week. Chest pain feels like she is having needles in her chest. She is having panic attacks and shaking MD complaint: chest pain Onset (ago): week(s) Timing of current episode: episodic Onset: other (while feeling anxious) Related Data Previous Rx's Medication Instructions Recorded hydroxyzine HCl 25 mg tablet 25 mg PO TID PRN anxiety #20 tabs 04/10/23 Allergies Allergy/AdvReac Type Severity Reaction Status Date / Time quetiapine [From SEROQUEL] Allergy Severe ANAPHYLAXIS Verified 08/30/22 15:14 oxycodone [From PERCOCET] AdvReac Unknown tachycardia, Verified 08/30/22 15:14 sweating Review of Systems Review of Systems: Yes all other systems are reviewed and are negative Neurologic: Denies Sensory deficit (Neuro) PMFSH Past Medical History Medical History Steatosis, liver History of anemia PTSD (post-traumatic stress disorder) Depression Migraines Screen for STD (sexually transmitted disease) Abnormal uterine bleeding (AUB) Anxiety GERD (gastroesophageal reflux disease) Morbid obesity Encounter for IUD removal Malpositioned IUD PCOS (polycystic ovarian syndrome) Endometriosis No known health problems Surgical History S/P laparoscopic sleeve gastrectomy Hx of wisdom tooth extraction Family History Family History Mother Anemia Asthma Sister Anemia Maternal Grandmother Stroke Asthma Family/Other Heart attack Brother Asthma Maternal Aunt Asthma Paternal Grandfather Diabetes Paternal Grandmother Dementia Father No problems noted. Social History Social History Household Members: Significant Other Housing: Apartment Are you a primary care transitions manager to a significant other at home: No Do you presently have visiting nurse or other home services: No Alcohol intake: current Alcohol intake frequency: holidays/special occasions only Patient Tobacco Use Status: Never used Tobacco Smoked in Last 30 Days: No Use of substances other than those prescribed or required for medical reasons: Yes Substance Use Type: Marijuana Advance Directives: No service: No Current occupational status: employed Physical Exam Vital Signs: Vital Signs: Last Vital Signs Temp 98 F 04/10/23 10:59 Pulse 66 04/10/23 10:59 Resp 18 04/10/23 10:59 BP 137/84 04/10/23 10:59 Pulse Ox 98 04/10/23 10:59 O2 Del Method Room Air 04/10/23 10:59 BMI result Body Mass Index 27.2 Const: Other: anxious and tearful Nutritional Appearance: average body habitus Orientation/consciousness: oriented to person and patient oriented x3 Limitations: no limitations HEENT: Head: Yes normal to inspection Ears: external ears normal General nose exam: Normal external nose present Mouth: Normal oral and palatal mucosa present and oropharynx normal Throat: Yes posterior oropharynx normal Eyes: General: appearance normal, both eyes and all related structures Neck: Other: supple Neck: Yes normal visual inspection Chest: Chest palpation & inspection: normal inspection of the chest Resp: Auscultation: clear to auscultation bilaterally Cardio: Jugular venous distension: no JVD Rate: regular rate Rhythm: regular rhythm Heart sounds: S1 normal heart sound present and S2 normal heart sound present GI: Inspection: Yes normal to inspection Palpation (GI): Soft to palpation, nontender and No hepatosplenomegaly present Auscultation: normal bowel sounds : General: Yes no CVA tenderness Back/Spine/Pelvis: Back: no CVA tenderness Skin: General skin exam: no rashes or lesions noted Neuro: General: oriented to person and patient oriented x3 Cranial nerves: Yes CN's II-XII intact bilaterally Motor exam (neuro): 5/5 motor strength present throughout Sensory Exam: No Sensory deficit (Neuro) Extrem: General: Yes normal to inspection Psych: Appearance: grossly normal Course Reevaluation(s) Reevaluation #1: Patient with chronic depression will have her follow up with outpatient therapist, she is not suicidal or homicidal. Will dc home Time: 12:11 Medical Decision Making Differential Diagnosis Differential Diagnoses: The differential diagnosis associated with the presentation includes (cardiac ischemia, pericarditis, anxiety, pneumonia were all considered) Admission/Observation Consideration of admission/observation: Escalation of care including admission/observation considered (upon arrival pateint was considered for admission) Lab Data MDM Lab Attestation statement: I reviewed the patient's lab results. (no abnormalities) 04/10/23 11:37 04/10/23 11:37 Labs: Lab Results 04/10/23 Range/Units 11:37 WBC 4.7 L (4.8-10.8) X10*3/uL RBC 4.47 (4.20-5.50) X10*6/uL Hgb 12.3 (12.0-16.0) g/dl Hct 37.2 (37.0-47.0) % MCV 83.2 (80.0-98.0) fL MCH 27.5 (27.0-33.0) pg MCHC 33.1 (31.0-35.0) g/dl RDW 16.7 H (11.0-16.0) % Plt Count 240 (160-400) X10*3/uL MPV 11.5 (9.4-12.3) fL Immature Gran % (Auto) 0.0 (0.0-0.4) % Neut % (Auto) 59.5 (45-73) % Lymph % (Auto) 34.8 (20-40) % [place] % (Auto) 4.9 (2-11) % Eos % (Auto) 0.4 (0-4) % Baso % (Auto) 0.4 (0-2) % Lymph # (Auto) 1.6 (1.2-4.9) X10*3/uL [place] # (Auto) 0.2 (0.1-1.2) X10*3/uL Eos # (Auto) 0.0 (0.0-0.4) X10*3/uL Baso # (Auto) 0.0 (0.0-0.2) X10*3/uL Abs Immat Gran (auto) 0.00 (0.00-0.03) X10*3/uL Absolute Neuts (auto) 2.8 (2.0-8.3) x10*3/uL Absolute Nucleated RBC 0.000 (0.0-0.012) X10*3/uL Nucleated RBC % (auto) 0.0 (0.0-0.2) /100WBC Sodium 138 (135-145) mmol/L Potassium 3.8 (3.3-5.1) mmol/L Chloride 108 (96-108) mmol/L Carbon Dioxide 22 (22-29) mmol/L Anion Gap 12 (12-20) BUN 14 (9-16) mg/dL Creatinine 0.84 (0.5-1.4) mg/dL Estim Creat Clear Calc 97.0 Estimated GFR > 60 Random Glucose 100 (60-115) mg/dL Calcium 9.4 (8.4-10.2) mg/dL Total Bilirubin 0.4 (0.0-1.0) mg/dL AST 13 (5-31) U/L ALT 9 (0-31) U/L Alkaline Phosphatase 44 (39-117) U/L Total Protein 7.5 (6.5-8.0) g/dL Albumin 4.2 (3.5-5.0) g/dL Urine Color Red A Urine Appearance Clear Urine pH 6.5 (5.0-9.0) Ur Specific [place] 1.025 (1.005-1.025) Urine Protein 100 (2+) H (Neg-Trace) mg/dL Urine Glucose (UA) Negative (Negative) mg/dL Urine Ketones 15 (Negative) mg/dL Urine Blood Large (3+) H (Negative) Urine Nitrite Negative (Negative) Ur Leukocyte Esterase Small (1+) H (Negative) Urine RBC >20 H (0-2) /HPF Urine WBC 11-20 H (0-5) /HPF Ur Squamous Epith Cells 0-2 (0-2) /HPF Urine Bacteria 3+ (None Seen) Hyaline Casts 0-2 (0-2) /LPF Urine Test NEGATIVE (NEGATIVE) Independent Interpretation I performed an independent interpretation of an: EKG (sinus [address] or twave changes) Tests considered The following testing was considered but not selected: chest xray considered but no hypoxia, no lung findings Chronic Conditions Patient?s care impacted by: Other (depression) Social Determinants Patient?s care significantly limited by Social Determinants of Health including: Alcoholism and drug addiction in family Discharge Plan Discharge Clinical Impression: Anxiety, Depression Patient Disposition: Home, Self-Care Prescriptions: New hydroxyzine HCl 25 mg tablet 25 mg PO TID PRN (Reason: anxiety) Qty: 20 0RF Referrals: Physician,None [Primary Care Provider] - 1 day (follow up with your therapist)
[2023-04-10 11:42] LABS: Basophils Percent Auto 0.4 % (0-2); Eosinophils Percent Auto 0.4 % (0-4); Hematocrit 37.2 % (37.0-47.0); Hemoglobin 12.3 g/dl (12.0-16.0); Lymphocytes Absolute Auto 1.6 X10*3/uL (1.2-4.9); Lymphocytes Percent Auto 34.8 % (20-40); MANUAL DIFF FLAG NO; Mean Corpuscular HGB Conc 33.1 g/dl (31.0-35.0); Mean Corpuscular Hemoglobin 27.5 pg (27.0-33.0); Mean Corpuscular Volume 83.2 fL (80.0-98.0); Mean Platelet Volume 11.5 fL (9.4-12.3); Monocytes Absolute Auto 0.2 X10*3/uL (0.1-1.2); Monocytes Percent Auto 4.9 % (2-11); Neutrophils Absolute Auto 2.8 x10*3/uL (2.0-8.3); Neutrophils Percent Auto 59.5 % (45-73); Platelet Count 240 X10*3/uL (160-400); Red Blood Count 4.47 X10*6/uL (4.20-5.50); Red Cell Distribution Width 16.7 % (11.0-16.0); White Blood Count 4.7 X10*3/uL (4.8-10.8)
[2023-04-10 11:46] LABS: UPreg QC Valid YES; Urine Pregnancy NEGATIVE (NEGATIVE)
[2023-04-10 11:47] LABS: Appearance Urine Clear; Color Urine Red; Glucose Urine UA Negative (Negative); Leukocyte Esterase Urine Small (1+) (Negative); Nitrite Urine Negative (Negative); PH 6.5 (5.0-9.0); Specific Gravity - Urine 1.025 (1.005-1.025); UMIC TRIGGER UACC YES; Urine Blood Large (3+) (Negative); Urine Ketones 15 mg/dL (Negative); Urine Protein 100 (2+) mg/dL (Neg-Trace)
[2023-04-10 11:50] LABS: Bacteria Urine 3+ (None Seen); Hyaline Casts Urine 0-2 /LPF (0-2); RBC Urine >20 /HPF (0-2); Squamous Epithelial Cell Urine 0-2 /HPF (0-2); UACC Culture Trigger YES
[2023-04-10 11:56] LABS: Alanine Aminotransferase 9 U/L (0-31); Albumin Level 4.2 g/dL (3.5-5.0); Alkaline Phosphatase 44 U/L (39-117); Anion Gap 12 (12-20); Aspartate Amino Transferase 13 U/L (5-31); Bilirubin Total 0.4 mg/dL (0.0-1.0); Blood Urea Nitrogen 14 mg/dL (9-16); Calcium 9.4 mg/dL (8.4-10.2); Carbon Dioxide 22 mmol/L (22-29); Chloride 108 mmol/L (96-108); Estimated Glomerular Filt Rate > 60; Glucose Random 100 mg/dL (60-115); Potassium 3.8 mmol/L (3.3-5.1); Sodium 138 mmol/L (135-145); Total Protein 7.5 g/dL (6.5-8.0)
== END 2023-04-10 12:47 | disposition home or self-care (01) ==
PROVIDERS: Physician Assistant; Emergency Provider Emergency Medicine
DX: R07.89 Other chest pain (principal); F33.1 Major depressive disorder, recurrent, moderate; R42 Dizziness and giddiness; F41.1 Generalized anxiety disorder; F43.0 Acute stress reaction; Z79.899 Other long term (current) drug therapy
CPT/HCPCS: 36415; 80053; 81001; 81025; 85025; 87086; 93005; 99283; 99284

== ENCOUNTER 2023-05-30 15:11 | Outpatient (AMB) | payer OTHER, SELFPAY ==
--- NOTE | 2023-05-30 15:04 | A.OFFVIS_ITS ---
Intake Intake Visit Reasons: VIDEO PO LSG 07/03/21 Allergies quetiapine [From SEROQUEL] Allergy (Severe, Verified 08/30/22 15:14) ANAPHYLAXIS oxycodone [From PERCOCET] Adverse Reaction (Unknown, Verified 08/30/22 15:14) tachycardia, sweating HPI Nutrition Presentation Details LSG DOS (07/03/2021) Preop weight (06/22)? 209# Gave 06/27/22 to a healthy baby girl weight before giving 178# last known weight 154#, did not ask for a current weight Diet Assmnt Details pt reports she has been doing much better . She is back living with her daughter's father. She reports he is now sober, and she reports this has resulted in her mental health improving. Noted ED visit 2 months ago due to panic attacks. She has been trying to eat 3+ meals per day, protein with each meal and is trying to eat more vegetables so that her 11 old baby can learn from her. She does report feeling dizzy, tired, weak but she reports this is due to anemia. Is having very heavy menstrual bleeding, she has been following with Hematology and her OBGYN. Hydration: better, estimated 48oz Vitamins: none , reports issues with affording them. Our office ordered labs to be completed a long time ago but pt hasn't gotten them done. Also didn't get labs done at recommended intervals during as pt never went to get them done. Monitoring/Goals Nutrition problem monitoring total energy intake, level of knowledge/skill, total PRO intake, total CHO intake and weight Outcome progress progressing Learning/Education Readiness to learn good Stages of change action Most Recent Diabetes Results: Cholesterol 207 mg/dL 12/18/22 HDL Cholesterol 66 mg/dL 12/18/22 Triglycerides 51 mg/dL 12/18/22 Creatinine 0.84 mg/dL (0.5-1.4) 04/10/23 Blood Urea Nitrogen 14 mg/dL (9-16) 04/10/23 Sodium 138 mmol/L (135-145) 04/10/23 Potassium 3.8 mmol/L (3.3-5.1) 04/10/23 Chloride 108 mmol/L (96-108) 04/10/23 Carbon Dioxide 22 mmol/L (22-29) 04/10/23 Calcium 9.4 mg/dL (8.4-10.2) 04/10/23 AST 13 U/L (5-31) 04/10/23 ALT 9 U/L (0-31) 04/10/23 Total Protein 7.5 g/dL (6.5-8.0) 04/10/23 Albumin 4.2 g/dL (3.5-5.0) 04/10/23 PFSH Medical History Steatosis, liver History of anemia PTSD (post-traumatic stress disorder) Depression Migraines Screen for STD (sexually transmitted disease) Abnormal uterine bleeding (AUB) Anxiety GERD (gastroesophageal reflux disease) Morbid obesity Encounter for IUD removal Malpositioned IUD PCOS (polycystic ovarian syndrome) Endometriosis No known health problems Surgical History S/P laparoscopic sleeve gastrectomy Hx of wisdom tooth extraction Family History Mother Anemia Asthma Sister Anemia Maternal Grandmother Stroke Asthma Family/Other Heart attack Brother Asthma Maternal Aunt Asthma Paternal Grandfather Diabetes Paternal Grandmother Dementia Father No problems noted. Social History Household Members: Significant Other Housing: Apartment Are you a primary progressive care unit registered nurse to a significant other at home: No Do you presently have visiting nurse or other home services: No Alcohol intake: current Alcohol intake frequency: holidays/special occasions only Patient Tobacco Use Status: Never used Tobacco Substance Use Type: Marijuana service: No Current occupational status: employed Female Reproductive History Menstrual Age of Menarche: 9 Assessment & Plan Assessment & Plan (1) Overweight (BMI 25.0-29.9): Code(s): E66.3 - Overweight Plan John with PA for routine annual? me 3 months later Joanne (at request of pt) at convenience of pt Patient Instructions: Is doing much better prioritizing nutritional needs. All questions answered and she was encouraged to communicate as needed Telehealth Telehealth Location of provider rendering services: practice address Location of patient: address on file Patient Identification confirmed using: Name, : Yes Telehealth method: video Patient verbally consented to treatment: Yes Patient verbally consented to billing insurance company: Yes Patient informed of any privacy concerns related to visit: Yes Minutes spent on Phone/Video with Pt.: 20 Coding Level of Care Code Nutr Indiv Subseq (48155) Diagnoses Overweight (BMI 25.0-29.9) E66.3 Time Spent (min) 20
== END 2023-05-30 15:21 | disposition home or self-care (01) ==
LOC: HO.HBS 15:11
PROVIDERS: Visit Provider Dietitian, Registered
DX: E66.3 Overweight (principal)

== ENCOUNTER → 2023-05-30 15:11 | Outpatient (BNVA) | payer OTHER, SELFPAY | PROVIDERS: Visit Provider Dietitian, Registered | DX: E66.3 Overweight (principal) | CPT/HCPCS: 97803 ==

== ENCOUNTER 2023-07-17 13:58 | Outpatient (AMB) | payer OTHER, SELFPAY ==
--- NOTE | 2023-07-17 14:00 | MHC.OFFVIS ---
Intake Vital Signs 07/17/23 14:02 Height 5 ft 4 in Weight 157 lb BMI 26.9 BP 113/55 L Blood Pressure Location Rt brachial Position Sitting Pulse 76 Intake Visit Reasons: Painful hemorrhoids Intake Note: This patient presents for an assessment for painful hemorrhoids. Patient c/o; Onset 1 1/2 years, intermittent rectal bleeding, reports last week pain was unbearable and was not able to sleep, reports no constipation, reports has a bowel movement everyday. Bankruptcy Legal Assistant Required: No Engineering Department Chair: Engineering Department Chair Present (Arnie) Accompanied by: Self / Same As Patient Allergies quetiapine [From SEROQUEL] Allergy (Severe, Verified 07/17/23 14:10) ANAPHYLAXIS oxycodone [From PERCOCET] Adverse Reaction (Unknown, Verified 07/17/23 14:10) tachycardia, sweating Medication List - Last Reconciled 07/17/23 by Elijah Shearer MD etonogestrel (Nexplanon) 68 mg subdermal CONT hydroxyzine HCl 25 mg PO TID PRN HPI Painful hemorrhoids HPI Details 27-year-old female referred for hemorrhoid issues. She says that she started to feel hemorrhoids outside her anus when she was over a year ago. She says that these hemorrhoids have persisted since that time. She describes periodic pain and bleeding as well as swelling with her hemorrhoids. She says that she wants to proceed with hemorrhoidectomy in view of her symptoms. She denies being constipated. [facility] Medical History (Updated 07/17/23 @ 14:39 by Elijah Shearer MD) Hemorrhoids with complication Steatosis, liver History of anemia PTSD (post-traumatic stress disorder) Depression Migraines Screen for STD (sexually transmitted disease) Abnormal uterine bleeding (AUB) Anxiety GERD (gastroesophageal reflux disease) Morbid obesity Encounter for IUD removal Malpositioned IUD PCOS (polycystic ovarian syndrome) Endometriosis No known health problems Surgical History S/P laparoscopic sleeve gastrectomy Hx of wisdom tooth extraction Family History Mother Anemia Asthma Sister Anemia Maternal Grandmother Stroke Asthma Family/Other Heart attack Brother Asthma Maternal Aunt Asthma Paternal Grandfather Diabetes Paternal Grandmother Dementia Father No problems noted. Social History Household Members: Significant Other Housing: Apartment Are you a primary hemodialysis patient care specialist to a significant other at home: No Do you presently have visiting nurse or other home services: No Alcohol intake: current Alcohol intake frequency: holidays/special occasions only Patient Tobacco Use Status: Never used Tobacco Substance Use Type: Marijuana service: No Current occupational status: employed Female Reproductive History Menstrual Age of Menarche: 9 Review of Systems Const Denies chills and Denies fever(s) Card Denies chest pain, Denies dyspnea and Denies dyspnea on exertion Resp Denies cough, Denies dyspnea and Denies dyspnea on exertion GI Denies hematochezia and Denies change in bowel habits Details: Has vaginal bleeding periodically Denies hematuria Musc Denies back pain and Denies limited range of motion Neuro Denies focal weakness and Denies convulsions Psych Denies depression and Denies mood swings Physical Exam Vital Signs: Last Vital Signs Pulse 76 07/17/23 14:02 BP 113/55 L 07/17/23 14:02 BMI result Body Mass Index 26.9 Const General: comfortable and no acute distress Orientation/consciousness: patient oriented x3 Neck Neck: Yes no lymphadenopathy Resp Auscultation: clear to auscultation bilaterally Cardio Rhythm: regular rhythm GI Other: External hemorrhoids mostly on the right side Palpation (GI): Soft to palpation, nontender and no guarding Neuro General: patient oriented x3 Office Procedures Anoscopy She was in frannie-knife position. The anoscope was gently inserted. A full examination of the anal canal was done. Did have a mix of internal external hemorrhoidal columns on the right side posteriorly which appeared to be moderate size. She has a little hemorrhoidal column on the left. There were no other lesions. There was no bleeding. There was no fissure or induration [id number] Assessment & Plan Assessment & Plan (1) Hemorrhoids with complication: Code(s): K64.8 - Other hemorrhoids Plan: She describes frequent problems with pain and swelling with her hemorrhoids. She wants to proceed with hemorrhoidectomy. I had a long discussion with her about the technique of hemorrhoidectomy. I discussed the risks including but not limited to bleeding, infections, postop pain, poor healing, as well as the benefits and alternatives I explained to her what to expect postoperatively especially with regards to pain She wants to proceed. Coding Level of Care Code New Pt Level 3 (49765) Diagnoses Hemorrhoids with complication K64.8 CPT Codes Details - CPT: 04553-Sypnucki ([id number])
[2023-07-17 14:02] VITALS: BP 113/55; PULSE 76; BMI 26.9
== END 2023-07-17 14:37 | disposition home or self-care (01) ==
PROVIDERS: Visit Provider Surgery
DX: K64.8 Other hemorrhoids (principal)
CPT/HCPCS: 46600; 99203

== ENCOUNTER → 2023-07-17 13:58 | Outpatient (BNVA) | payer OTHER, SELFPAY | PROVIDERS: Visit Provider Surgery | DX: K64.8 Other hemorrhoids (principal); K64.4 Residual hemorrhoidal skin tags | CPT/HCPCS: 46600; 99202 ==

== ENCOUNTER 2023-08-08 08:34 | Day surgery (SDC) | payer OTHER, SELFPAY ==
[2023-08-06 15:24] VITALS: BMI 26.9
--- NOTE | 2023-08-07 10:48 | P.CONAN_ITS ---
HPI - Anesthesia Eval Consult details Narrative: 27yo F for Exam under anesthesia Hemorrhoidectomy PMFSH Active Problems Active Problems: All Active Problems (Updated 07/17/23 @ 14:39 by Elijah Shearer MD) Hemorrhoids with complication (Acute) Overweight (Acute) Delivery normal (Acute) Major depressive disorder, recurrent, moderate (Acute) (Acute) BCP ( control pills) initiation (Acute) Counseling for control, intrauterine device (Acute) control counseling (Acute) BMI 33.0-33.9,adult (Acute) S/P laparoscopic sleeve gastrectomy (Acute) BMI 35.0-35.9,adult (Acute) Steatosis, liver (Acute) PCOS (polycystic ovarian syndrome) (Acute) Iron deficiency anemia (Chronic) Menometrorrhagia (Acute) Pelvic pain (Acute) Pelvic cramping (Acute) Hx of anorexia nervosa (Acute) Moderately severe recurrent major depression (Acute) Chronic post-traumatic stress disorder (PTSD) (Acute) Vitamin B1 deficiency (Acute) Vitamin D deficiency (Acute) Vitamin B12 deficiency (Acute) Gastritis (Acute) Binge eating disorder (Acute) Abdominal pain (Acute) Vitamin B1 deficiency (Acute) Vitamin B12 deficiency (Acute) Obesity (Acute) BMI 39.0-39.9,adult (Acute) Microscopic hematuria (Acute) BMI 37.0-37.9, adult (Acute) Anxiety (Acute) GERD (gastroesophageal reflux disease) (Acute) Morbid obesity (Acute) Past Medical History Medical History (Updated 08/08/23 @ 08:50 by Billie Wilkinson, RN) Hemorrhoids with complication Steatosis, liver History of anemia PTSD (post-traumatic stress disorder) Depression Migraines Screen for STD (sexually transmitted disease) Abnormal uterine bleeding (AUB) Anxiety GERD (gastroesophageal reflux disease) Morbid obesity Encounter for IUD removal Malpositioned IUD PCOS (polycystic ovarian syndrome) Endometriosis No known health problems Family History Family History Mother Anemia Asthma Sister Anemia Maternal Grandmother Stroke Asthma Family/Other Heart attack Brother Asthma Maternal Aunt Asthma Paternal Grandfather Diabetes Paternal Grandmother Dementia Father No problems noted. Family history of problems with anesthesia: No Surgical History Surgical History S/P laparoscopic sleeve gastrectomy Hx of wisdom tooth extraction History of Problems with Anesthesia: No Social History Social History Household Members: Significant Other Housing: Apartment Are you a primary nurse behavioral health care to a significant other at home: No Do you presently have visiting nurse or other home services: No Alcohol intake: current Alcohol intake frequency: holidays/special occasions only Patient Tobacco Use Status: Never used Tobacco Use of substances other than those prescribed or required for medical reasons: Yes Substance Use Type: Marijuana Substance Use Frequency: Occasionally Are you DNR?: No Advance Directives: No Advance Directives Information Provided: Yes service: No Current occupational status: employed Meds Allergies Allergy/AdvReac Type Severity Reaction Status Date / Time quetiapine [From SEROQUEL] Allergy Severe ANAPHYLAXIS Verified 08/08/23 08:50 cefotetan Allergy Hives Verified 08/08/23 11:13 oxycodone [From PERCOCET] AdvReac Unknown tachycardia, Verified 08/08/23 08:50 sweating Home Medications Medication Instructions Recorded Confirmed Last Taken Type etonogestrel 68 mg subdermal 68 mg subdermal CONT 06/11/23 08/08/23 Unknown History implant (Nexplanon) Exam Height,Weight and Vital Signs: Height 5 ft 4 in Weight 71.214 kg Pertinent Lab Results Pertinent Lab Results: Laboratory Tests 04/10/23 04/10/23 06/11/23 11:37 11:37 08:41 WBC 4.2 L Hgb 11.3 L Hct 35.3 L Plt Count 249 Sodium 138 Potassium 3.8 Chloride 108 Carbon Dioxide 22 BUN 14 Creatinine 0.84 Assessment and Plan Assessment Anesthesia Assessment: Chart Reviewed Final Anesthetic Review Family History of Problems with Anesthesia: No History of Problems with Anesthesia: No
[2023-08-08] VITALS (10 sets, daily range): BP systolic 101–124; BP diastolic 38–78; PULSE 64–124; RESP 14–17; TEMP 36.6–36.8; O2SAT 92–100; BMI 25.7
[2023-08-08 09:04] LABS: UPreg QC Valid YES; Urine Pregnancy NEGATIVE (NEGATIVE)
[2023-08-08] MEDS: Lactated Ringers 1,000 ML 100 ML IVCONT (09:08)
--- NOTE | 2023-08-08 10:15 | HO.ANESPROP2 ---
[facility] Active Problems Active Problems: All Active Problems (Updated 08/08/23 @ 08:50 by Billie Wilkinson, RN) Overweight (Acute) Delivery normal (Acute) Major depressive disorder, recurrent, moderate (Acute) (Acute) BCP ( control pills) initiation (Acute) Counseling for control, intrauterine device (Acute) control counseling (Acute) BMI 33.0-33.9,adult (Acute) BMI 35.0-35.9,adult (Acute) BMI 37.0-37.9, adult (Acute) Microscopic hematuria (Acute) BMI 39.0-39.9,adult (Acute) Obesity (Acute) Vitamin B12 deficiency (Acute) Vitamin B1 deficiency (Acute) Abdominal pain (Acute) Binge eating disorder (Acute) Gastritis (Acute) Vitamin B12 deficiency (Acute) Vitamin D deficiency (Acute) Vitamin B1 deficiency (Acute) Chronic post-traumatic stress disorder (PTSD) (Acute) Moderately severe recurrent major depression (Acute) Hx of anorexia nervosa (Acute) Pelvic cramping (Acute) Pelvic pain (Acute) Menometrorrhagia (Acute) Iron deficiency anemia (Chronic) Hemorrhoids with complication (Acute) S/P laparoscopic sleeve gastrectomy (Acute) Steatosis, liver (Acute) PCOS (polycystic ovarian syndrome) (Acute) Anxiety (Acute) GERD (gastroesophageal reflux disease) (Acute) Morbid obesity (Acute) Past Medical History Medical History (Updated 08/08/23 @ 08:50 by Billie Wilkinson, RN) Hemorrhoids with complication Steatosis, liver History of anemia PTSD (post-traumatic stress disorder) Depression Migraines Screen for STD (sexually transmitted disease) Abnormal uterine bleeding (AUB) Anxiety GERD (gastroesophageal reflux disease) Morbid obesity Encounter for IUD removal Malpositioned IUD PCOS (polycystic ovarian syndrome) Endometriosis No known health problems Family History Family History Mother Anemia Asthma Sister Anemia Maternal Grandmother Stroke Asthma Family/Other Heart attack Brother Asthma Maternal Aunt Asthma Paternal Grandfather Diabetes Paternal Grandmother Dementia Father No problems noted. Family history of problems with anesthesia: No Surgical History Surgical History S/P laparoscopic sleeve gastrectomy Hx of wisdom tooth extraction History of Problems with Anesthesia: No Social History Social History Household Members: Significant Other Housing: Apartment Are you a primary healthcare science specialist to a significant other at home: No Do you presently have visiting nurse or other home services: No Alcohol intake: current Alcohol intake frequency: holidays/special occasions only Patient Tobacco Use Status: Never used Tobacco Use of substances other than those prescribed or required for medical reasons: Yes Substance Use Type: Marijuana Substance Use Frequency: Occasionally Are you DNR?: No Advance Directives: No Advance Directives Information Provided: Yes service: No Current occupational status: employed Meds Allergies Allergy/AdvReac Type Severity Reaction Status Date / Time quetiapine [From SEROQUEL] Allergy Severe ANAPHYLAXIS Verified 08/08/23 08:50 oxycodone [From PERCOCET] AdvReac Unknown tachycardia, Verified 08/08/23 08:50 sweating Active Medications: Current Medications Fentanyl (Fentanyl Citrate/Pf 100 Mcg/2 Ml Vial) 25 mcg IVPUSH Q5M PRN; Protocol PRN Reason: Pain, Moderate(Pain Scale 4-6) Lactated Ringer's (Lr) 1,000 mls @ 100 mls/hr IVCONT .Q10H OPAL Last Admin: 08/08/23 09:08 Dose: 100 mls/hr Ondansetron HCl (Ondansetron Hcl 4 Mg/2 Ml Vial) 4 mg IVPUSH ONCE PRN PRN Reason: Nausea and Vomiting Home Medications Medication Instructions Recorded Confirmed Last Taken Type etonogestrel 68 mg subdermal 68 mg subdermal CONT 06/11/23 08/08/23 Unknown History implant (Nexplanon) Exam Height,Weight and Vital Signs: Height 5 ft 4 in Weight 68.039 kg Last Vital Signs Temp 98.2 F 08/08/23 09:03 Pulse 82 08/08/23 09:03 Resp 15 08/08/23 09:03 BP 111/69 08/08/23 09:03 Pulse Ox 99 08/08/23 09:03 O2 Del Method Room Air 08/08/23 09:03 Pertinent Lab Results Pertinent Lab Results: Laboratory Tests 08/08/23 08:45 Urine Test NEGATIVE Airway Mallampati Class: II TM Dist: >3cm Neck ROM: Full Loose/Missing/Broken Teeth: No Heart: rrr Lungs: clear Assessment and Plan Final Anesthetic Review Family History of Problems with Anesthesia: No History of Problems with Anesthesia: No NPO: Yes ASA Class: II Final Preanesthetic Review: No Changes in Pt Med Stat, Meds/Allgs Chart Reviewed, Consent Obtained/Reviewed and Anes Risks/Benef Reviewed Patient Risk: Intermediate Procedure Risk: Low Anesthetic Plan Anesthetic Plan: GA Disposition: Standard PACU
--- NOTE | 2023-08-08 10:50 | MHC.SHP ---
Pre-Procedural Eval Section A - 24 Hr Update-Section A only Date of Service: 08/08/23 The patient is an INPATIENT: No Changes since office visit: No Cold of Flu in the past 2 weeks, No New Medical Problems, No Changes in Medication and No Patient answered all questions The patient has been examined within 24 hours of the surgical procedure. The History & Physical has been completed within 30 days and I have reviewed it.: Yes Section B - Complete if H&P > 30 days Chief Complaint: Other hemorrhoids Allergies: Allergies Allergy/AdvReac Type Severity Reaction Status Date / Time quetiapine [From SEROQUEL] Allergy Severe ANAPHYLAXIS Verified 08/08/23 08:50 oxycodone [From PERCOCET] AdvReac Unknown tachycardia, Verified 08/08/23 08:50 sweating Plan I have reviewed the history and physical and performed a pertinent physical examination on my patient. No changes have occurred unless specified. Time Spent With Patient Time: Total time managing care of this patient today ____ minutes.
--- NOTE | 2023-08-08 11:14 | PC.NURSE ---
pt noted to have allergic reaction after cefotetan totally infused. itchy eyes and hive noted above left eye. anesthesia made aware and surgeon as well. added to her allergy list. cold cloth applied to eyes/forehead. no problems breathing
--- NOTE | 2023-08-08 11:21 | PC.NURSE ---
ok to proceed since no breathing problems noted.
--- NOTE | 2023-08-08 12:02 | P.OP_ITS ---
Operative Note Operative Note Date of Service: 08/08/23 Narrative: Preop diagnosis: Internal external hemorrhoids with pain and bleeding Postop diagnosis: The same Procedure: Exam under anesthesia hemorrhoidectomy x2 columns Surgeon: Elijah Shearer MD The patient is a 27-year-old female with a long history of hemorrhoids with frequent pain and bleeding. She therefore wanted to proceed with hemorrhoidectomy. She understood the technique of the procedure as well as the risks, benefits, and alternatives. She was brought to the operating room. She was placed in prone frannie-knife position under general anesthesia via endotracheal tube. The buttocks were retracted with wide tape laterally. The perianal area was prepped and draped in the usual sterile fashion. A surgical time-out was done. The patient received Cefotan 2 g IV preoperatively . I infiltrated the perianal area with lidocaine 1%. Examination of the anal orifice revealed external hemorrhoids on both the left and the right side mostly on the posterior aspect. I inserted the Sarina De Paz retractor. I examined the anal canal circumferentially. Again these hemorrhoidal columns were seen and were noted to be some mix of internal external. I applied a Farley grasper on the hemorrhoidal column on the left to retract this. I made a nqygqz-hc-nvobl stitch at this pedicle using chromic 3-0. I made an incision around this hemorrhoidal column to the perianal skin using a blade 15. I excised this hemorrhoidal column above the plane of the sphincters along this incision with Metzenbaum scissors. . I closed the incision with a running chromic 3-0 stitch. Additional hemostatic fegeyy-yj-vaesl sutures were placed for oozing areas The procedure was duplicated on the hemorrhoidal column on the right. Again the hemorrhoidal column was retracted with a Farley clamp. I applied a fig nml-lc-pukll stitch at the pedicle. I made an incision around this hemorrhoidal column to the perianal skin blade 15 and excised this above the plane of sphincters using scissors. I closed the incision with a running chromic 3-0 stitch. Hemostasis was achieved on oozing areas with additional ozrrei-iz-ohyop sutures Once hemostasis was confirmed, I infiltrated the perianal area with Marcaine 0 .5% for postop analgesia. A rolled Gelfoam was placed into the anal canal for additional hemostasis The procedure was then completed The patient tolerated procedure well. There were no immediate complications. Initial final counts of sponges and instruments were correct. Estimated blood loss was about 50 cc. The patient was extubated without difficulty and transferred to the recovery room with stable vital signs.
[2023-08-08] MEDS: fentaNYL citrate/PF 100 MCG/2 ML VIAL 25 MCG IVPUSH ×3 (12:35→12:45)
[2023-08-08] MEDS: ondansetron HCL 4 MG/2 ML VIAL IVPUSH (13:32)
== END 2023-08-08 14:30 | disposition home or self-care (01) ==
PROVIDERS: Nurse Practitioner; Visit Provider Surgery
PROC: (CPT 46260; principal; 2023-08-08 10:40)
DX: K64.8 Other hemorrhoids (principal); K64.4 Residual hemorrhoidal skin tags; K76.0 Fatty (change of) liver, not elsewhere classified; K21.9 Gastro-esophageal reflux disease without esophagitis; E28.2 Polycystic ovarian syndrome; N80.9 Endometriosis, unspecified; Z97.5 Presence of (intrauterine) contraceptive device; Z79.899 Other long term (current) drug therapy; Z88.5 Allergy status to narcotic agent; Z88.8 Allergy status to other drugs, medicaments and biological substances; Z98.84 Bariatric surgery status
CPT/HCPCS: 46260; 81025; 88304; J0131; J0330; J0665; J1100; J1200; J2250; J2405; J2704; J3010

== ENCOUNTER → 2023-08-08 08:34 | Outpatient (BNV) | payer OTHER, SELFPAY | PROVIDERS: Visit Provider Surgery | DX: K64.8 Other hemorrhoids (principal) | CPT/HCPCS: 46260 ==

== ENCOUNTER → 2023-08-25 15:49 | Outpatient (BNVA) | payer OTHER, SELFPAY | PROVIDERS: Visit Provider Surgery ==

== ENCOUNTER 2023-08-28 08:56 | Outpatient (AMB) | payer OTHER, SELFPAY ==
--- NOTE | 2023-08-28 08:59 | MHC.OFFVIS ---
Intake Vital Signs 08/28/23 09:07 Weight 160 lb BP 105/58 L Blood Pressure Location Rt brachial Position Sitting Pulse 82 Intake Visit Reasons: status post EUA hemorrhoidectomy Intake Note: This patient presents for a post-op assessment status post hemorrhoidectomy. Patient c/o; pain. No longer taking rx pain meds. Asset Protection Manager Required: No Accompanied by: Self / Same As Patient Allergies quetiapine [From SEROQUEL] Allergy (Severe, Verified 08/28/23 09:06) ANAPHYLAXIS cefotetan Allergy (Verified 08/28/23 09:06) Hives oxycodone [From PERCOCET] Adverse Reaction (Unknown, Verified 08/28/23 09:06) tachycardia, sweating HPI status post EUA hemorrhoidectomy HPI Details She underwent hemorrhoidectomy x2 columns last 08/08/2023 he is here for a postop visit. She denies any significant complaints. She admits to having significant pain the 1st 1-2 weeks postop. She feels much better now [facility] Medical History Hemorrhoids with complication Steatosis, liver History of anemia PTSD (post-traumatic stress disorder) Depression Migraines Screen for STD (sexually transmitted disease) Abnormal uterine bleeding (AUB) Anxiety GERD (gastroesophageal reflux disease) Morbid obesity Encounter for IUD removal Malpositioned IUD PCOS (polycystic ovarian syndrome) Endometriosis No known health problems Surgical History History of hemorrhoidectomy (~08/08/23) S/P laparoscopic sleeve gastrectomy Hx of wisdom tooth extraction Family History Mother Anemia Asthma Sister Anemia Maternal Grandmother Stroke Asthma Family/Other Heart attack Brother Asthma Maternal Aunt Asthma Paternal Grandfather Diabetes Paternal Grandmother Dementia Father No problems noted. Social History Household Members: Significant Other Housing: Apartment Are you a primary healthcare account manager to a significant other at home: No Do you presently have visiting nurse or other home services: No Alcohol intake: current Alcohol intake frequency: holidays/special occasions only Patient Tobacco Use Status: Never used Tobacco Substance Use Type: Marijuana service: No Current occupational status: employed Female Reproductive History Menstrual Age of Menarche: 9 Review of Systems Const Denies chills and Denies fever(s) Card Denies chest pain, Denies dyspnea and Denies dyspnea on exertion Resp Denies cough, Denies dyspnea and Denies dyspnea on exertion GI Denies hematochezia and Denies change in bowel habits Denies hematuria Musc Denies back pain and Denies limited range of motion Neuro Denies focal weakness and Denies convulsions Psych Denies depression and Denies mood swings Physical Exam Const General: comfortable and no acute distress GI Other: Hemorrhoidectomy site healing well, some residual edema, no induration, no discharge, no cellulitis Assessment & Plan Assessment & Plan (1) Hemorrhoids with complication: Code(s): K64.8 - Other hemorrhoids Plan: Status post hemorrhoidectomy. She is doing well postoperatively. She is to continue doing hot Sitz baths or warm soaks to the area. I advised her on avoiding straining and constipation. Coding Level of Care Code Global (27895) Diagnoses Hemorrhoids with complication K64.8
[2023-08-28 09:07] VITALS: BP 105/58; PULSE 82
== END 2023-08-28 09:09 | disposition home or self-care (01) ==
PROVIDERS: Visit Provider Surgery
DX: K64.8 Other hemorrhoids (principal)
CPT/HCPCS: 99024

== ENCOUNTER → 2023-08-28 08:56 | Outpatient (BNVA) | payer OTHER, SELFPAY | PROVIDERS: Visit Provider Surgery | DX: Z48.815 Encounter for surgical aftercare following surgery on the digestive system (principal) | CPT/HCPCS: 99212 ==

== ENCOUNTER 2023-09-10 09:06 | Emergency (ER) | payer OTHER, SELFPAY ==
--- NOTE | ~2023-09-10 | CT_ITS ---
EXAMINATION: CT HEAD WITHOUT CONTRAST CLINICAL INFORMATION: Posterior headaches for 2 weeks. COMPARISON: None. TECHNIQUE: Contiguous axial imaging was performed from the skullbase to vertex without intravenous administration of contrast. This CT examination was performed using dose optimization techniques as appropriate, variously including the following: *Automated exposure control *Adjustment of mA and/or kV according to patient size (this includes techniques or standardized protocols for targeted exams where dose is matched to indication/reason for exam; i.e. extremities or head) *Use of iterative reconstruction technique DLP: 591 mGy-cm. FINDINGS: There is no evidence of acute intracranial hemorrhage or territorial infarction. No abnormal mass effect or midline shift is seen. [place] to white matter differentiation is well preserved. Small 4 mm pineal cyst noted. The ventricles are normal in size. No extra-axial fluid collections are identified. There is question as to whether the cerebellar tonsils are low-lying at the craniovertebral junction, otherwise not fully included in the imaging [id number]. There is no abnormal attenuation within the brain parenchyma. The osseous structures and soft tissues are normal. The mastoid air cells and visualized portions of the paranasal sinuses are well aerated. CT/CT head/brain wo IV con IMPRESSION: No acute intracranial pathology. 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 A follow-up MRI of the brain without and with contrast could be obtained for further assessment.
[2023-09-10 09:25] VITALS: BP 109/78; PULSE 80; RESP 18; TEMP 37.1; O2SAT 100; BMI 28.3
--- NOTE | 2023-09-10 10:18 | PC.NURSE ---
pt a&ox4, vss, pt reporting 8 migraine w photosensitivity x 3 days, hx of migraines - typically resolve w rest/tylenol/ibuprofen but hasn't been helping. also reports increased forgetfulness post of her daughter ~15 months ago. pt pending ED provider.
[2023-09-10 10:27] LABS: UPreg QC Valid YES; Urine Pregnancy NEGATIVE (NEGATIVE)
--- NOTE | 2023-09-10 10:35 | ED_ITS ---
HPI - Headache General Chief Complaint: Headache Stated Complaint: Headache Blurred Vision Time Seen by Provider: 09/10/23 10:29 Source: patient, RN notes reviewed and old records reviewed Mode of arrival: ambulatory Limitations: no limitations History of Present Illness HPI Narrative: 27-year-old female with pmhx significant for PCOS, endometriosis, anemia, anxiety, GERD presents to the ED today for evaluation of headache x2 weeks. Reports a history of headaches however notes an acute change while at work yesterday. Her headache worsened causing her to go to the break room and take Motrin. She woke up this morning with continued pain. Pain begins occipitally and radiates frontally. Endorses an hour of blurred vision yesterday which resolved after an hour. Reports 8/10 pain at present. Associated photophobia. She has been taking Motrin every 4 hours at home for the last 2 weeks without relief. Admits her headaches have never lasted this long before. Denies fever, chills, dizziness, double vision, vision loss, neck pain, chest pain, palpitations, nausea or vomiting. Denies injury or trauma to the head. Denies history of HTN. Related Data Home Medications Medication Instructions Recorded Confirmed etonogestrel 68 mg subdermal 68 mg subdermal CONT 06/11/23 08/08/23 implant (Nexplanon) Previous Rx's Medication Instructions Recorded hydroxyzine HCl 25 mg tablet 25 mg PO TID PRN anxiety #20 tabs 04/10/23 docusate sodium 100 mg capsule 100 mg PO BID #60 caps 08/08/23 (Colace) ibuprofen 600 mg tablet 600 mg PO Q6H PRN pain #30 tabs 08/08/23 ahsildtybi-zifojcnooypux-inthiqsw 1 cap PO Q8H PRN pain (scale score 09/10/23 50 mg-300 mg-40 mg capsule 7-10) #5 caps (Fioricet) Allergies Allergy/AdvReac Type Severity Reaction Status Date / Time quetiapine [From SEROQUEL] Allergy Severe ANAPHYLAXIS Verified 08/28/23 09:06 cefotetan Allergy Hives Verified 08/28/23 09:06 oxycodone [From PERCOCET] AdvReac Unknown tachycardia, Verified 08/28/23 09:06 sweating Review of Systems 2 Review of Systems: Constitutional: No fever, chills, fatigue, night sweats, weight changes ENT/Mouth: No ear pain, hearing loss, nasal congestion, sinus pain, rhinorrhea, sore throat Eyes: No eye pain, swelling, redness, vision changes, discharge Cardio: No chest pain, palpitations, MUELLER, orthopnea, peripheral edema Pulm: No SOB, cough, sputum, wheezing, dyspnea, hemoptysis GI: No nausea, vomiting, hematemesis, abdominal pain, diarrhea, constipation, hematochezia, melena : No irregular bleeding, dysuria, frequency, urgency, hesitancy, hematuria, flank pain, urinary flow changes, urinary incontinence or retention MSK: No back pain, neck pain, joint pain, myalgias Skin: No lesions, rashes Neuro: No weakness, numbness, paresthesias, LOC, dizziness, +headache, + photophobia Psych: No anxiety/panic, depression, SI/HI, AH/VH All other systems reviewed and are negative. Eyes: Eyes: Reports photophobia PMFSH Past Medical History Attestation statement: The following information was validated with the patient. Source: old records reviewed and nursing notes reviewed Medical History Hemorrhoids with complication Steatosis, liver History of anemia PTSD (post-traumatic stress disorder) Depression Migraines Screen for STD (sexually transmitted disease) Abnormal uterine bleeding (AUB) Anxiety GERD (gastroesophageal reflux disease) Morbid obesity Encounter for IUD removal Malpositioned IUD PCOS (polycystic ovarian syndrome) Endometriosis No known health problems Surgical History History of hemorrhoidectomy (~08/08/23) S/P laparoscopic sleeve gastrectomy Hx of wisdom tooth extraction Family History Family History Mother Anemia Asthma Sister Anemia Maternal Grandmother Stroke Asthma Family/Other Heart attack Brother Asthma Maternal Aunt Asthma Paternal Grandfather Diabetes Paternal Grandmother Dementia Father No problems noted. Social History Social History Household Members: Significant Other Housing: Apartment Are you a primary healthcare representative to a significant other at home: No Do you presently have visiting nurse or other home services: No Alcohol intake: current Alcohol intake frequency: holidays/special occasions only Patient Tobacco Use Status: Never used Tobacco Smoked in Last 30 Days: No Use of substances other than those prescribed or required for medical reasons: Yes Substance Use Type: Marijuana Advance Directives: No Advance Directives Information Provided: No Patient : No service: No Current occupational status: employed Physical Exam 2 Vital Signs: Vital Signs: Last Vital Signs Temp 97.5 F 09/10/23 12:07 Pulse 86 09/10/23 12:07 Resp 18 09/10/23 12:07 BP 108/68 09/10/23 12:07 Pulse Ox 100 09/10/23 12:07 O2 Del Method Room Air 09/10/23 12:07 BMI result Body Mass Index 28.3 Vital signs stable, afebrile Const: Other: + lying comfortably on exam bed with lig hts off due to photophobia General: cooperative, healthy appearing, comfortable and no acute distress Orientation/consciousness: patient oriented x3 Limitations: no limitations HEENT: Head: Yes normal to inspection, Yes No palpable skull fracture present, Yes normocephalic, Yes atraumatic, No scalp tenderness and No Temporal artery tenderness present Ears: hearing grossly normal bilaterally, external ears normal, TM's normal bilaterally, EAC's normal, mastoids normal and no periauricular adenopathy Face and sinus: Yes sinuses nontender Eyes: General: appearance normal, both eyes and all related structures C onjunctivae: conjunctivae normal Sclerae: sclerae normal Pupils: Equal, round and reactive pupils present Direct Ophthalmoscopy: photophobia Neck: Other: no nuchal rigidity or meningeal signs Neck: Yes normal visual inspection, Yes full ROM and Yes no lymphadenopathy Resp: Effort & Inspection: normal respiratory effort and able to speak in complete sentences Auscultation: clear to auscultation bilaterally Cardio: Rate: regular rate Rhythm: regular rhythm Skin: General skin exam: no rashes or lesions noted Neuro: Other: Strength 5/5 intact throughout. Sensation intact to light touch.? Neurovascular intact distally.? General: patient oriented x3, gait normal, moves all extremities and no focal motor deficits Cranial nerves: Yes Equal, round and reactive pupils present Gait exam (Neuro): Normal gait present Motor exam (neuro): 5/5 motor strength present throughout and Pronator motor function not present C oordination: scqijo-qs-nrrp test normal, wdyg-ap-etth test normal and Normal rapid alternating movements of the distal upper extremity present (Neuro) P upils: Normal pupillary reactivity/response: bilateral Course Course Course Narrative: 1145-- CBC without leukocytosis. Chronic microcytic anemia, baseline when compared to priors. Chemistry without acute electrolyte abnormality requiring intervention. urine preg negative. CT head/brain does no demonstrate acute intracranial hemorrhage or infarct. 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 Radiologist stating MRI could be obtained to further investigate. > discussed these findings with my attending physician, Dr. Saleh. It is unlikely that this possible inferior cerebellar tonsillar ectopic is the cause of patient's migraine. If she does have a chiari malformation of some sort, it is very minor. Recommends follow up outpatient. 1202-- on re-evaluation, patient report complete resolution of headache after receiving Reglan, Toradol and Benadryl. Discussed all investigations with patient. Informed patient of incidental finding on imaging. I advised her to follow-up with either her primary care provider or a neurologist for further investigation/imaging. She verbalizes understanding however states that she does not have a primary care provider. I will provide her with a referral to both PCP and Neurology. Patient has remained stable throughout ED visit today. Discussed worrisome signs and symptoms and when to return to the ED. All questions answered at this time. Patient is agreeable with disposition and stable for discharge. Medications Administered Discontinued Medications Generic Name Dose Route Start Last Admin Trade Name Freq PRN Reason Stop Dose Admin Diphenhydramine HCl 25 mg 09/10/23 10:36 09/10/23 11:03 Diphenhydramine Hcl 50 Mg/Ml Vial IVPUSH 09/10/23 10:37 25 mg ONCE ONE Administration Ketorolac Tromethamine 30 mg 09/10/23 10:38 09/10/23 11:04 Ketorolac Tromethamine 30 Mg/Ml Vial IVPUSH 09/10/23 10:39 30 mg ONCE ONE Administration Metoclopramide HCl 10 mg 09/10/23 10:36 09/10/23 11:07 Metoclopramide Hcl 10 Mg/2 Ml Vial IVPUSH 09/10/23 10:37 10 mg ONCE ONE Administration Medical Decision Making Medical Decision Making MDM Narrative: 27-year-old female with pmhx significant for PCOS, endometriosis, anemia, anxiety, GERD presents to the ED today for evaluation of headache x2 weeks. Vital signs stable, afebrile. She is nontoxic-appearing and in no acute distress. Lying on the stretcher with the lights off due to photophobia. No palpable temporal aa or scalp tenderness. Exam nonfocal. PERRLA. Cerebellum intact. Ambulating with steady gait. Differential diagnosis includes headache, migraine, complex migraine, electrolyte abnormality, anemia. Unlikely GCA, trigeminal neuralgia, ICH, CVA/TIA, cerebellar stroke. Plan for basic labs, imaging, pain control and re-evaluation. Differential Diagnosis Differential Diagnoses: The differential diagnosis associated with the presentation includes As above Admission/Observation Not indicated Lab Data [facility] Lab Attestation statement: I reviewed the patient's lab results. As above 09/10/23 10:56 09/10/23 10:56 Labs: Lab Results 09/10/23 09/10/23 09/10/23 Range/Units 10:12 10:56 12:12 WBC 4.4 L (4.8-10.8) X10*3/uL RBC 4.13 L (4.20-5.50) X10*6/uL Hgb 10.1 L (12.0-16.0) g/dl Hct 32.2 L (37.0-47.0) % MCV 78.0 L (80.0-98.0) fL MCH 24.5 L (27.0-33.0) pg MCHC 31.4 (31.0-35.0) g/dl RDW 15.2 (11.0-16.0) % Plt Count 240 (160-400) X10*3/uL MPV 10.0 (9.4-12.3) fL Immature Gran % (Auto) 0.0 (0.0-0.4) % Neut % (Auto) 54.8 (45-73) % Lymph % (Auto) 38.1 (20-40) % [place] % (Auto) 5.3 (2-11) % Eos % (Auto) 1.6 (0-4) % Baso % (Auto) 0.2 (0-2) % Lymph # (Auto) 1.7 (1.2-4.9) X10*3/uL [place] # (Auto) 0.2 (0.1-1.2) X10*3/uL Eos # (Auto) 0.1 (0.0-0.4) X10*3/uL Baso # (Auto) 0.0 (0.0-0.2) X10*3/uL Abs Immat Gran (auto) 0.00 (0.00-0.03) X10*3/uL Absolute Neuts (auto) 2.4 (2.0-8.3) x10*3/uL Absolute Nucleated RBC 0.000 (0.0-0.012) X10*3/uL Nucleated RBC % (auto) 0.0 (0.0-0.2) /100WBC Sodium 139 (135-145) mmol/L Potassium 4.4 (3.3-5.1) mmol/L Chloride 108 (96-108) mmol/L Carbon Dioxide 27 (22-29) mmol/L Anion Gap 8 L (12-20) BUN 13 (9-16) mg/dL Creatinine 0.96 (0.5-1.4) mg/dL Estim Creat Clear Calc 83.2 Estimated GFR > 60 Random Glucose 94 (60-115) mg/dL Calcium 9.5 (8.4-10.2) mg/dL Magnesium 1.9 (1.6-2.6) mg/dL Total Bilirubin 0.4 (0.0-1.0) mg/dL AST 13 (5-31) U/L ALT 11 (0-31) U/L Alkaline Phosphatase 52 (39-117) U/L Total Protein 7.6 (6.5-8.0) g/dL Albumin 4.2 (3.5-5.0) g/dL Urine Test NEGATIVE (NEGATIVE) Influenza Type A (PCR) NEGATIVE (Negative) Influenza Type B (PCR) NEGATIVE (Negative) RSV RNA Qual (PCR) NEGATIVE (Negative) SARS-CoV-2 RNA (RT-PCR) NEGATIVE (Negative) Independent Interpretation I performed an independent interpretation of an: CT Scan Interpretation: I have personally reviewed CT head/brain and agree with radiologist's interpretation. Radiology Impression Discussion of test interpretation with radiology: I have reviewed the radiologist's reading. Radiologist Impression: EXAMINATION: CT HEAD WITHOUT CONTRAST CLINICAL INFORMATION: Posterior headaches for 2 weeks. COMPARISON: None. TECHNIQUE: Contiguous axial imaging was performed from the skullbase to vertex without intravenous administration of contrast. This CT examination was performed using dose optimization techniques as appropriate, variously including the following: *Automated exposure control *Adjustment of mA and/or kV according to patient size (this includes techniques or standardized protocols for targeted exams where dose is matched to indication/reason for exam; i.e. extremities or head) *Use of iterative reconstruction technique DLP: 591 mGy-cm. FINDINGS: There is no evidence of acute intracranial hemorrhage or territorial infarction. No abnormal mass effect or midline shift is seen. [place] to white matter differentiation is well preserved. Small 4 mm pineal cyst noted. The ventricles are normal in size. No extra-axial fluid collections are identified. There is question as to whether the cerebellar tonsils are low-lying at the craniovertebral junction, otherwise not fully included in the imaging [id number]. There is no abnormal attenuation within the brain parenchyma. The osseous structures and soft tissues are normal. The mastoid air cells and visualized portions of the paranasal sinuses are well aerated. CT/CT head/brain wo IV con IMPRESSION: No acute intracranial pathology. 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 A follow-up MRI of the brain without and with contrast could be obtained for further assessment. External Record Review External record reviewed: Inpatient record, Office record, Outpatient record, Prior outpatient labs, Prior outpatient radiology, Primary care record and Outside ED record Prescription Management I considered prescription management with: Pain Medication and Other (Zofran) Chronic Conditions Patient?s care impacted by: Other (Headaches) Social Determinants Patient?s care significantly limited by Social Determinants of Health including: Other Social Determinant of Health Discharge Plan Discharge Clinical Impression: Migraine Patient Disposition: Home, Self-Care Instructions: Migraine Headache (ED) Additional Instructions: You were seen in the ED today for evaluation of headache. Your headache improved with IV medications and fluids. Your lab work today is reassuring. The CT of your head/brain did not show acute hemorrhage or infarct. As discussed, there is an incidental finding on imaging of potential inferior cerebellar tonsillar extopia . You will need to follow up with either PCP or neurologist as they are recommending MRI w/ and w/o contrast to further investigate. You have been provided with a referral to both PCP and neurologist. CALL THEM TO MAKE AN APPOINTMENT. THEY WILL NOT CALL YOU. Fioricet is a pain medication that has been sent to your pharmacy for you to take for breakthrough headaches. It has recommended not to take this more than 3 days in a row as it can lead to rebound headache. Please return with new or worsening symptoms. In the case of an emergency call 911. Prescriptions: New dovlwsafqy-couajmahlustd-lttr [Fioricet] 50-300-40 mg capsule 1 cap PO Q8H PRN (Reason: pain (scale score 7-10)) Qty: 5 0RF No Action Nexplanon 68 mg Implant 68 mg SUBDERMAL CONT docusate sodium [Colace] 100 mg capsule 100 mg PO BID Qty: 60 2RF ibuprofen 600 mg tablet 600 mg PO Q6H PRN (Reason: pain) Qty: 30 0RF hydroxyzine HCl 25 mg tablet 25 mg PO TID PRN (Reason: anxiety) Qty: 20 0RF Referrals: [facility] [place] Family Medicine [Provider Group] [facility] [place] Primary CareJose [Provider Group] [facility] [place] Primary CareSharifa [Provider Group] [facility] [place] Neuro/Sleep [Provider Group] Stand Alone Forms: Work/School Release Interventions: ED Discharge Assessment Last Done: 09/10/23 12:07 Discharge Date/Time: 09/10/23 12:21
[2023-09-10 11:02] LABS: MANUAL DIFF FLAG NO
[2023-09-10] MEDS: diphenhydrAMINE HCL 50 MG/ML VIAL 25 MG IVPUSH (11:03)
[2023-09-10 11:04] LABS: Basophils Percent Auto 0.2 % (0-2); Eosinophils Absolute Auto 0.1 X10*3/uL (0.0-0.4); Eosinophils Percent Auto 1.6 % (0-4); Hematocrit 32.2 % (37.0-47.0); Hemoglobin 10.1 g/dl (12.0-16.0); Lymphocytes Absolute Auto 1.7 X10*3/uL (1.2-4.9); Lymphocytes Percent Auto 38.1 % (20-40); Mean Corpuscular HGB Conc 31.4 g/dl (31.0-35.0); Mean Corpuscular Hemoglobin 24.5 pg (27.0-33.0); Monocytes Absolute Auto 0.2 X10*3/uL (0.1-1.2); Monocytes Percent Auto 5.3 % (2-11); Neutrophils Absolute Auto 2.4 x10*3/uL (2.0-8.3); Neutrophils Percent Auto 54.8 % (45-73); Platelet Count 240 X10*3/uL (160-400); Red Blood Count 4.13 X10*6/uL (4.20-5.50); Red Cell Distribution Width 15.2 % (11.0-16.0); White Blood Count 4.4 X10*3/uL (4.8-10.8)
[2023-09-10] MEDS: Ketorolac Tromethamine 30 MG/ML VIAL IVPUSH (11:04)
[2023-09-10] MEDS: Metoclopramide HCl 10 MG/2 ML VIAL IVPUSH (11:07)
[2023-09-10 11:17] LABS: Alanine Aminotransferase 11 U/L (0-31); Albumin Level 4.2 g/dL (3.5-5.0); Alkaline Phosphatase 52 U/L (39-117); Anion Gap 8 (12-20); Aspartate Amino Transferase 13 U/L (5-31); Bilirubin Total 0.4 mg/dL (0.0-1.0); Blood Urea Nitrogen 13 mg/dL (9-16); Calcium 9.5 mg/dL (8.4-10.2); Carbon Dioxide 27 mmol/L (22-29); Chloride 108 mmol/L (96-108); Creatinine Clr Calc Pharmacy 83.2; Estimated Glomerular Filt Rate > 60; Glucose Random 94 mg/dL (60-115); Magnesium 1.9 mg/dL (1.6-2.6); Potassium 4.4 mmol/L (3.3-5.1); Sodium 139 mmol/L (135-145); Total Protein 7.6 g/dL (6.5-8.0)
[2023-09-10 11:59] VITALS: BP 108/68; PULSE 86; RESP 18; TEMP 36.4; O2SAT 100
[2023-09-10 12:07] VITALS: BP 108/68; PULSE 86; RESP 18; TEMP 36.4; O2SAT 100
[2023-09-10 12:51] LABS: Influenza A PCR NEGATIVE (Negative); Influenza B PCR NEGATIVE (Negative); Resp Syncy Virus RNA Qual PCR NEGATIVE (Negative); SARS COV2 PCR INHOUSE NEGATIVE (Negative)
== END 2023-09-10 12:21 | disposition home or self-care (01) ==
PROVIDERS: Physician Assistant Medical; Emergency Provider Emergency Medicine Emergency Medical Services
DX: G43.909 Migraine, unspecified, not intractable, without status migrainosus (principal); E28.2 Polycystic ovarian syndrome; K21.9 Gastro-esophageal reflux disease without esophagitis
CPT/HCPCS: 0241U; 36415; 70450; 80053; 81025; 83735; 85025; 96374; 96375; 99284; J1200; J1885; J2765

== ENCOUNTER 2023-11-04 16:48 | Emergency (ER) | payer OTHER, SELFPAY ==
--- NOTE | ~2023-11-04 | XR_ITS ---
EXAMINATION: XR CHEST 2 VIEW CLINICAL INFORMATION: Central chest pain COMPARISON: 02/16/2021 TECHNIQUE: PA and lateral views of the chest obtained. FINDINGS: The lungs are clear. There are no pleural effusions. The cardiomediastinal silhouette is normal. No rib fracture, bone lesion or pneumothorax is evident. XR/XR chest 2V IMPRESSION: No acute cardiopulmonary disease.
--- NOTE | 2023-11-04 16:50 | ECG_ITS ---
Test Reason : CHEST PAIN Blood Pressure : / mmHG Vent. Rate : 086 BPM Atrial Rate : 086 BPM P-R Int : 108 ms QRS Dur : 068 ms QT Int : 370 ms P-R-T Axes : 044 038 025 degrees QTc Int : 442 ms Sinus rhythm with short HI Otherwise normal ECG When compared with ECG of 10-APR-2023 10:55, No significant change was found Referred By: Felicia Raman Electronically Signed By:MEGAN WELDON MD
[2023-11-04 17:08] VITALS: BP 123/70; PULSE 77; RESP 18; TEMP 36.8; O2SAT 100; BMI 29.2
--- NOTE | 2023-11-04 17:09 | ED_ITS ---
HPI - Chest Pain General Chief Complaint: Chest Pain Stated Complaint: Chest pain Related Data Home Medications ?Medication ?Instructions ?Recorded ?Confirmed etonogestrel 68 mg subdermal 68 mg subdermal CONT 06/11/23 09/23/23 implant (Nexplanon) Previous Rx's ?Medication ?Instructions ?Recorded hydroxyzine HCl 25 mg tablet 25 mg PO TID PRN anxiety #20 tabs 04/10/23 docusate sodium 100 mg capsule 100 mg PO BID #60 caps 08/08/23 (Colace) ibuprofen 600 mg tablet 600 mg PO Q6H PRN pain #30 tabs 08/08/23 jhvodxxffg-puiajfmdzrehi-bsyiwqmn 1 cap PO Q8H PRN pain (scale score 09/10/23 50 mg-300 mg-40 mg capsule 7-10) #5 caps (Fioricet) Allergies Allergy/AdvReac Type Severity Reaction Status Date / Time quetiapine [From SEROQUEL] Allergy Severe ANAPHYLAXIS Verified 11/04/23 17:11 cefotetan Allergy Hives Verified 11/04/23 17:11 oxycodone [From PERCOCET] AdvReac Unknown tachycardia, Verified 11/04/23 17:11 sweating PMFSH Past Medical History Medical History Hemorrhoids with complication Steatosis, liver History of anemia PTSD (post-traumatic stress disorder) Depression Migraines Screen for STD (sexually transmitted disease) Abnormal uterine bleeding (AUB) Anxiety GERD (gastroesophageal reflux disease) Morbid obesity Encounter for IUD removal Malpositioned IUD PCOS (polycystic ovarian syndrome) Endometriosis No known health problems Surgical History History of hemorrhoidectomy (~08/08/23) S/P laparoscopic sleeve gastrectomy Hx of wisdom tooth extraction Family History Family History Mother Anemia Asthma Sister Anemia Maternal Grandmother Stroke Asthma Family/Other Heart attack Brother Asthma Maternal Aunt Asthma Paternal Grandfather Diabetes Paternal Grandmother Dementia Father No problems noted. Social History Social History Household Members: Significant Other Housing: Apartment Are you a primary hospice spiritual care coordinator to a significant other at home: No Do you presently have visiting nurse or other home services: No Alcohol intake: current Alcohol intake frequency: holidays/special occasions only Patient Tobacco Use Status: Never used Tobacco Substance Use Type: Marijuana Advance Directives: No Advance Directives Information Provided: No service: No Current occupational status: employed Physical Exam 2 Vital Signs: Vital Signs: Last Vital Signs Temp 98.3 F 11/04/23 17:08 Pulse 77 11/04/23 17:08 Resp 18 11/04/23 17:08 BP 123/70 11/04/23 17:08 Pulse Ox 100 11/04/23 17:08 O2 Del Method Room Air 11/04/23 17:08 BMI result Body Mass Index 29.2 Course Course Course Narrative: This is a Rapid Medical Examination (RME) performed by Ole Raman PA-C in triage. Full HPI, ROS, assessment and treatment plan per primary provider in the Main ED. 28 yo female hx of PCOS, endometriosis, anemia, anxiety, GERD here for eval of substernal chest pressure x1.5 wks. no radiation. worse on exertion. no hx of MS or CAD. hx of anemia, states this feels feels similar. well appearing. rrr. lungs are cta b/l. no peripheral edema or jvd. Plan: labs, trop, ekg, cxr Reevaluation(s) Reevaluation #1: Patient left the ED without completing treatment. Medical Decision Making Lab Data 11/04/23 17:24 11/04/23 17:24 Labs: Lab Results 11/04/23 Range/Units 17:24 WBC 7.4 (4.8-10.8) X10*3/uL RBC 4.14 L (4.20-5.50) X10*6/uL Hgb 9.9 L (12.0-16.0) g/dl Hct 32.1 L (37.0-47.0) % MCV 77.5 L (80.0-98.0) fL MCH 23.9 L (27.0-33.0) pg MCHC 30.8 L (31.0-35.0) g/dl RDW 16.7 H (11.0-16.0) % Plt Count 298 (160-400) X10*3/uL MPV 11.4 (9.4-12.3) fL Immature Gran % (Auto) 0.1 (0.0-0.4) % Neut % (Auto) 66.7 (45-73) % Lymph % (Auto) 27.5 (20-40) % [place] % (Auto) 4.6 (2-11) % Eos % (Auto) 0.7 (0-4) % Baso % (Auto) 0.4 (0-2) % Lymph # (Auto) 2.0 (1.2-4.9) X10*3/uL [place] # (Auto) 0.3 (0.1-1.2) X10*3/uL Eos # (Auto) 0.1 (0.0-0.4) X10*3/uL Baso # (Auto) 0.0 (0.0-0.2) X10*3/uL Abs Immat Gran (auto) 0.01 (0.00-0.03) X10*3/uL Absolute Neuts (auto) 4.9 (2.0-8.3) x10*3/uL Absolute Nucleated RBC 0.000 (0.0-0.012) X10*3/uL Nucleated RBC % (auto) 0.0 (0.0-0.2) /100WBC Sodium 141 (135-145) mmol/L Potassium 4.2 (3.3-5.1) mmol/L Chloride 108 (96-108) mmol/L Carbon Dioxide 24 (22-29) mmol/L Anion Gap 13 (12-20) BUN 15 (9-16) mg/dL Creatinine 0.93 (0.5-1.4) mg/dL Estim Creat Clear Calc 86.4 Estimated GFR > 60 Random Glucose 99 (60-115) mg/dL Calcium 9.7 (8.4-10.2) mg/dL Magnesium 2.0 (1.6-2.6) mg/dL Total Bilirubin 0.3 (0.0-1.0) mg/dL AST 14 (5-31) U/L ALT 10 (0-31) U/L Alkaline Phosphatase 48 (39-117) U/L Troponin I High Sens < 2.7 (<3.5-17.0) ng/L Total Protein 7.8 (6.5-8.0) g/dL Albumin 4.3 (3.5-5.0) g/dL Lipase 27 (8-78) U/L Discharge Plan Discharge Clinical Impression: Chest pain Patient Disposition: Left W/O Completing Treatment Prescriptions: No Action Nexplanon 68 mg Implant 68 mg SUBDERMAL CONT docusate sodium [Colace] 100 mg capsule 100 mg PO BID Qty: 60 2RF ibuprofen 600 mg tablet 600 mg PO Q6H PRN (Reason: pain) Qty: 30 0RF vorpjiavfj-wquwlimorefvl-pcxu [Fioricet] 50-300-40 mg capsule 1 cap PO Q8H PRN (Reason: pain (scale score 7-10)) Qty: 5 0RF hydroxyzine HCl 25 mg tablet 25 mg PO TID PRN (Reason: anxiety) Qty: 20 0RF Discharge Date/Time: 11/04/23 20:04
[2023-11-04 17:28] LABS: MANUAL DIFF FLAG NO
[2023-11-04 17:33] LABS: Basophils Percent Auto 0.4 % (0-2); Eosinophils Absolute Auto 0.1 X10*3/uL (0.0-0.4); Eosinophils Percent Auto 0.7 % (0-4); Hematocrit 32.1 % (37.0-47.0); Hemoglobin 9.9 g/dl (12.0-16.0); Imm Gran Abs Auto 0.01 X10*3/uL (0.00-0.03); Imm Gran Pct Auto 0.1 % (0.0-0.4); Lymphocytes Percent Auto 27.5 % (20-40); Mean Corpuscular HGB Conc 30.8 g/dl (31.0-35.0); Mean Corpuscular Hemoglobin 23.9 pg (27.0-33.0); Mean Corpuscular Volume 77.5 fL (80.0-98.0); Mean Platelet Volume 11.4 fL (9.4-12.3); Monocytes Absolute Auto 0.3 X10*3/uL (0.1-1.2); Monocytes Percent Auto 4.6 % (2-11); Neutrophils Absolute Auto 4.9 x10*3/uL (2.0-8.3); Neutrophils Percent Auto 66.7 % (45-73); Platelet Count 298 X10*3/uL (160-400); Red Blood Count 4.14 X10*6/uL (4.20-5.50); Red Cell Distribution Width 16.7 % (11.0-16.0); White Blood Count 7.4 X10*3/uL (4.8-10.8)
[2023-11-04 17:55] LABS: Alanine Aminotransferase 10 U/L (0-31); Albumin Level 4.3 g/dL (3.5-5.0); Alkaline Phosphatase 48 U/L (39-117); Anion Gap 13 (12-20); Aspartate Amino Transferase 14 U/L (5-31); Bilirubin Total 0.3 mg/dL (0.0-1.0); Blood Urea Nitrogen 15 mg/dL (9-16); Calcium 9.7 mg/dL (8.4-10.2); Carbon Dioxide 24 mmol/L (22-29); Chloride 108 mmol/L (96-108); Creatinine Clr Calc Pharmacy 86.4; Estimated Glomerular Filt Rate > 60; Glucose Random 99 mg/dL (60-115); Lipase 27 U/L (8-78); Potassium 4.2 mmol/L (3.3-5.1); Sodium 141 mmol/L (135-145); Total Protein 7.8 g/dL (6.5-8.0)
[2023-11-04 18:01] LABS: Troponin-I High Sensitivity < 2.7 ng/L (<3.5-17.0)
== END 2023-11-04 20:04 | disposition left against medical advice (07) ==
PROVIDERS: Physician Assistant Medical; Emergency Provider Emergency Medicine
DX: R07.9 Chest pain, unspecified (principal); E28.2 Polycystic ovarian syndrome; K21.9 Gastro-esophageal reflux disease without esophagitis; D64.9 Anemia, unspecified
CPT/HCPCS: 36415; 71046; 80053; 83690; 83735; 84484; 85025; 93005; 99283

== ENCOUNTER → 2023-11-04 16:50 | Outpatient (BNV) | payer OTHER, SELFPAY | PROVIDERS: Emergency Provider Emergency Medicine; Visit Provider Internal Medicine Cardiovascular Disease | DX: R07.9 Chest pain, unspecified (principal) | CPT/HCPCS: 93010 ==

== ENCOUNTER 2024-04-28 13:13 | Outpatient (AMB) | payer OTHER, SELFPAY ==
--- NOTE | 2024-04-28 13:03 | MHC.OFFVISWM ---
VS Expanded 04/28/24 13:06 Height 5 ft 3 in Weight 160 lb BMI 28.3 Intake Visit Reasons: TV PO LSG 07/03/21 Allergies quetiapine [From SEROQUEL] Allergy (Severe, Verified 11/04/23 17:11) ANAPHYLAXIS cefotetan Allergy (Verified 11/04/23 17:11) Hives oxycodone [From PERCOCET] Adverse Reaction (Unknown, Verified 11/04/23 17:11) tachycardia, sweating HPI Comments Details: This?is a?28?yo female who is s/p LSG 07/03/2021. Presents for 2 year 10 month post op visit. Last known weight 154lbs in 09/2022, weight today 160lbs.? No complaints of nausea, emesis reflux, or constipation. Using cannabis to help her sleep but it causes her to eat a lot. Also just found out she is 5 weeks . Having some nausea in morning and evening. Present meal plan includes: taking Boost shakes, 250 felipa 20g all other shakes give her nausea PFSH Medical History Hemorrhoids with complication Steatosis, liver History of anemia PTSD (post-traumatic stress disorder) Depression Migraines Screen for STD (sexually transmitted disease) Abnormal uterine bleeding (AUB) Anxiety GERD (gastroesophageal reflux disease) Morbid obesity Encounter for IUD removal Malpositioned IUD PCOS (polycystic ovarian syndrome) Endometriosis No known health problems Surgical History History of hemorrhoidectomy (~08/08/23) S/P laparoscopic sleeve gastrectomy Hx of wisdom tooth extraction Family History Mother Anemia Asthma Sister Anemia Maternal Grandmother Stroke Asthma Family/Other Heart attack Brother Asthma Maternal Aunt Asthma Paternal Grandfather Diabetes Paternal Grandmother Dementia Father No problems noted. Social History Household Members: Significant Other Housing: Apartment Are you a primary career center director to a significant other at home: No Do you presently have visiting nurse or other home services: No Alcohol intake: current Alcohol intake frequency: holidays/special occasions only Patient Tobacco Use Status: Never used Tobacco Substance Use Type: Marijuana service: No Current occupational status: employed Female Reproductive History Menstrual Age of Menarche: 9 Telehealth Telehealth Telehealth Platform: Telephone Location of provider rendering services: other Location of patient: address on file Patient Identification confirmed using: Name, : Yes Telehealth method: voice only Patient verbally consented to treatment: Yes Patient verbally consented to billing insurance company: Yes Patient informed of any privacy concerns related to visit: Yes Minutes spent on Phone/Video with Pt.: 16 Assessment & Plan Assessment & Plan (1) Overweight: Code(s): E66.3 - Overweight Category: Medical (2) : Code(s): Z34.90 - Encounter for supervision of normal , unspecified, unspecified trimester Category: Medical (3) S/P laparoscopic sleeve gastrectomy: Comment: 07/03/21 Code(s): Z98.84 - Bariatric surgery status Category: Surgical Plan Discussed getting adequate protein with small portions of healthy carbs and fats. Emailed information handout. Labs ordered, will order once every trimester. Gave pt my cell phone # and encouraged her to reach out with any questions. RTC 3 months. I spent a total of 30 minutes reviewing/updating records, examining the patient and counseling the patient on weight management as detailed above. Orders: Orders Insulin Today E66.3 - Overweight, Z98.84 - Bariatric surgery status Comprehensive Met. Panel Today E66.3 - Overweight, Z98.84 - Bariatric surgery status Vitamin B12 and Folate Today E66.3 - Overweight, Z98.84 - Bariatric surgery status Zinc Today E66.3 - Overweight, Z98.84 - Bariatric surgery status Ferritin Today E66.3 - Overweight, Z98.84 - Bariatric surgery status Vitamin D 25-OH Total Today E66.3 - Overweight, Z98.84 - Bariatric surgery status Hemoglobin A1c Today E66.3 - Overweight, Z98.84 - Bariatric surgery status Complete Blood Count Auto Diff Today E66.3 - Overweight, Z98.84 - Bariatric surgery status Lipid Panel Today E66.3 - Overweight, Z98.84 - Bariatric surgery status IRON PROFILE Today E66.3 - Overweight, Z98.84 - Bariatric surgery status C Reactive Protein Today E66.3 - Overweight, Z98.84 - Bariatric surgery status Vitamin B1 Today E66.3 - Overweight, Z98.84 - Bariatric surgery status Vitamin A Today E66.3 - Overweight, Z98.84 - Bariatric surgery status TSH reflex Free T4 Today E66.3 - Overweight, Z98.84 - Bariatric surgery status
[2024-04-28 13:06] VITALS: BMI 28.3
== END 2024-04-28 13:28 | disposition home or self-care (01) ==
LOC: HO.HBS 13:13
PROVIDERS: Visit Provider Physician Assistant Surgical
DX: E66.3 Overweight (principal); Z68.28 Body mass index [BMI] 28.0-28.9, adult; Z98.84 Bariatric surgery status; Z34.90 Encounter for supervision of normal pregnancy, unspecified, unspecified trimester
CPT/HCPCS: 99214; G2211

== ENCOUNTER → 2024-04-28 13:13 | Outpatient (BNVA) | payer OTHER, SELFPAY | PROVIDERS: Visit Provider Physician Assistant Surgical ==

== ENCOUNTER 2024-06-17 09:43 | Outpatient (REF) | payer OTHER, SELFPAY ==
[2024-06-17 10:05] LABS: MANUAL DIFF FLAG NO
[2024-06-17 11:04] LABS: Basophils Percent Auto 0.3 % (0-2); Eosinophils Percent Auto 0.5 % (0-4); Hematocrit 31.3 % (37.0-47.0); Hemoglobin 9.9 g/dl (12.0-16.0); Imm Gran Abs Auto 0.02 X10*3/uL (0.00-0.03); Imm Gran Pct Auto 0.3 % (0.0-0.4); Lymphocytes Absolute Auto 1.7 X10*3/uL (1.2-4.9); Lymphocytes Percent Auto 22.4 % (20-40); Mean Corpuscular HGB Conc 31.6 g/dl (31.0-35.0); Mean Corpuscular Hemoglobin 25.2 pg (27.0-33.0); Mean Corpuscular Volume 79.6 fL (80.0-98.0); Mean Platelet Volume 10.8 fL (9.4-12.3); Monocytes Absolute Auto 0.3 X10*3/uL (0.1-1.2); Monocytes Percent Auto 4.4 % (2-11); Neutrophils Absolute Auto 5.4 x10*3/uL (2.0-8.3); Neutrophils Percent Auto 72.1 % (45-73); Platelet Count 284 X10*3/uL (160-400); Red Blood Count 3.93 X10*6/uL (4.20-5.50); Red Cell Distribution Width 16.3 % (11.0-16.0); White Blood Count 7.5 X10*3/uL (4.8-10.8)
[2024-06-17 11:14] LABS: Estimated Average Glucose 108 mg/dL; Hemoglobin A1C 88.9851 umol/L; Hemoglobin A1c % 5.4 % (<6.0); Total Hemoglobin (HGBA1C) 2481.3945 umol/L
[2024-06-17 11:24] LABS: Alanine Aminotransferase 9 U/L (0-31); Albumin Level 3.8 g/dL (3.5-5.0); Alkaline Phosphatase 40 U/L (39-117); Anion Gap 9 (12-20); Aspartate Amino Transferase 19 U/L (5-31); Bilirubin Total 0.2 mg/dL (0.0-1.0); Blood Urea Nitrogen 11 mg/dL (9-16); C Reactive Protein 0.43 mg/dL (< or = 0.50); Calcium 8.6 mg/dL (8.4-10.2); Carbon Dioxide 23 mmol/L (22-29); Chloride 108 mmol/L (96-108); Cholesterol 209 mg/dL (<200); Estimated Glomerular Filt Rate > 60; Glucose Random 100 mg/dL (60-115); HDL Cholesterol 72 mg/dL (>40); Iron 23 mcg/dL (30-160); LDL Cholesterol Calculated 124 mg/dL (<100); Percent Iron Saturation 7 % (15-50); Potassium 3.6 mmol/L (3.3-5.1); Sodium 136 mmol/L (135-145); Total Iron Binding Capacity 349 mcg/dL (228-428); Total Protein 7.3 g/dL (6.5-8.0); Triglycerides 69 mg/dL (<150); Unsaturated Iron Binding 326 ug/dL
[2024-06-17 11:46] LABS: Ferritin 8 ng/mL (10-122); Insulin 19 uU/mL (2-29); Vitamin D 25-OH Total 13.2 ng/mL (>30)
[2024-06-17 11:50] LABS: Folate 14.8 ng/mL (> or = 4.0); Vitamin B12 428 pg/mL (200-900)
[2024-06-20 20:28] LABS: Zinc 67 mcg/dL (60-130)
[2024-06-21 15:03] LABS: Vitamin B1 14 nmol/L (8-30)
[2024-06-22 01:18] LABS: Vitamin A 46 mcg/dL (38-98)
== END 2024-06-17 09:44 | disposition home or self-care (01) ==
LOC: HO.LAB 09:43
PROVIDERS: Visit Provider Physician Assistant Surgical
DX: E66.3 Overweight (principal); Z98.84 Bariatric surgery status
CPT/HCPCS: 36415; 80053; 80061; 82306; 82607; 82728; 82746; 83036; 83525; 83540; 84425; 84443; 84590; 84630; 85025; 86140

== ENCOUNTER → 2024-07-26 10:19 | Outpatient (BNVA) | payer OTHER, SELFPAY | PROVIDERS: Visit Provider Physician Assistant Surgical ==

== ENCOUNTER 2024-08-05 12:52 | Outpatient (AMB) | payer OTHER, SELFPAY ==
--- NOTE | 2024-08-05 12:39 | A.OFFVIS_ITS ---
VS Expanded 08/05/24 12:47 Height 5 ft 3 in Weight 172 lb BMI 30.5 Intake Visit Reasons: (TELEPHONE) PO LSG 07/03/21 (re/esther from 07/26/24 Allergies quetiapine [From SEROQUEL] Allergy (Severe, Verified 11/04/23 17:11) ANAPHYLAXIS cefotetan Allergy (Verified 11/04/23 17:11) Hives oxycodone [From PERCOCET] Adverse Reaction (Unknown, Verified 11/04/23 17:11) tachycardia, sweating ferumoxytol [From Feraheme] Adverse Reaction (Verified 06/21/24 15:10) Difficulty Breathing HPI Comments Details: This?is a?28?yo female who is s/p LSG 07/03/2021. Presents for 3 year 1 month. Currently in 2nd trimester of , due December 30. Weight at last visit in April 2024 was 160lbs; currently has a GI illness, difficult to eat/drink for the last 24 hours. She also had influenza recently. Prior to this nausea had improved. Present meal plan includes: taking Boost shakes, 250 felipa 20g will take 1-2 shakes a day and the rest whole foods taking a vitamin PFSH Medical History Hemorrhoids with complication Steatosis, liver History of anemia PTSD (post-traumatic stress disorder) Depression Migraines Screen for STD (sexually transmitted disease) Abnormal uterine bleeding (AUB) Anxiety GERD (gastroesophageal reflux disease) Morbid obesity Encounter for IUD removal Malpositioned IUD PCOS (polycystic ovarian syndrome) Endometriosis No known health problems Surgical History History of hemorrhoidectomy (~08/08/23) S/P laparoscopic sleeve gastrectomy Hx of wisdom tooth extraction Family History Mother Anemia Asthma Sister Anemia Maternal Grandmother Stroke Asthma Family/Other Heart attack Brother Asthma Maternal Aunt Asthma Paternal Grandfather Diabetes Paternal Grandmother Dementia Father No problems noted. Social History Household Members: Significant Other Housing: Apartment Are you a primary animal caretaker supervisor to a significant other at home: No Do you presently have visiting nurse or other home services: No Alcohol intake: current Alcohol intake frequency: holidays/special occasions only Patient Tobacco Use Status: Never used Tobacco Substance Use Type: Marijuana service: No Current occupational status: employed Female Reproductive History Menstrual Age of Menarche: 9 Telehealth Telehealth Telehealth Platform: Telephone Location of provider rendering services: other Location of patient: address on file Patient Identification confirmed using: Name, : Yes Telehealth method: voice only Patient verbally consented to treatment: Yes Patient verbally consented to billing insurance company: Yes Patient informed of any privacy concerns related to visit: Yes Minutes spent on Phone/Video with Pt.: 16 Assessment & Plan Assessment & Plan (1) : Code(s): Z34.90 - Encounter for supervision of normal , unspecified, unspecified trimester Category: Medical (2) S/P laparoscopic sleeve gastrectomy: Comment: 07/03/21 Code(s): Z98.84 - Bariatric surgery status Category: Surgical Plan Has gained 12lbs so far in . Labs reviewed, vit D supplemented previously, being followed for anemia with hematology. She will continue to try to meet protein goals through a combination of whole foods and shakes. She asks about nausea medication, has tried Tums; reports being followed by cardiology for frequent palpitations so I do not want to prescribe Zofran for risk of QT prolongation. Recommended she contact her OB to ask about options. RTC 3 months, can repeat labs at that time. I spent a total of 30 minutes reviewing/updating records, examining the patient and counseling the patient on weight management as detailed above.
[2024-08-05 12:47] VITALS: BMI 30.5
== END 2024-08-05 13:01 | disposition home or self-care (01) ==
LOC: HO.HBS 12:52
PROVIDERS: Visit Provider Physician Assistant Surgical
DX: E66.811 Obesity, class 1 (principal); Z68.30 Body mass index [BMI] 30.0-30.9, adult; Z90.3 Acquired absence of stomach [part of]; Z98.84 Bariatric surgery status
CPT/HCPCS: 99214; G2211

== ENCOUNTER → 2024-08-05 12:52 | Outpatient (BNVA) | payer OTHER, SELFPAY | PROVIDERS: Visit Provider Physician Assistant Surgical ==

== ENCOUNTER 2024-08-27 14:45 | Outpatient (RCR) | payer OTHER, SELFPAY ==
[2024-07-02 14:58] VITALS: BP 111/53; PULSE 95; RESP 20; TEMP 37.2; O2SAT 99
[2024-07-02] MEDS: Acetaminophen 325 MG TABLET 650 MG PO (15:04)
[2024-07-02] MEDS: diphenhydrAMINE HCL 25 MG CAPSULE PO (15:04)
[2024-07-02] MEDS: Iron Sucrose Complex 200 MG/10 ML VIAL IVPUSH (15:15)
--- NOTE | 2024-07-02 15:30 | HO.INF ---
pt ; was premedicated with po tylenol and benadryl prior to venofer admin d/t reaction hx to different fe formulation. venofer 200mg given by iv push over 10 min. pt tolerated well w/o reaction.
[2024-07-15 14:05] VITALS: BP 118/68; PULSE 91; RESP 20; TEMP 37.2; O2SAT 100
[2024-07-15] MEDS: Acetaminophen 325 MG TABLET 650 MG PO (14:07)
[2024-07-15] MEDS: diphenhydrAMINE HCL 25 MG CAPSULE PO (14:07)
[2024-07-15] MEDS: Iron Sucrose Complex 200 MG/10 ML VIAL IVPUSH (14:14)
[2024-07-23 14:52] VITALS: BP 106/61; PULSE 98; RESP 18; TEMP 37.5; O2SAT 97
[2024-07-23] MEDS: diphenhydrAMINE HCL 25 MG CAPSULE PO (14:53)
[2024-07-23] MEDS: Acetaminophen 325 MG TABLET 650 MG PO (14:54)
[2024-07-23] MEDS: Iron Sucrose Complex 200 MG/10 ML VIAL IVPUSH (15:00)
[2024-08-13 08:25] VITALS: BP 104/50; PULSE 87; RESP 16; TEMP 37.3; O2SAT 98
[2024-08-13] MEDS: Acetaminophen 325 MG TABLET 650 MG PO (08:26)
[2024-08-13] MEDS: diphenhydrAMINE HCL 25 MG CAPSULE PO (08:26)
[2024-08-13] MEDS: Iron Sucrose Complex 200 MG/10 ML VIAL IVPUSH (08:30)
--- NOTE | 2024-08-13 08:36 | HO.INF ---
venofer given over 10 minutes iv push. pt tolerated well w/o complaints. no reactions noted. see previous note as to why.
[2024-08-20 14:54] VITALS: BP 104/66; PULSE 79; RESP 20; TEMP 36.6
[2024-08-20] MEDS: Iron Sucrose Complex 200 MG/10 ML VIAL IVPUSH (15:03)
[2024-08-27 14:42] VITALS: BP 105/57; PULSE 84; RESP 20; TEMP 37.2; O2SAT 98
[2024-08-27] MEDS: Acetaminophen 325 MG TABLET 650 MG PO (14:44)
[2024-08-27] MEDS: Iron Sucrose Complex 200 MG/10 ML VIAL IVPUSH (14:49)
--- NOTE | 2024-08-27 14:51 | HO.INF ---
Addendum entered and electronically signed by Jose Ceballos RN 08/27/24 14:55: venofer administered over 10 min Original Note: benadryl not administered per pt request; states she has appt for checkup and wants baby to be active
== END 2024-08-27 15:03 | disposition home or self-care (01) ==
LOC: HO.INF 14:45
PROVIDERS: Visit Provider Internal Medicine
DX: D50.9 Iron deficiency anemia, unspecified (principal)
CPT/HCPCS: 96374; J1756

== ENCOUNTER 2024-11-03 13:13 | Outpatient (AMB) | payer OTHER, SELFPAY ==
--- NOTE | 2024-11-03 13:01 | MHC.OFFVISWM ---
VS Expanded 11/03/24 13:04 Height 5 ft 4 in Weight 194 lb BMI 33.3 Intake Visit Reasons: Telephone PO LSG 07/03/21 Allergies quetiapine [From SEROQUEL] Allergy (Severe, Verified 11/04/23 17:11) ANAPHYLAXIS cefotetan Allergy (Verified 11/04/23 17:11) Hives oxycodone [From PERCOCET] Adverse Reaction (Unknown, Verified 11/04/23 17:11) tachycardia, sweating ferumoxytol [From Feraheme] Adverse Reaction (Verified 06/21/24 15:10) Difficulty Breathing Medication List - Last Reconciled 11/03/24 by RICHARD Cope No Known Home Meds HPI Comments Details: This?is a?29?yo female who is s/p LSG 07/03/2021. Currently in 3rd trimester of , due December 30. Weight at last visit in Jul 2024 was 172lbs. Current weight 194lbs. Being followed for anemia with hematology. Nausea has improved, has frequent weird taste in my mouth . Present meal plan includes: no more shakes, just taking in whole foods taking a vitamin PFSH Medical History Hemorrhoids with complication Steatosis, liver History of anemia PTSD (post-traumatic stress disorder) Depression Migraines Screen for STD (sexually transmitted disease) Abnormal uterine bleeding (AUB) Anxiety GERD (gastroesophageal reflux disease) Morbid obesity Encounter for IUD removal Malpositioned IUD PCOS (polycystic ovarian syndrome) Endometriosis No known health problems Surgical History History of hemorrhoidectomy (~08/08/23) S/P laparoscopic sleeve gastrectomy Hx of wisdom tooth extraction Family History Mother Anemia Asthma Sister Anemia Maternal Grandmother Stroke Asthma Family/Other Heart attack Brother Asthma Maternal Aunt Asthma Paternal Grandfather Diabetes Paternal Grandmother Dementia Father No problems noted. Social History Household Members: Significant Other Housing: Apartment Are you a primary critical care nurse practitioner to a significant other at home: No Do you presently have visiting nurse or other home services: No Alcohol intake: current Alcohol intake frequency: holidays/special occasions only Patient Tobacco Use Status: Never used Tobacco Substance Use Type: Marijuana service: No Current occupational status: employed Female Reproductive History Menstrual Age of Menarche: 9 Telehealth Telehealth Telehealth Platform: Telephone Location of provider rendering services: other Location of patient: address on file Patient Identification confirmed using: Name, : Yes Telehealth method: voice only Patient verbally consented to treatment: Yes Patient verbally consented to billing insurance company: Yes Patient informed of any privacy concerns related to visit: Yes Minutes spent on Phone/Video with Pt.: 16 Assessment & Plan Assessment & Plan (1) : Code(s): Z34.90 - Encounter for supervision of normal , unspecified, unspecified trimester Category: Medical (2) S/P laparoscopic sleeve gastrectomy: Comment: 07/03/21 Code(s): Z98.84 - Bariatric surgery status Category: Surgical Plan Pt to continue high protein meal plan, can use mostly whole foods; she wants to resume weight loss efforts soon after , can plan to meet again at 6w once she is cleared for exercise. She plans to breastfeed. 3rd trimester labs ordered. RTC early Feb. Orders: Orders Hemoglobin A1c Today Z98.84 - Bariatric surgery status Complete Blood Count Auto Diff Today Z98.84 - Bariatric surgery status Lipid Panel Today Z98.84 - Bariatric surgery status Vitamin B12 and Folate Today Z98.84 - Bariatric surgery status C Reactive Protein Today Z98.84 - Bariatric surgery status Vitamin B1 Today Z98.84 - Bariatric surgery status Vitamin A Today Z98.84 - Bariatric surgery status Vitamin D 25-OH Total Today Z98.84 - Bariatric surgery status Insulin Today Z98.84 - Bariatric surgery status IRON PROFILE Today Z98.84 - Bariatric surgery status Comprehensive Met. Panel Today Z98.84 - Bariatric surgery status Zinc Today Z98.84 - Bariatric surgery status TSH reflex Free T4 Today Z98.84 - Bariatric surgery status Ferritin Today Z98.84 - Bariatric surgery status
[2024-11-03 13:04] VITALS: BMI 33.3
== END 2024-11-03 13:22 | disposition home or self-care (01) ==
LOC: HO.HBS 13:13
PROVIDERS: Visit Provider Physician Assistant Surgical
DX: Z34.90 Encounter for supervision of normal pregnancy, unspecified, unspecified trimester (principal); Z98.84 Bariatric surgery status
CPT/HCPCS: 99214; G2211

== ENCOUNTER 2024-11-05 07:16 | Outpatient (REF) | payer OTHER, SELFPAY ==
[2024-11-05 07:36] LABS: MANUAL DIFF FLAG NO
[2024-11-05 08:23] LABS: Basophils Percent Auto 0.1 % (0-2); Eosinophils Percent Auto 0.3 % (0-4); Hematocrit 34.1 % (37.0-47.0); Hemoglobin 12.2 g/dl (12.0-16.0); Imm Gran Abs Auto 0.04 X10*3/uL (0.00-0.03); Imm Gran Pct Auto 0.5 % (0.0-0.4); Lymphocytes Absolute Auto 0.6 X10*3/uL (1.2-4.9); Lymphocytes Percent Auto 7.6 % (20-40); Mean Corpuscular HGB Conc 35.8 g/dl (31.0-35.0); Mean Corpuscular Hemoglobin 32.2 pg (27.0-33.0); Mean Platelet Volume 10.9 fL (9.4-12.3); Monocytes Absolute Auto 0.3 X10*3/uL (0.1-1.2); Monocytes Percent Auto 3.8 % (2-11); Neutrophils Percent Auto 87.7 % (45-73); Platelet Count 152 X10*3/uL (160-400); Red Blood Count 3.79 X10*6/uL (4.20-5.50); Red Cell Distribution Width 13.3 % (11.0-16.0); White Blood Count 7.9 X10*3/uL (4.8-10.8)
[2024-11-05 08:28] LABS: Total Hemoglobin (HGBA1C) 3224.7876 umol/L
[2024-11-05 08:29] LABS: Estimated Average Glucose 105 mg/dL; Hemoglobin A1c % 5.3 % (<6.0)
[2024-11-05 09:17] LABS: Alanine Aminotransferase 9 U/L (0-31); Albumin Level 3.5 g/dL (3.5-5.0); Alkaline Phosphatase 70 U/L (39-117); Anion Gap 11 (12-20); Aspartate Amino Transferase 19 U/L (5-31); Bilirubin Total 0.4 mg/dL (0.0-1.0); Blood Urea Nitrogen 10 mg/dL (9-16); C Reactive Protein 0.61 mg/dL (< or = 0.50); Calcium 8.5 mg/dL (8.4-10.2); Carbon Dioxide 21 mmol/L (22-29); Chloride 108 mmol/L (96-108); Cholesterol 258 mg/dL (<200); Estimated Glomerular Filt Rate > 60; Glucose Random 84 mg/dL (60-115); HDL Cholesterol 77 mg/dL (>40); Iron 136 mcg/dL (30-160); LDL Cholesterol Calculated 152 mg/dL (<100); Percent Iron Saturation 33 % (15-50); Potassium 4.1 mmol/L (3.3-5.1); Sodium 136 mmol/L (135-145); Total Iron Binding Capacity 411 mcg/dL (228-428); Total Protein 7.1 g/dL (6.5-8.0); Triglycerides 145 mg/dL (<150); Unsaturated Iron Binding 275 ug/dL
[2024-11-05 09:24] LABS: Ferritin 12 ng/mL (10-122); TSH reflex Free T4 2.63 uIU/mL (0.32-4.0); Vitamin D 25-OH Total 18.1 ng/mL (>30)
[2024-11-05 09:27] LABS: Folate 9.9 ng/mL (> or = 4.0); Vitamin B12 179 pg/mL (200-900)
[2024-11-05 10:57] LABS: Insulin 5 uU/mL (2-29)
[2024-11-08 19:58] LABS: Zinc 55 mcg/dL (60-130)
[2024-11-09 16:29] LABS: Vitamin A 47 mcg/dL (38-98)
[2024-11-12 04:13] LABS: Vitamin B1 7 nmol/L (8-30)
== END 2024-11-05 07:17 | disposition home or self-care (01) ==
LOC: HO.LAB 07:16
PROVIDERS: Visit Provider Physician Assistant Surgical
DX: Z98.84 Bariatric surgery status (principal)
CPT/HCPCS: 36415; 80053; 80061; 82306; 82607; 82728; 82746; 83036; 83525; 83540; 84425; 84443; 84590; 84630; 85025; 86140

== ENCOUNTER 2025-04-29 09:00 | Outpatient (AMB) | payer OTHER, SELFPAY ==
--- NOTE | 2025-04-29 09:10 | A.OFFVIS_ITS ---
VS Expanded 04/29/25 09:12 Height 5 ft 4 in Weight 192 lb BMI 33.0 Intake Visit Reasons: TV PO LSG 07/03/21 Allergies quetiapine (From SEROQUEL) Allergy (Severe, Verified 11/04/23 17:11) ANAPHYLAXIS cefotetan Allergy (Verified 11/04/23 17:11) Hives oxycodone (From PERCOCET) Adverse Reaction (Unknown, Verified 11/04/23 17:11) tachycardia, sweating ferumoxytol (From Feraheme) Adverse Reaction (Verified 06/21/24 15:10) Difficulty Breathing Medication List - Last Reconciled 04/29/25 by RICHARD Cope No Known Home Meds HPI Comments Details: This?is a?29?yo F who is s/p LSG 07/03/2021. Presents for 4 year 10 month post op visit. No complaints of nausea, emesis, abdominal pain or reflux, or constipation. Pt working on weaning from . 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 Present meal plan includes: Boost shakes- strawberry cream uses [employer] protein bars 7pm dinner, 8-9am wakeup and bedtime is 8-9pm Exercise routine includes: nothing currently [facility] Medical History Hemorrhoids with complication Steatosis, liver History of anemia PTSD (post-traumatic stress disorder) Depression Migraines Screen for STD (sexually transmitted disease) Abnormal uterine bleeding (AUB) Anxiety GERD (gastroesophageal reflux disease) Morbid obesity Encounter for IUD removal Malpositioned IUD PCOS (polycystic ovarian syndrome) Endometriosis No known health problems Surgical History History of hemorrhoidectomy (~08/08/23) S/P laparoscopic sleeve gastrectomy Hx of wisdom tooth extraction Family History Mother Anemia Asthma Sister Anemia Maternal Grandmother Stroke Asthma Family/Other Heart attack Brother Asthma Maternal Aunt Asthma Paternal Grandfather Diabetes Paternal Grandmother Dementia Father No problems noted. Social History Household Members: Significant Other Housing: Apartment Are you a primary adult care manager to a significant other at home: No Do you presently have visiting nurse or other home services: No Alcohol intake: current Alcohol intake frequency: holidays/special occasions only Patient Tobacco Use Status: Never used Tobacco Substance Use Type: Marijuana service: No Current occupational status: employed Female Reproductive History Menstrual Age of Menarche: 9 Telehealth Telehealth Telehealth Platform: Telephone Location of provider rendering services: other Location of patient: address on file Patient Identification confirmed using: Name, : Yes Telehealth method: voice only Patient verbally consented to treatment: Yes Patient verbally consented to billing insurance company: Yes Patient informed of any privacy concerns related to visit: Yes Minutes spent on Phone/Video with Pt.: 15 Assessment & Plan Assessment & Plan (1) Obesity: Code(s): E66.9 - Obesity, unspecified Category: Medical (2) S/P laparoscopic sleeve gastrectomy: Comment: 07/03/21 Code(s): Z98.84 - Bariatric surgery status Category: Surgical Plan New meal plan based on pt's preferences for products- 9-11am Boost shake 12-2pm Quest bar 3-5pm Boost shake dinner 7pm- 6ff meat, 6ff salad or vegetables We discussed phentermine. Pt is interested however I told her that she needs to completely wean baby first, even from suckling as she is now doing. Once completely weaned I can prescribe. She understands she will need to check BP daily and send me measurements while taking. Labs ordered. RTC in August for TV 30 min. Orders: Orders Complete Blood Count Auto Diff Today Z.84 - Bariatric surgery status Comprehensive Met. Panel Today Z.84 - Bariatric surgery status C Reactive Protein Today Z98.84 - Bariatric surgery status Lipid Panel Today Z.84 - Bariatric surgery status Vitamin B12 and Folate Today Z98.84 - Bariatric surgery status Vitamin D 25-OH Total Today Z98.84 - Bariatric surgery status Zinc Today Z98.84 - Bariatric surgery status Insulin Today Z98.84 - Bariatric surgery status TSH reflex Free T4 Today Z98.84 - Bariatric surgery status Vitamin B1 Today Z98.84 - Bariatric surgery status Ferritin Today Z98.84 - Bariatric surgery status Vitamin A Today Z98.84 - Bariatric surgery status IRON PROFILE Today Z98.84 - Bariatric surgery status
[2025-04-29 09:12] VITALS: BMI 33.0
== END 2025-04-29 09:30 | disposition home or self-care (01) ==
LOC: HO.HBS 09:00
PROVIDERS: Visit Provider Physician Assistant Surgical
DX: E66.9 Obesity, unspecified (principal); Z98.84 Bariatric surgery status
CPT/HCPCS: 99214